=== PATIENT | female | born 1955 | race Caucasian/White ===

== ENCOUNTER → 2017-11-30 08:10 | Outpatient (CLI) | payer OTHER, SELFPAY ==
[2017-11-30 10:27] LABS: Cholesterol 241 mg/dL (200); Glucose 97 mg/dL (74-106); High Density Lipoprotein 57 mg/dL; T4 Free Direct 1.06 ng/dL (0.76-1.46); Thyroid Stim Hormone (TSH) 2.08 uIU/mL (0.358-3.74); Triglycerides 96 mg/dL; Very Low Density Lipoprotein 19 mg/dL (5-40)
== END ==
PROVIDERS: Family Provider Family Medicine; PCP Family Medicine; Referring Provider Family Medicine; Visit Provider Family Medicine
DX: Z13.220 Encounter for screening for lipoid disorders (principal); Z13.1 Encounter for screening for diabetes mellitus; F32.9 Major depressive disorder, single episode, unspecified; R63.5 Abnormal weight gain
CPT/HCPCS: 36415; 80061; 82947; 84439; 84443

== ENCOUNTER → 2018-01-30 08:28 | Outpatient (CLI) | payer OTHER, SELFPAY ==
--- NOTE | 2018-01-30 08:33 | BI_ITS ---
MAMMOGRAPHY - BILATERAL SCREENING REASON FOR EXAM: Female, 62 years old. Routine annual screening examination. PERTINENT HISTORY: Non-contributory. TECHNIQUE: Digital bilateral breast dequan (3D mammographic acquisition) in the CC and MLO projections. 2-D mediolateral oblique (MLO) and craniocaudad (CC) views of both breasts were obtained. CAD: Full Field Digital Mammography with Computer Added Detection was performed. COMPARISON: Comparison is made with prior outside examination dated September 30, 2007. FINDINGS: Breast Composition: There are scattered areas of fibroglandular density. There are no dominant masses or suspicious calcifications. There is a 5.8 mm slightly irregular nodular density seen in the central portion of the right breast on the craniocaudad view. This is not well visualized on the MLO view. The patient will be recalled for additional views of the right breast including compression spot views and 90 degree lateral view. Stable 3.7 mm well-defined nodular density in the axillary region of the right breast. This most likely represents a small lymph node. Stable benign-appearing bilateral axillary lymph nodes. No other significant abnormalities are identified. There has been no significant change since the prior study. BI/SCREENING MAMM (CAD), BILAT IMPRESSION: 5.8 mm slightly irregular nodular density seen in the central portion of the right breast on the craniocaudad view. The patient will be recalled for additional views. Recall Side: Right Breast ASSESSMENT CATEGORY: BIRADS Category 0: Incomplete. Need additional imaging evaluation. A letter regarding these results will be sent to the patient by the facility within 30 days. Approximately 10% of breast cancers are not detected by mammography. A normal mammogram should not delay biopsy of a clinically suspicious abnormality. [id number] Electronically Signed: Elmer Fox MD at 8:34 EST Tel [phone], Service support ,
--- OUTSIDE RECORDS SUMMARY | 2018-03-18 03:39 | XMS RPT_ITS ---
:1955 Author Organization [facility] Care Team Providers Name Role Phone Bowen Barnes Attending Unavailable Bowen Barnes Primary Care Unavailable Bowen Barnes Attending Unavailable Bowen Barnes Primary Care Unavailable Fabian Noguera Attending Unavailable Bowen Barnes Referring Unavailable Bowen Barnes Primary Care Unavailable Bowen Barnes Attending Unavailable Bowen Barnes Referring Unavailable Bowen Barnes Primary Care Unavailable PROBLEMS PROBLEMS DATE TYPE CONDITION / CODE ATTENDING STATUS SOURCE 11/30/2017 Unknown Z13.220 - Bowen Barnes Active [facility] Encounter for [facility] screening for Hospital lipoid disorders Repository / Z13.220(ICD-10) 11/30/2017 Unknown Z13.1 - Encounter Bowen Barnes for screening for Community diabetes mellitus Hospital / Z13.1(ICD-10) Repository 11/30/2017 Unknown F32.9 - Major Bowen Barnes Active [place] depressive Community disorder, single Hospital episode, Repository unspecified / F32.9(ICD-10) 11/30/2017 Unknown R63.5 - Abnormal Bowen Barnes Active [place] weight gain / Community R63.5(ICD-10) Hospital Repository PROCEDURES PROCEDURES No Procedure Records FoundRESULTS RESULTS DIAG MAMM W/CAD, Observed: 02/06/2018 Status: F Source: [place] UNILAT 1:52 PM [facility] Imaging Services [address] [place] [address] DIAG MAMM W/CAD, UNILAT MR#: [id number] Acct: [id number] Name: BRENDA BENITEZ Rep #: [id number] : 1955 F 62 From: Elmer Fox MD PCP: Bowen Barnes MD Status: REG CLI Study: DIAG MAMM W/CAD, UNILAT Date of Exam: 02/06/18 Exam# [id number] Ordering Dr: Bowen Barnes MD MAMMOGRAPHY - UNILATERAL DIAGNOSTIC: RIGHT BREAST REASON FOR EXAM: Female, 62 years old. Abnormal screening mammogram. PERTINENT HISTORY: Non-contributory. TECHNIQUE: Compression spot views of the right breast were obtained in the craniocaudad and MLO views. CAD: Full Field Digital Mammography with Computer Added Detection was performed. COMPARISON: Comparison is made with prior mammogram dated January 30, 2018. FINDINGS: Breast Composition: There are scattered areas of fibroglandular density. Stable 6 mm nodular density seen in the central most likely upper aspect of the right breast. Ultrasound is recommended. No other significant abnormalities are identified. BI/DIAG MAMM W/CAD, UNILAT IMPRESSION: Persistent 6 mm nodule in the right breast as described. Correlation with ultrasound is recommended. ASSESSMENT CATEGORY: BIRADS Category 0: Incomplete. Need additional imaging evaluation. A letter regarding these results will be sent to the patient by the facility within 30 days. Approximately 10% of breast cancers are not detected by mammography. A normal mammogram should not delay biopsy of a clinically suspicious abnormality. Electronically Signed: Elmer Fox MD at 15:02 EST Tel [phone], Service support , CC: Bowen Barnes MD Communications Project Manager: Signed BREAST LIMITED Observed: 02/06/2018 Status: F Source: [place] UNILATERAL 1:52 PM [facility] Imaging Services [address] [place] [address] Breast Limited Unilateral MR#: [id number] Acct: [id number] Name: BRENDA BENITEZ Rep #: [id number] : 1955 F 62 From: Elmer Fox MD PCP: Bowen Barnes MD Status: REG CLI Study: Breast Limited Unilateral Date of Exam: 02/06/18 Exam# [id number] Ordering Dr: Bowen Barnes MD STUDY: ULTRASOUND BREAST - RIGHT REASON FOR EXAM: Female, 62 years old. Abnormal screening mammogram. TECHNIQUE: Axial and longitudinal images of the RIGHT breast were performed with a high resolution ultrasound transducer. COMPARISON: Comparison is made with prior mammogram done earlier today as well as January 30, 2018. FINDINGS: RIGHT Breast: There is a 3 mm x 3 mm x 2 mm cyst at the 9:00 position breast 1 cm from nipple. US/Breast Limited Unilateral IMPRESSION: The mammographic abnormality corresponds to a 3 mm x 3 mm x 2 mm cyst. Routine mammographic follow-up is recommended. ASSESSMENT CATEGORY: BIRADS Category 2: Benign. A letter regarding these results will be sent to the patient by the facility within 30 days. Electronically Signed: Elmer Fox MD at 15:32 EST Tel [phone], Service support , CC: Bowen Barnes MD Communications Project Manager: Signed SCREENING MAMM (CAD), Observed: 01/30/2018 Status: F Source: [facility] BILAT 8:33 AM [facility] Imaging Services [address] [place] [address] SCREENING MAMM (CAD), BILAT MR#: [id number] Acct: [id number] Name: BRENDA BENITEZ Rep #: [id number] : 1955 F 62 From: Elmer Fox MD PCP: Bowen Barnes MD Status: REG CLI Study: SCREENING MAMM (CAD), BILAT Date of Exam: 01/30/18 Exam# [id number] Ordering Dr: Bowen Barnes MD MAMMOGRAPHY - BILATERAL SCREENING REASON FOR EXAM: Female, 62 years old. Routine annual screening examination. PERTINENT HISTORY: Non-contributory. TECHNIQUE: Digital bilateral breast dequan (3D mammographic acquisition) in the CC and MLO projections. 2-D mediolateral oblique (MLO) and craniocaudad (CC) views of both breasts were obtained. CAD: Full Field Digital Mammography with Computer Added Detection was performed. COMPARISON: Comparison is made with prior outside examination dated September 30, 2007. FINDINGS: Breast Composition: There are scattered areas of fibroglandular density. There are no dominant masses or suspicious calcifications. There is a 5.8 mm slightly irregular nodular density seen in the central portion of the right breast on the craniocaudad view. This is not well visualized on the MLO view. The patient will be recalled for additional views of the right breast including compression spot views and 90 degree lateral view. Stable 3.7 mm well-defined nodular density in the axillary region of the right breast. This most likely represents a small lymph node. Stable benign-appearing bilateral axillary lymph nodes. No other significant abnormalities are identified. There has been no significant change since the prior study. BI/SCREENING MAMM (CAD), BILAT IMPRESSION: 5.8 mm slightly irregular nodular density seen in the central portion of the right breast on the craniocaudad view. The patient will be recalled for additional views. Recall Side: Right Breast ASSESSMENT CATEGORY: BIRADS Category 0: Incomplete. Need additional imaging evaluation. A letter regarding these results will be sent to the patient by the facility within 30 days. Approximately 10% of breast cancers are not detected by mammography. A normal mammogram should not delay biopsy of a clinically suspicious abnormality. [id number] Electronically Signed: Elmer Fox MD at 8:34 EST Tel [phone], Service support , CC: Bowen Barnes MD Communications Project Manager: Signed LIPID PROFILE Collected: 11/30/2017 Status: F Source: [place] 8:20 AM [facility] TYPE CODE TESTS RESULT OUT OF RANGE REFERENCE UNITS LAB L501.4900 200 mg/dL High CHOL 241 Result Comment: <200 mg/dL Desirable 200-240 mg/dL Borderline >240 mg/dL High Risk LAB L501.5000 mg/dL Normal TRIG 96 Result Comment: The drugs N-Acetylcysteine and Metamizole may falsely depress this assay. Serum Triglycerides Reference Interval Normal <150 mg/dL Borderline high 150 - 199 mg/dL High 200 - 499 mg/dL Very High > or = 500 mg/dL LAB L501.6400 mg/dL Normal HDL 57 Result Comment: The drugs N-Acetylcysteine and Metamizole may falsely depress this assay. Reference Range HDL <40 mg/dL Low HDL Cholesterol HDL >or= 60 mg/dL High HDL Cholesterol LAB L501.6500 0-130 mg/dL High LDL 165 LAB L501.6600 5-40 mg/dL Normal VLDL 19 Performed By: #### L500.4100, L501.0100, L501.9520, L506.0400 #### [facility] [address] [place], [address] GLUCOSE Collected: 11/30/2017 Status: F Source: [place] 8:20 AM [facility] TYPE CODE TESTS RESULT OUT OF RANGE REFERENCE UNITS LAB L501.0100 74-106 mg/dL Normal GLU 97 Result Comment: Please note revised GLUCOSE reference range effective 2017. Performed By: #### L500.4100, L501.0100, L501.9520, L506.0400 #### [facility] [address] [place], [place], [address] THYROID STIM HORMONE Collected: 11/30/2017 Status: F Source: [place] (TSH) 8:20 AM [facility] TYPE CODE TESTS RESULT OUT OF RANGE REFERENCE UNITS LAB L501.9520 0.358-3.74 uIU/mL Normal TSH 2.08 Performed By: #### L500.4100, L501.0100, L501.9520, L506.0400 #### [facility] [address] [facility] [address] [place], [place], [address] T4 FREE DIRECT Collected: 11/30/2017 Status: F Source: [place] 8:20 AM [facility] TYPE CODE TESTS RESULT OUT OF RANGE REFERENCE UNITS LAB L506.0400 0.76-1.46 ng/dL Normal T4 FREE 1.06 DIRECT Performed By: #### L500.4100, L501.0100, L501.9520, L506.0400 #### [facility] [address] [facility] [place], [place], [address] URGENT CARE VISIT Observed: 04/01/2017 Status: F Source: [place] REPORT 9:46 AM [facility] [address] [place] [address] [address] [place] [address] OFFICE VISIT Date of Service: 04/01/17 MR#: [id number] Acct: [id number] Name: BRENDA BENITEZ Rep #: [id number] : 1955 Provider: Fabian GAMBOA Age/Sex: 61/F Location: [facility] Status: Signed Intake Vital Signs04/01/17 Height 5 ft 4 in 04/01/17 Weight: 206 lb 04/01/17 Body Mass Index (BMI) 35.3 Intake Visit Reasons: CHEST CONGESTION, SORE THROAT Security Dispatcher Required: No Is patient in pain?: No Allergies Sulfa (Sulfonamide Antibiotics) Allergy (Verified 04/01/17 09:36) Itching Medications amoxicillin 875 mg-potassium clavulanate 125 mg tablet 1 tab PO Q12H 10 Days #20 tab 04/01/17 [Rx Confirmed 04/01/17] PFSH Surgical History History of hysterectomy (Acute) Social History Smoking Status: Former smoker alcohol intake: never HPI HPI Details: BRENDA BENITEZ, is a 61 F who presents to the office today for sinus pain and pressure as well as a cough for approximately last 7 days. Patient states that she has had a cough and chest congestion for the 7 days however over the past 3-4 days her nasal pain and pressure has increased causing headaches. She states that her cough has been dry and nonproductive and denies hemoptysis, shortness of breath or difficulty breathing. She does report that the headaches are made better with ibuprofen or Tylenol. No fever, chills, sweats. No other associated symptoms or alleviating/aggravating factors. ROS Const Constitutional: Positive for headache(s); no fever(s), chills, night sweats or abnormal sleep pattern ENT ENT: Positive for headache(s), nasal congestion, sinus pressure, sinus pain and nasal discharge; no ear pain Resp Respiratory: Positive for cough Cough: Yes non-productive; no shortness of breath, hemoptysis, wheezing or pain on inspiration Cardio Cardiology: No shortness of breath, irregular heart rhythm or fast heart rate Neuro Neurology: Positive for headache(s); no confusion Psych Psychiatric: No abnormal sleep pattern, No confusion Aller/Imm Allergy/Immunologic: No wheezing Exam Const General: cooperative HENMT Head: normal to inspection Ears: hearing grossly normal bilaterally, TM's normal bilaterally, EAC's normal Nose: nasal discharge purulent Face and sinus: sinus tenderness frontal and maxillary Mouth: oral mucosae normal Throat: abnormal tonsil bilaterally, postnasal drainage Resp Effort AND Inspection: normal respiratory effort Auscultation: Bilateral: Clear to Auscultation Cardio Rate: regular rate Rhythm: regular rhythm Neuro General: alert, CN's II-XI intact bilaterally Psych Appearance: grossly normal Mental Status: mental status grossly normal Assessment AND Plan Problems 1. Acute non-recurrent frontal sinusitis J01.10 Status Acute Plan Encouraged to get plenty of rest, drink lots of clear liquids, and use Tylenol or Ibuprofen (unless contraindicated) for fever and comfort. Patient also educated on other symptomatic management techniques. To be seen in 7-10 days if no improvement; sooner if worsening of symptoms. Patient advised of potential red flags and when appropriate report to the ED. Patient verbalized understanding of all the above. This note was generated with bettermarks dictation software. It may contain incorrect words, spelling, and punctuation that were not noted in checking the note before signing. Medications New: Coding Level of Care Code Off vis,est,level 3 Diagnoses Acute non-recurrent frontal sinusitis J01.10 Sinusitis location: frontal Recurrence: non-recurrent 04/01/17 0946 <Electronically signed by Fabian GAMBOA> Date Fabian GAMBOA Cosigner Signature: Date (if applicable) CC: ALLERGIES ALLERGIES DATE TYPE / CODE NAME / CODE REACTION SEVERITY SOURCE 04/01/2017 Drug Sulfa Itching Unknown [facility] Allergy/4160 (Sulfonamide Hospital 84448(SNOMED Antibiotics)/ Repository CT) [id number](RX NORM) ENCOUNTERS ENCOUNTERS ADMIT/DISCHARGE ACCOUNT ADMITTING ENCOUNTER LOCATION SOURCE NUMBER CLASS 02/06/2018 [id number] Ambulatory [place] [facility] 1 [facility] ing:OPUS Repository 01/30/2018 [id number] Ambulatory [place] [facility] 8 [facility] ing:OPBI Repository 11/30/2017 [id number] Ambulatory [facility] 8 [facility] ing:MTLAB Repository 04/01/2017/ [id number] Ambulatory BMSBuilding:B [facility] 8 9 [facility] Repository PAYERS PAYERS ENCOUNTER GUARANTOR PAYER SUBSCRIBER SOURCE 02/06/2018 BRENDA S Primary BRENDA S [facility] [id number] Insurance:Kenia OLIVASB: [facility] margo BROWNE [facility]: [id number] [address]Tey: [id number] Repository e Date:4861-03-75VZ () [address] [place] [phone]: 02/06/2018 Secondary NOT GIVENUNK [facility] Insurance:SELF PAY [facility] Number: Effective Repository Date:2018-02-05 01/30/2018 BRENDA S Primary BRENDA S Roman [id number] Insurance:AULTCAREPol JOHNSONDOB: Community CHIQUI MALIK, icy Number: [id number] [address]Ndq: [id number] Repository e Date:7052-51-26YL () [address] [place] [id number]: 01/30/2018 Secondary NOT GIVENUNK [place] Insurance:SELF PAY [facility] Number: Effective Repository Date:2017-12-14 11/30/2017 BRENDA S Primary BRENDA S [facility] [id number] Insurance:AULTCAREPol JOHNSONDOB: [facility] CHIQUI MALIK, icy Number: [id number] [address]Ket: [id number] Repository e Date:7515-74-78AL () [address] [place] [id number]: 11/30/2017 Secondary NOT GIVENUNK [place] Insurance:SELF PAY [facility] Number: Effective Repository Date:2017-11-30 04/01/2017 BRENDA S Primary BRENDA S [facility] [id number] Insurance:AULTCAREPol JOHNSONDOB: Community CHIQUI MALIK, icy Number: [id number] [address]Tjt: [id number] Repository e Date:9105-42-87RB () [address] [place] [id number]: 04/01/2017 Secondary NOT GIVENUNK [facility] Insurance:SELF PAY [facility] Number: Effective Repository Date:2017-04-01
== END ==
PROVIDERS: Family Provider Family Medicine; PCP Family Medicine; Visit Provider Family Medicine
DX: Z12.31 Encounter for screening mammogram for malignant neoplasm of breast (principal); N63.10 Unspecified lump in the right breast, unspecified quadrant
CPT/HCPCS: 77063; 77067

== ENCOUNTER → 2018-02-06 13:48 | Outpatient (CLI) | payer OTHER, SELFPAY ==
--- NOTE | 2018-02-06 13:51 | US_ITS ---
STUDY: ULTRASOUND BREAST - RIGHT REASON FOR EXAM: Female, 62 years old. Abnormal screening mammogram. TECHNIQUE: Axial and longitudinal images of the RIGHT breast were performed with a high resolution ultrasound transducer. COMPARISON: Comparison is made with prior mammogram done earlier today as well as January 30, 2018. FINDINGS: RIGHT Breast: There is a 3 mm x 3 mm x 2 mm cyst at the 9:00 position breast 1 cm from nipple. US/Breast Limited Unilateral IMPRESSION: The mammographic abnormality corresponds to a 3 mm x 3 mm x 2 mm cyst. Routine mammographic follow-up is recommended. ASSESSMENT CATEGORY: BIRADS Category 2: Benign. A letter regarding these results will be sent to the patient by the facility within 30 days. Electronically Signed: Elmer Fox MD at 15:32 EST Tel [phone], Service support ,
--- NOTE | 2018-02-06 13:51 | BI_ITS ---
MAMMOGRAPHY - UNILATERAL DIAGNOSTIC: RIGHT BREAST REASON FOR EXAM: Female, 62 years old. Abnormal screening mammogram. PERTINENT HISTORY: Non-contributory. TECHNIQUE: Compression spot views of the right breast were obtained in the craniocaudad and MLO views. CAD: Full Field Digital Mammography with Computer Added Detection was performed. COMPARISON: Comparison is made with prior mammogram dated January 30, 2018. FINDINGS: Breast Composition: There are scattered areas of fibroglandular density. Stable 6 mm nodular density seen in the central most likely upper aspect of the right breast. Ultrasound is recommended. No other significant abnormalities are identified. BI/DIAG MAMM W/CAD, UNILAT IMPRESSION: Persistent 6 mm nodule in the right breast as described. Correlation with ultrasound is recommended. ASSESSMENT CATEGORY: BIRADS Category 0: Incomplete. Need additional imaging evaluation. A letter regarding these results will be sent to the patient by the facility within 30 days. Approximately 10% of breast cancers are not detected by mammography. A normal mammogram should not delay biopsy of a clinically suspicious abnormality. Electronically Signed: Elmer Fox MD at 15:02 EST Tel [phone], Service support ,
== END ==
PROVIDERS: Family Provider Family Medicine; PCP Family Medicine; Visit Provider Family Medicine
DX: N60.01 Solitary cyst of right breast (principal)
CPT/HCPCS: 76642; 77065

== ENCOUNTER 2019-01-11 10:43 | Emergency (ER) | payer MEDICARE, SELFPAY ==
[2019-01-11 10:44] VITALS: BP 200/98; PULSE 93; RESP 19; TEMP 36.5; O2SAT 99; BMI 39.0
--- NOTE | 2019-01-11 10:55 | EKG12_ITS ---
Test Reason : CP Blood Pressure : / mmHG Vent. Rate : 081 BPM Atrial Rate : 081 BPM P-R Int : 136 ms QRS Dur : 074 ms QT Int : 374 ms P-R-T Axes : 029 -06 -17 degrees QTc Int : 434 ms Sinus rhythm with Premature atrial complexes Nonspecific ST and T wave abnormality Abnormal ECG Confirmed by TIMOTHY BLAS, TANGELA ([id number]), editorial clerk NATASHA YEH ([id number]) on 01/14/2019 9:56:28 AM Referred By: NADYA Confirmed By:TANGELA AGUIRRE MD
[2019-01-11] MEDS: Mag Hydrox/Al Hydrox/Simeth 30 ML UDC PO (11:03)
[2019-01-11 11:06] LABS: Absolute Lymphocyte Count 1.67 X10^3/uL (0.83-4.51); Absolute Neutrophil Count 7.5 X10^3/uL (2.0-7.7); Basophil# 0.07 X10^3/uL; Basophil% 0.7 % (0-1); Eosinophil# 0.25 X10^3/uL; Eosinophils% 2.5 % (0-5); Hematocrit 42.9 % (37-47); Hemoglobin 13.7 g/dL (12.0-15.0); Lymphocyte # 1.67 X10^3/ul (4.0); Lymphocyte % 16.5 % (19-41); Mean Corp Hgb Conc 31.9 g/dL (32-36); Mean Corpuscular Hgb 26.8 pg (27.0-32.0); Mean Platelet Vol. 9.7 fl (6.2-12.0); Monocyte# 0.64 X10^3/uL; Monocyte% 6.3 % (0-10); NRBC Flagged by Analyzer 0 % (0-5); Neutrophil # 7.47 X10^3/uL (2.7-7.7); Neutrophil % 73.6 % (47-70); Platelet Count 396 K/mm3 (150-450); RBC Distribution Width CV 14.2 % (11.6-14.6); RBC Distribution Width SD 43.3 fl (35.1-43.9); Red Blood Count 5.11 M/mm3 (4.2-5.4); White Blood Count 10.1 K/mm3 (4.4-11.0)
[2019-01-11 11:27] LABS: ALB/GLOB Ratio 0.9 RATIO (0.9-2.4); AST(SGOT) 37 U/L (15-37); Alanine Aminotransfer ALT/SGPT 53 U/L (13-56); Albumin, Serum 3.7 g/dL (3.2-5.0); Alkaline Phosphatase 100 U/L (45-117); Anion Gap 7 (5-15); BUN 14 mg/dL (7-18); Calcium,Total 9.5 mg/dL (8.5-10.1); Chloride 107 mmol/L (98-107); EST Glomerular Filtration Rate 89 mL/min (>60); Est Glom Filt Rate - Afr Amer 108 mL/min (>60); Estimated Creatinine Clearance 66.28 ml/min; Globulin 4.1 g/dL (2.2-4.2); Glucose 106 mg/dL (74-106); Potassium 4.2 mmol/L (3.5-5.1); Protein, Total 7.8 g/dL (6.4-8.2); Sodium Level 141 mmol/L (136-145)
--- NOTE | 2019-01-11 11:38 | ED.VIS.GEN ---
History of Present Illness Chief Complaint: Chest Pain Detail of Chief Complaint: In in the epigastric area that started this morning Informant: Patient Onset: Today Context: Sudden Onset Timing: Continuous Quality: Dull aching epic gastric Location: Epigastric region Current Severity: Mild Maximum Severity: Severe Worsened by: Nothing Relieved by: Nothing Associated Symptoms: No associated symptoms with no radiation Narrative: Patient is 63-year-old woman with no sniffing past medical history presents with epigastric discomfort that she noted upon awakening. The pain does not radiate. Describes a dull ache. Is also burning quality. There is no radiation. There is no associated symptoms. It is not related to exertion. She has not noted any dyspnea or chest discomfort with exertion past week. She denies history of PE or DVT. She denies leg pain, swelling discoloration. She denies black or maroon stool. She denies vomiting. She denies shortness of breath, cough or URI symptoms. Prior similar symptoms: Yes - Not as severe in the past, due to GERD Recent Illness/Hospitalization: No - Past Medical History (1) History of gastroesophageal reflux (GERD) Status: Acute Past Medical History - Allergies and Home Meds Allergies/Adverse Reactions: Allergies Sulfa (Sulfonamide Antibiotics) Allergy (Verified 04/01/17 09:36) Itching Primary Care Physician: Bowen Barnes MD [Primary Care Provider] - Prior records reviewed: Yes Surgical History: hysterectomy Lives: Spouse/ Significant Other Smoking Status: Former smoker Alcohol: Rare Drugs: None Review of Systems General: Denies: Chills, Fever Eyes: Denies: Visual changes - bilaterally, Blurred Vision - bilaterally ENT: Denies: Rhinorrhea, Sore throat Cardiovascular: Reports: Chest pain. Denies: Palpitations, Heart racing, -, - Respiratory: Denies: Dyspnea, Cough, Dyspnea on exertion, Orthopnea, Paroxysmal nocturnal dyspnea Gastrointestinal: Reports: Abdominal pain. Denies: Nausea, Vomiting, Diarrhea, Constipation, Melena, Hematochezia, -, - Musculoskeletal: Denies: Myalgias, Arthralgias, Neck pain, Back pain, Swelling, Extremity Pain, -, - Skin: Denies: Rash, Wounds Endocrine: Denies: Polyuria, Polydipsia Hematologic: Denies: Easy bruising, Easy bleeding Physical Exam Vital Signs/Narrative: Vital Signs Temp Pulse Resp BP Pulse Ox 01/11/19 10:44 97.7 F L 93 19 H 200/98 H 99 Inital Vital Signs reviewed: Yes General: Well nourished, Well developed, - - Does appear uncomfortable. Head: Normocephalic, Atraumatic Eyes: Perrl, EOMI. Negative for: Pale conjunctiva, Scleral icterus ENT: Moist mucous membranes, No rhinorrhea Neck: Supple, Nontender, No lymphadenopathy, No JVD Cardiovascular: Regular rate, Regular rhythm, No murmurs, Normal S1, Normal S2 Respiratory: No distress, CTA bilaterally, Chest nontender Abdomen: Soft, Nondistended, Normal bowel sounds, No masses, Tender. Negative for: Nontender, Hepatomegaly, Splenomegaly, Mass, Pulsatile mass Rectal: Deferred Extremities: Nontender, No edema, - - There is no asymmetry, swelling, discoloration, leg vein distention, palpable cords or tenderness along the distribution of the deep venous system. Skin: Normal color, No rash Neurological: Alert, Oriented x3, Cranial nerves II-XII grossly intact, Normal Strength, Normal Sensation Psychological: Normal affect, Normal Mood Diagnostic/Tx/Re-eval Laboratory Results 01/11/19 01/11/19 10:45 10:45 WBC 10.1 RBC 5.11 Hgb 13.7 Hct 42.9 MCV 84.0 MCH 26.8 L MCHC 31.9 L RDW Std Deviation 43.3 RDW Coeff of Zahra 14.2 Plt Count 396 MPV 9.7 Immature Gran % (Auto) 0.400 Neut % (Auto) 73.6 H Lymph % (Auto) 16.5 L [place] % (Auto) 6.3 Eos % (Auto) 2.5 Baso % (Auto) 0.7 Absolute Neuts (auto) 7.5 Absolute Lymphs (auto) 1.67 Nucleated RBC % 0 Sodium 141 Potassium 4.2 Chloride 107 Carbon Dioxide 27.0 Anion Gap 7 BUN 14 Creatinine 0.70 Estim Creat Clear Calc 66.28 Est GFR (MDRD) Af Amer 108 Est GFR (MDRD) Non-Af 89 BUN/Creatinine Ratio 20.0 Glucose 106 Calcium 9.5 Total Bilirubin 0.50 AST 37 ALT 53 Alkaline Phosphatase 100 Troponin I < 0.015 Total Protein 7.8 Albumin 3.7 Globulin 4.1 Albumin/Globulin Ratio 0.9 - EKG Initial EKG Interpretation: Sinus Rhythm - Sinus rhythm with a ventricular rate of 81. There are premature atrial beats noted. IN interval 136 ms. QS duration 74 ms. QT duration 3 and 74 ms. [place]ona is normal. There is some motion artifact which computer is reading is no ossific ST-T wave changes. - Medical Decision Making Diagnoses include esophagitis, reflux, gastritis, esophageal spasm, cardiac ischemia, since patient had no relief with Tums and omeprazole need to evaluate for cardiac etiology. EKG was obtained as well as troponin and appropriate blood work. Her work-up was negative. She did receive a GI cocktail. When she was reassessed at 1145 she states pain is 90% resolved. With normal troponin IV hours of pain and a heart score of 2 because of age she is a candidate for outpatient follow-up and work-up if needed. ED Disposition - Plan for ED Patient: Disposition: Home or Assisted Living Diagnosis: Chest pain due to gastrointestinal reflux disease Instructions: GERD (Adult) Referrals: Bowen Barnes MD [Primary Care Provider] - 3-5 Days if not improving
[2019-01-11 12:02] VITALS: BP 181/91; PULSE 78; RESP 21; O2SAT 95
--- NOTE | 2019-01-11 12:03 | ED.RN ---
IV DC'ED, CATHETER INTACT, SMALL GAUZE DRESSING PLACED. DISCHARGE INSTRUCTIONS GIVEN TO AND REVIEWED WITH PATIENT, PATIENT DENIES QUESTIONS OR CONCERNS AND VOICES UNDERSTANDING OF DISCHARGE INSTRUCTIONS. PT AMBULATES OUT OF ROOM WITHOUT DIFFICULTY.
== END 2019-01-11 12:04 | disposition home or self-care (01) ==
PROVIDERS: Emergency Provider Emergency Medicine; Family Provider Family Medicine; PCP Family Medicine
DX: K21.9 Gastro-esophageal reflux disease without esophagitis (principal); Z87.891 Personal history of nicotine dependence
CPT/HCPCS: 80053; 84484; 85025; 93005; 99285; A4216

== ENCOUNTER → 2019-02-13 15:34 | Outpatient (CLI) | payer MEDICARE, SELFPAY ==
--- NOTE | 2019-02-13 15:38 | BI_ITS ---
MAMMOGRAPHY - BILATERAL SCREENING 3-D TOMOSYNTHESIS REASON FOR EXAM: Female, 63 years old. Routine annual screening mammogram PERTINENT HISTORY: No significant family history. TECHNIQUE: 2-D mammograms and 3-D Tomosynthesis of the breast (s) were performed. CAD was performed. COMPARISON: Unilateral right mammogram dated February 06, 2018. FINDINGS: The breast composition is almost entirely fat. Scattered benign calcifications are seen. No dense spiculated masses or suspicious microcalcifications are identified. No architectural distortion is identified. There is no skin thickening or retraction. Stable lymph nodes. There has been no significant change since the prior study. BI/SCREEN MAMM (CAD) W/JELENA BILAT IMPRESSION: No mammographic signs of malignancy. Routine yearly mammograms recommended. ASSESSMENT CATEGORY: BIRADS Category 2: Benign. A letter regarding these results will be sent to the patient by the facility within 30 days. FOLLOW UP RECOMMENDATION: Yearly follow up mammogram recommended. (A) Approximately 10% of breast cancers are not detected by mammography. A normal mammogram should not delay biopsy of a clinically suspicious abnormality. Electronically Signed: Roel Montemayor MD at 17:48 EST , Service support ,
== END ==
PROVIDERS: Family Provider Family Medicine; PCP Family Medicine; Referring Provider Family Medicine; Visit Provider Family Medicine
DX: Z12.31 Encounter for screening mammogram for malignant neoplasm of breast (principal)
CPT/HCPCS: 77063; 77067

== ENCOUNTER 2019-02-18 12:58 | Inpatient (IN) | payer MEDICARE, SELFPAY ==
[2019-02-18 12:59] VITALS: BP 166/96; PULSE 92; RESP 15; TEMP 36.8; O2SAT 96; BMI 38.2
--- NOTE | 2019-02-18 13:31 | CT_ITS ---
STUDY: CT ABDOMEN AND PELVIS WITHOUT CONTRAST REASON FOR EXAM: Female, 63 years old. Left flank pain, HX KS AND LITHOTRIPSY RADIATION DOSAGE (If Supplied By Facility): CTDIvol = ( 20.99 ) mGy, DLP = ( 1111.78 ) mGycm TECHNIQUE: Transaxial images were obtained from the dome of the diaphragm to the symphysis pubis without oral contrast, and without intravenous contrast. Sagittal and coronal images were reconstructed. Individualized dose optimization techniques were used for this CT. COMPARISON: 2013 FINDINGS: The visualized lung bases are unremarkable. The visualized portions of the heart are within normal limits. There is decreased attenuation of the liver consistent with steatosis. Normal gallbladder and extrahepatic biliary system. Normal spleen. Normal pancreas. Normal bilateral adrenal glands. Normal appearing right kidney. The left kidney shows hydronephrosis and hydroureter with perinephric and periureteral inflammatory stranding. There are multiple nonobstructing cortical medullary junction stones in the left kidney and a 9 mm stone in the proximal left ureter and coronal region image 71 likely responsible for the obstruction. Normal left kidney. Normal visualized stomach. Normal small intestine. There are multiple colonic diverticula consistent with diverticulosis. The appendix is visualized and appears normal. Findings best seen on coronal recon images 69 through 74 There is diffuse atherosclerotic calcification of the abdominal aorta, without a demonstrated aneurysm. Normal inferior vena cava. Normal retroperitoneum. Normal urinary bladder. Normal abdominal wall. There are diffuse degenerative changes of the visualized lumbar spine. CT/Abdomen/Pelvis without Cont IMPRESSION: 9 mm stone in the proximal left ureter causing hydronephrosis, hydroureter, perinephric and periureteral inflammatory stranding Nonobstructing left nephrolithiasis Fatty liver Colonic diverticulosis Degenerative bony changes Electronically Signed: Donald Gan MD at 15:41 EST , Service support ,
[2019-02-18] MEDS: 0.9% Normal Saline 1,000 ML 250 ML IV (13:53)
[2019-02-18] MEDS: Ketorolac 30 MG/ML Syringe IV ×2 (13:55→21:12)
[2019-02-18] MEDS: Ondansetron 4 MG/2 ML Vial IV ×2 (13:55→19:36)
[2019-02-18] MEDS: Morphine 4 MG/ML Syringe IV (13:56)
[2019-02-18 14:33] LABS: Absolute Lymphocyte Count 1.08 X10^3/uL (0.83-4.51); Absolute Neutrophil Count 11.7 X10^3/uL (2.0-7.7); Basophil# 0.06 X10^3/uL; Basophil% 0.4 % (0-1); Eosinophil# 0.11 X10^3/uL; Eosinophils% 0.8 % (0-5); Hematocrit 41.1 % (37-47); Hemoglobin 13.1 g/dL (12.0-15.0); Lymphocyte # 1.08 X10^3/ul (4.0); Lymphocyte % 7.7 % (19-41); Mean Corp Hgb Conc 31.9 g/dL (32-36); Mean Corpuscular Hgb 26.7 pg (27.0-32.0); Mean Corpuscular Volume 83.9 fL (81-99); Mean Platelet Vol. 9.9 fl (6.2-12.0); Monocyte# 1.01 X10^3/uL; Monocyte% 7.2 % (0-10); NRBC Flagged by Analyzer 0 % (0-5); Neutrophil # 11.69 X10^3/uL (2.7-7.7); Neutrophil % 83.5 % (47-70); Platelet Count 345 K/mm3 (150-450); RBC Distribution Width SD 42.6 fl (35.1-43.9)
[2019-02-18 14:43] LABS: Anion Gap 5 (5-15); BUN 14 mg/dL (7-18); BUN/Creat Ratio 13.1 RATIO (10-20); Calcium,Total 9.1 mg/dL (8.5-10.1); Chloride 107 mmol/L (98-107); Creatinine, Serum 1.07 mg/dL (0.55-1.02); EST Glomerular Filtration Rate 55 mL/min (>60); Est Glom Filt Rate - Afr Amer 66 mL/min (>60); Estimated Creatinine Clearance 43.36 ml/min; Glucose 102 mg/dL (74-106); Potassium 4.1 mmol/L (3.5-5.1); Sodium Level 140 mmol/L (136-145)
[2019-02-18 14:54] LABS: Bacteria 0 SEEN /hpf (None Seen); Mucous, Urine 0 SEEN /hpf (<or=2+)
[2019-02-18 15:06] LABS: Color, Urine Yellow (Yellow); Glucose, Dipstick Normal (Normal); Ketone-Dipstick 5 mg/dl (Negative); Leukocyte Esterase-Dipstick 25 /ul (Negative); Nitrite-Dipstick Negative (Negative); Occult Blood-Urine 150 /ul (Negative); Protein-Dipstick 30 mg/dl (Negative); Urine Bilirubin Dipstick Negative (Negative); Urine Clarity Sl. Cloudy (Clear); Urine Urobilinogen Normal (Normal)
[2019-02-18 15:13] LABS: Red Blood Cells-Urine 10-25 SEEN /hpf (0-5); Squamous Epithelial Cells - UA 5-10 SEEN /hpf (5-10); White Blood Cells 0-5 SEEN /hpf (0-5)
[2019-02-18 16:11] VITALS: PULSE 77; RESP 16; O2SAT 97
--- NOTE | 2019-02-18 16:25 | ED.DCSUM_ITS ---
History of Present Illness Chief Complaint: Flank Pain Detail of Chief Complaint: Left flank pain Informant: Patient Onset: Yesterday Timing: Waxes and wanes Current Severity: Moderate Maximum Severity: Moderate Narrative: Patient presents with left flank pain that started rather mildly last night. Pain worsened today. She has had vomiting secondary to pain. She has history of kidney stones and this feels similar. She has required surgery in the past for her kidney stones. She follows with Dr. Mora. - Past Medical History (1) Kidney stones Status: Chronic (2) History of gastroesophageal reflux (GERD) Status: Chronic Past Medical History - Allergies and Home Meds Allergies/Adverse Reactions: Allergies Sulfa (Sulfonamide Antibiotics) Allergy (Verified 02/18/19 13:01) Itching Primary Care Physician: Bowen Barnes MD [Primary Care Provider] - Doctors: Dr. Mora Prior records reviewed: Yes Surgical History: hysterectomy Smoking Status: Former smoker Review of Systems General: Denies: Chills, Fever Eyes: Denies: Visual changes - bilaterally ENT: Denies: Bilateral ear pain Cardiovascular: Denies: Chest pain Respiratory: Denies: Dyspnea, Cough Gastrointestinal: Reports: Abdominal pain - Left flank, Nausea, Vomiting Genitourinary: Denies: Dysuria Musculoskeletal: Reports: Back pain - Left flank pain Skin: Denies: Rash Neurological: Denies: Headache Hematologic: Denies: Easy bruising Allergy: Denies: Uticaria Physical Exam Vital Signs/Narrative: Vital Signs Temp Pulse Resp BP Pulse Ox 02/18/19 16:11 77 16 97 02/18/19 12:59 98.3 F 92 15 166/96 H 96 Inital Vital Signs reviewed: Yes General: Well nourished, Well developed Head: Normocephalic ENT: Moist mucous membranes Neck: Supple Cardiovascular: Regular rate, Regular rhythm Respiratory: No distress, CTA bilaterally Abdomen: Soft, Nontender Back: CVA tenderness Extremities: Nontender Skin: Normal color, No rash Neurological: Alert, Oriented x3 Psychological: Normal affect Diagnostic/Tx/Re-eval Impressions Abdomen/Pelvis CT 02/18/19 13:31 IMPRESSION: 9 mm stone in the proximal left ureter causing hydronephrosis, hydroureter, perinephric and periureteral inflammatory stranding Nonobstructing left nephrolithiasis Fatty liver Colonic diverticulosis Degenerative bony changes Electronically Signed: Donald Gan MD at 15:41 EST , Service support , 02/18/19 13:31 Abdomen/Pelvis without Cont [CT] Stat Laboratory Results 02/18/19 02/18/19 02/18/19 14:05 14:05 14:50 WBC 14.0 H RBC 4.90 Hgb 13.1 Hct 41.1 MCV 83.9 MCH 26.7 L MCHC 31.9 L RDW Std Deviation 42.6 RDW Coeff of Zahra 14.0 Plt Count 345 MPV 9.9 Immature Gran % (Auto) 0.400 Neut % (Auto) 83.5 H Lymph % (Auto) 7.7 L [place] % (Auto) 7.2 Eos % (Auto) 0.8 Baso % (Auto) 0.4 Absolute Neuts (auto) 11.7 H Absolute Lymphs (auto) 1.08 Nucleated RBC % 0 Sodium 140 Potassium 4.1 Chloride 107 Carbon Dioxide 28.0 Anion Gap 5 BUN 14 Creatinine 1.07 H Estim Creat Clear Calc 43.36 Est GFR (MDRD) Af Amer 66 Est GFR (MDRD) Non-Af 55 L BUN/Creatinine Ratio 13.1 Glucose 102 Calcium 9.1 Urine Color Yellow Urine Clarity Sl. Cloudy Urine pH 5.0 Ur Specific [place] 1.020 Urine Protein 30 H Urine Glucose (UA) Normal Urine Ketones 5 H Urine Occult Blood 150 H Urine Nitrite Negative Urine Bilirubin Negative Urine Urobilinogen Normal Ur Leukocyte Esterase 25 H Urine RBC 10-25 SEEN Urine WBC 0-5 SEEN Ur Squamous Epith Cells 5-10 SEEN Urine Bacteria 0 SEEN Urine Mucus 0 SEEN - Medical Decision Making Patient is given morphine, Toradol, Zofran, and IV fluids. On repeat evaluation she is resting comfortably. She does have elevated blood pressure but denies having significant pain, rating it only at a 2. She states her PCP has been monitoring her blood pressure. Test results were discussed with patient and daughter at bedside. Patient is known to Dr. Mora. I was able to contact him. He is currently traveling back to the area and will be back in [facility]. He is willing to see the patient first thing tomorrow morning. I will speak with hospitalist. ED Disposition - Plan for ED Patient: Disposition: Acute Care Hospital [facility] Diagnosis: Kidney stone Referrals: Bowen Barnes MD [Primary Care Provider] -
--- NOTE | 2019-02-18 16:53 | PCM.HP.STD ---
Problem List (1) Hydronephrosis with renal calculous obstruction Status: Acute (2) Elevated BP without diagnosis of hypertension Status: Acute (3) GERD (gastroesophageal reflux disease) Status: Chronic Qualifiers: Esophagitis presence: esophagitis presence not specified Qualified Code(s): K21.9 - Gastro-esophageal reflux disease without esophagitis (4) Obesity (BMI 30-39.9) Status: Chronic History of Present Illness Date of Admission: 02/18/19 Chief Complaint: Dysuria, Flank pain The patient is a 63 y/o F w/ PMHx: GERD, Obesity, Hx Nephrolithiasis (L sided w/ prior intervention needs), Hx Elevated BP without HTN Dx being monitored by her PCP who presents to the [facility] ED on 02/18/19 with onset L flank pain worsening since evening prior, described as throbbing and dull aching, ongoing, at its worse 6 out of 10 upon presentation, currently now rated 2-3 out of 10 following ED pain regimen with concurrent nausea with emesis with no fevers or chills, following with Dr. Mora. Dr. Mora was contacted per ED and currently out of state but returning 02/19/18 and available to see patient at that time with planned OR given severity and size. Work-up in the ED included T 90.3, heart rate 92, BP 166/96, respiratory rate 15, 96% on room air, CBC with WBC 14, hemoglobin 13.1, platelet 345 with left shift, BMP with BUN/creatinine 14/1.05, urinalysis with elevated specific gravity 1.020, protein 30, ketones 5, occult blood 150, negative nitrite, leukocyte esterase 25, RBC 10-25, WBC only 0-5 but poor sample with squamous epithelial cells 5-10 and no market urine bacteria noted, CT abdomen and pelvis with a 9 mm stone in the proximal left ureter causing hydronephrosis, hydroureter, perinephric and periureteral inflammatory stranding, nonobstructing left nephrolithiasis, fatty liver, colonic diverticulosis with degenerative bony changes evident. In the ED patient ministered normal saline, Toradol, morphine and Zofran therapy. Past Medical History Past Medical History (Chronic Problems): Chronic Problems (Last Reviewed 04/01/17 @ 09:36 by Tere Lynch) History of gastroesophageal reflux (GERD) (Chronic) Kidney stones (Chronic) GERD (gastroesophageal reflux disease) (Chronic) Obesity (BMI 30-39.9) (Chronic) Medical History: Medical History (Last Reviewed 04/01/17 @ 09:36 by Tere Lynch) History of hysterectomy Z98.890, Z90.710 Allergies Sulfa (Sulfonamide Antibiotics) Allergy (Verified 02/18/19 13:01) Itching Home Medications: Ambulatory Orders Medication Instructions Recorded NK 01/11/19 Surgical History: - - Bilateral tubal ligation, hysterectomy, prior nephrolithiasis left-sided intervention. 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 Tobacco Use: Non-smoker Alcohol: None Drugs: None - *Family History Maternal History Items: Hypertension Paternal History Items: Diabetes, Hypertension Review of Systems Constitutional: Reports: Anorexia, Malaise, Weakness, Fatigue. Denies: Chills, Fever, Weight Change HEENT: Denies: Head Aches, Sinus Congestion, Sinus Drainage Cardiovascular: Denies: Chest Pain, Palpitations Respiratory: Denies: Cough, Shortness of breath at rest, Sputum production Gastrointestinal: Reports: Abdominal Pain, Nausea. Denies: Vomiting Genitourinary: Reports: Dysuria, - - L flank pain Musculoskeletal: Reports: Back Pain. Denies: Joint Pain, Joint Tenderness Skin: Denies: Rash, Wounds Neurological: Denies: Numbness, Tingling, Focal weakness Psychiatric: Denies: Anxiety, Depression, Homicidal Ideations, Suicidal Ideations Hematologic/ Lymphatic: Denies: Easy Bruising, Easy Bleeding VTE Information - Inpt Only VTE Present on Admission: No VTE Mechan Device Prophylaxis: SCD's VTE Pharm Prophylaxis ordered?: No Reason prophylaxis not ordered:: Medical Contraindication Patient Problems: Active and Suspected Problems (Last Reviewed 04/01/17 @ 09:36 by Tere Lynch) Hydronephrosis with renal calculous obstruction (Acute) Elevated BP without diagnosis of hypertension (Acute) Subjective: Seated upright in ED bed, notes improved since initial presentation, rating currently left flank pain to 2-3 out of 10. Objective: Physical Examination: General: awake, alert, oriented x 3 and cooperative, seated upright in the ED bed, notes pain improved, currently no acute distress. Skin: normal color, turgor, no icterus, cyanosis. HEENT: AT/NC, EOMI, PERRLA, dry MM, no carotid bruits or JVD noted. Lungs: CTA bilaterally, moderate effort, moderate decrease BL bases, no rales, ronchi or wheezing. Heart: Regular rate and rhythm; no gallop, rub audible. Abdomen: soft, obese, primarily left-sided flank discomfort with palpation, some discomfort to left lower quadrant, no rebound or guarding, nondistended, distant normal bowel sounds, no HSM; of her habitus makes examination difficult. Extremities: no cyanosis, clubbing, or edema. Neurological: patient awake, alert, oriented x 3; cognitive function intact; pupils equally reactive to light and accomodation; cranial nerves II-XII grossly normal, moving all 4 extremities, no focal deficits, strength moderately to severely globally decreased secondary to acute presentation and complaints. Psychiatric: affect appears fatigued, moderately flat, no acute evidence of depressive or anxiety feelings. - Physical Exam Vitals/I&O's: Vital Signs Temp Pulse Resp BP Pulse Ox 98.3 F 77 16 166/96 H 97 02/18/19 12:59 02/18/19 16:11 02/18/19 16:11 02/18/19 12:59 02/18/19 16:11 Oxygen Delivery Method Room Air Weight: 216 lb 4.375 oz Body Mass Index (BMI) 38.2 Intake and Output for Last 24 Hours 02/16/19 02/17/19 02/18/19 23:59 23:59 23:59 Intake Total 591.67 / 591.67 Balance 591.67 / 591.67 Laboratory Results 02/18/19 14:05: WBC 14.0 H, RBC 4.90, Hgb 13.1, Hct 41.1, MCV 83.9, MCH 26.7 L, MCHC 31.9 L, RDW Std Deviation 42.6, RDW Coeff of Zahra 14.0, Plt Count 345, MPV 9.9, Immature Gran % (Auto) 0.400, Neut % (Auto) 83.5 H, Lymph % (Auto) 7.7 L, [place] % (Auto) 7.2, Eos % (Auto) 0.8, Baso % (Auto) 0.4, Absolute Neuts (auto) 11.7 H, Absolute Lymphs (auto) 1.08, Nucleated RBC % 0 02/18/19 14:05: Sodium 140, Potassium 4.1, Chloride 107, Carbon Dioxide 28.0, Anion Gap 5, BUN 14, Creatinine 1.07 H, Estim Creat Clear Calc 43.36, Est GFR (MDRD) Af Amer 66, Est GFR (MDRD) Non-Af 55 L, BUN/Creatinine Ratio 13.1, Glucose 102, Calcium 9.1 02/18/19 14:50: Urine Color Yellow, Urine Clarity Sl. Cloudy, Urine pH 5.0, Ur Specific [place] 1.020, Urine Protein 30 H, Urine Glucose (UA) Normal, Urine Ketones 5 H, Urine Occult Blood 150 H, Urine Nitrite Negative, Urine Bilirubin Negative, Urine Urobilinogen Normal, Ur Leukocyte Esterase 25 H, Urine RBC 10-25 SEEN, Urine WBC 0-5 SEEN, Ur Squamous Epith Cells 5-10 SEEN, Urine Bacteria 0 SEEN, Urine Mucus 0 SEEN Current Medications Sodium Chloride () 1,000 mls @ 250 mls/hr IV .Q4H AMANDA Last Infusion: 02/18/19 16:15 Dose: 999 mls/hr Documented by: Assessment/Plan All Active Problems (Last Reviewed 04/01/17 @ 09:36 by Tere Lynch) Hydronephrosis with renal calculous obstruction (Acute) Elevated BP without diagnosis of hypertension (Acute) Sinusitis, acute (Acute) The patient is a 63 y/o F w/ PMHx: GERD, Obesity, Hx Nephrolithiasis, Hx Elevated BP without HTN Dx being monitored by her PCP who presents to the [facility] ED on 02/18/19 with onset L flank pain worsening since evening prior, described as throbbing and dull aching, ongoing. 1. Acute Flank Pain, secondary to Acute L Ureteral Obstructive Nephrolithiasis w/ L sided hydronephrosis, hydroureter, perinephric and periureteral inflammatory stranding: Will admit to [facility], maintain on aggressive hydration, defer antibiotic therapy initially given unremarkable UA although notable inflammation on CT abdomen pelvis felt likely secondary to severity of structure and, if onset fever quick plan to initiate antibiotic therapy, maintain NPO for intervention in a.m., place on Famotidine, PRN IV and oral antibiotic therapy, continue scheduled Toradol x5 doses, PRN anti-emetics, monitor I&Os. Urology consulted and aware with planned evaluation once returns to [place], 02/19/18 with planned OR. 2. Elevated BP without hypertensive diagnosis: Per discussions has been having outpatient monitoring of her blood pressure per primary care physician, given acute presentation expected elevation, will continue to closely monitor and once pain control improved if remains elevated would initiate oral antihypertensive therapy, in interim IV PRN hydralazine. 3. Obesity: Weight loss and lifestyle changes encouraged. 4. GERD: Maintained on famotidine. 5. Former tobacco use: Encouraged continued tobacco cessation. 6. DVT prophylaxis: SCDs, defer chemoprophylaxis given planned operative intervention. Code Visit Inpatient E&M: 59993 Init Hosp L3
[2019-02-18 17:05] VITALS: BP 180/52; PULSE 71; RESP 14; O2SAT 98
[2019-02-18 17:19] VITALS: BMI 38.3
[2019-02-18 18:59] VITALS: BMI 38.5
[2019-02-18] MEDS: 0.9% Normal Saline 1,000 ML 150 ML IV (19:34)
[2019-02-18 21:06] VITALS: BP 145/90; PULSE 80; RESP 18; TEMP 36.8; O2SAT 97
[2019-02-18 23:42] VITALS: O2SAT 96
[2019-02-19] VITALS (9 sets, daily range): BP systolic 145–166; BP diastolic 75–99; PULSE 72–90; RESP 12–16; TEMP 36.5–36.8; O2SAT 93–97; BMI 38.5; BMI 38.3
[2019-02-19] MEDS: 0.9% Normal Saline 1,000 ML 150 ML IV ×2 (02:03→08:45)
[2019-02-19] MEDS: Ketorolac 30 MG/ML Syringe IV ×2 (05:52→14:08)
[2019-02-19 06:00] LABS: Absolute Lymphocyte Count 1.94 X10^3/uL (0.83-4.51); Absolute Neutrophil Count 5.8 X10^3/uL (2.0-7.7); Basophil# 0.06 X10^3/uL; Basophil% 0.7 % (0-1); Eosinophil# 0.34 X10^3/uL; Eosinophils% 3.8 % (0-5); Hematocrit 37.2 % (37-47); Hemoglobin 11.6 g/dL (12.0-15.0); Lymphocyte # 1.94 X10^3/ul (4.0); Lymphocyte % 21.7 % (19-41); Mean Corp Hgb Conc 31.2 g/dL (32-36); Mean Corpuscular Hgb 26.1 pg (27.0-32.0); Mean Corpuscular Volume 83.8 fL (81-99); Mean Platelet Vol. 9.8 fl (6.2-12.0); Monocyte# 0.78 X10^3/uL; Monocyte% 8.7 % (0-10); NRBC Flagged by Analyzer 0 % (0-5); Neutrophil # 5.79 X10^3/uL (2.7-7.7); Neutrophil % 64.9 % (47-70); Platelet Count 250 K/mm3 (150-450); RBC Distribution Width CV 14.2 % (11.6-14.6); RBC Distribution Width SD 43.3 fl (35.1-43.9); Red Blood Count 4.44 M/mm3 (4.2-5.4); White Blood Count 8.9 K/mm3 (4.4-11.0)
[2019-02-19 06:31] LABS: Anion Gap 4 (5-15); BUN 14 mg/dL (7-18); BUN/Creat Ratio 12.3 RATIO (10-20); Calcium,Total 8.2 mg/dL (8.5-10.1); Chloride 113 mmol/L (98-107); Creatinine, Serum 1.14 mg/dL (0.55-1.02); EST Glomerular Filtration Rate 51 mL/min (>60); Est Glom Filt Rate - Afr Amer 61 mL/min (>60); Glucose 94 mg/dL (74-106); Potassium 4.1 mmol/L (3.5-5.1); Sodium Level 143 mmol/L (136-145)
--- NOTE | 2019-02-19 07:32 | EKG12_ITS ---
Test Reason : PRE OP Blood Pressure : / mmHG Vent. Rate : 070 BPM Atrial Rate : 070 BPM P-R Int : 144 ms QRS Dur : 074 ms QT Int : 398 ms P-R-T Axes : 063 006 -15 degrees QTc Int : 429 ms Normal sinus rhythm Nonspecific ST abnormality Abnormal ECG When compared with ECG of 11-JAN-2019 10:46, Premature atrial complexes are no longer Present Nonspecific T wave abnormality no longer evident in Lateral leads Confirmed by TIMOTHY BLAS, TANGELA ([id number]), manuscript editor CAROL OCONNOR ([id number]) on 02/25/2019 9:21:59 AM Referred By: Eula Rodriguez Confirmed By:TANGELA AGUIRRE MD
[2019-02-19 08:14] LABS: Prothrombin Time (Protime)PT. 12.8 SECONDS (11.7-14.9)
[2019-02-19 08:15] LABS: Partial Thromboplast Time 30.9 Seconds (24.1-36.2)
[2019-02-19] MEDS: HYDROcodone Bitartrate/Apap 5/325 Tablet PO (08:51)
--- NOTE | 2019-02-19 08:53 | CON.PCM_ITS ---
Problem List (1) Kidney stones Status: Chronic Reason for Consult Date of Consultation: 02/19/19 Reason for Consultation: Left kidney stone History of Present Illness: The patient is a 63 year old female with a history of recurrent kidney stones presents to the hospital with a 9 mm stone which measures 900 Hounsfield units impacted at the left mid ureter causing severe left hydronephrosis she was admitted for pain control plan today is taken to surgery and place a stent on the left side. Past Medical History Past Medical History (Chronic Problems): Chronic Problems (Last Reviewed 04/01/17 @ 09:36 by Tere Lynch) History of gastroesophageal reflux (GERD) (Chronic) Kidney stones (Chronic) GERD (gastroesophageal reflux disease) (Chronic) Obesity (BMI 30-39.9) (Chronic) Medical History: Medical History (Last Reviewed 04/01/17 @ 09:36 by Tere Lynch) History of hysterectomy Z98.890, Z90.710 Allergies Sulfa (Sulfonamide Antibiotics) Allergy (Verified 02/18/19 13:01) Itching Home Medications: Ambulatory Orders Medication Instructions Recorded NK 01/11/19 Surgical History: noncontributory, - - Bilateral tubal ligation, hysterectomy, prior nephrolithiasis left-sided intervention. 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 Denies: Nausea, Vomiting Genitourinary: Reports: - - Recurrent kidney stones. Denies: Dysuria Musculoskeletal: Denies: Joint Pain, Joint Tenderness Skin: Denies: Rash, Wounds Neurological: Denies: Numbness, Tingling, Focal weakness Psychiatric: Denies: Anxiety, Depression, Homicidal Ideations, Suicidal Ideations Hematologic/ Lymphatic: Denies: Easy Bruising, Easy Bleeding Physical Exam - Physical Exam Vital Signs Temp 98.2 F 02/19/19 08:49 Pulse 72 02/19/19 08:49 Resp 16 02/19/19 08:49 BP 161/89 H 02/19/19 08:49 Pulse Ox 94 02/19/19 08:49 Intake & Output 02/17/19 02/18/19 02/19/19 23:59 23:59 23:59 Intake Total 2150.00 / 2150.00 1954 Balance 2149.00 / 2150.00 1954 Weight: 98.6 kg 98.6 kg Intake: Oral 1150 / 1150 0 / 0 Intake, IV Amount 1000.00 / 1000.00 1954 0.9% Normal Saline 1,000 ML @ 1954 150 mls/hr IV .Q6H40M AMANDA Rx#: [id number] 0.9% Normal Saline 1,000 ML @ 1000.00 / 1000.00 250 mls/hr IV .Q4H AMANDA Rx#: [id number] Other: Number of Voids 2 2 General: Alert, Oriented x3 HEENT: Atraumatic Oral: Moist Mucosa Neck: Supple Lungs: Normal air movement Cardiovascular: Regular rate Abdomen: Soft, Obese Rectal: Exam deferred Musculoskeletal: No Tenderness to Palpation of Joints or Extremities Neurological: Cranial nerves II-XII grossly intact Psych/Mental Status: Normal Affect, Appropriate Laboratory Tests Past 24 Hrs 02/18/19 02/18/19 02/18/19 14:05 14:05 14:50 WBC 14.0 H RBC 4.90 Hgb 13.1 Hct 41.1 MCV 83.9 MCH 26.7 L MCHC 31.9 L RDW Std Deviation 42.6 RDW Coeff of Zahra 14.0 Plt Count 345 MPV 9.9 Immature Gran % (Auto) 0.400 Neut % (Auto) 83.5 H Lymph % (Auto) 7.7 L Leslie % (Auto) 7.2 Eos % (Auto) 0.8 Baso % (Auto) 0.4 Absolute Neuts (auto) 11.7 H Absolute Lymphs (auto) 1.08 Nucleated RBC % 0 PT INR APTT Sodium 140 Potassium 4.1 Chloride 107 Carbon Dioxide 28.0 Anion Gap 5 BUN 14 Creatinine 1.07 H Estim Creat Clear Calc 43.36 Est GFR (MDRD) Af Amer 66 Est GFR (MDRD) Non-Af 55 L BUN/Creatinine Ratio 13.1 Glucose 102 Calcium 9.1 Urine Color Yellow Urine Clarity Sl. Cloudy Urine pH 5.0 Ur Specific [place] 1.020 Urine Protein 30 H Urine Glucose (UA) Normal Urine Ketones 5 H Urine Occult Blood 150 H Urine Nitrite Negative Urine Bilirubin Negative Urine Urobilinogen Normal Ur Leukocyte Esterase 25 H Urine RBC 10-25 SEEN Urine WBC 0-5 SEEN Ur Squamous Epith Cells 5-10 SEEN Urine Bacteria 0 SEEN Urine Mucus 0 SEEN 02/19/19 02/19/19 02/19/19 05:45 05:45 07:50 WBC 8.9 RBC 4.44 Hgb 11.6 L Hct 37.2 MCV 83.8 MCH 26.1 L MCHC 31.2 L RDW Std Deviation 43.3 RDW Coeff of Zahra 14.2 Plt Count 250 MPV 9.8 Immature Gran % (Auto) 0.200 Neut % (Auto) 64.9 Lymph % (Auto) 21.7 Leslie % (Auto) 8.7 Eos % (Auto) 3.8 Baso % (Auto) 0.7 Absolute Neuts (auto) 5.8 Absolute Lymphs (auto) 1.94 Nucleated RBC % 0 PT 12.8 INR 1.0 APTT 30.9 Sodium 143 Potassium 4.1 Chloride 113 H Carbon Dioxide 26.0 Anion Gap 4 L BUN 14 Creatinine 1.14 H Estim Creat Clear Calc 40.70 Est GFR (MDRD) Af Amer 61 Est GFR (MDRD) Non-Af 51 L BUN/Creatinine Ratio 12.3 Glucose 94 Calcium 8.2 L Urine Color Urine Clarity Urine pH Ur Specific [place] Urine Protein Urine Glucose (UA) Urine Ketones Urine Occult Blood Urine Nitrite Urine Bilirubin Urine Urobilinogen Ur Leukocyte Esterase Urine RBC Urine WBC Ur Squamous Epith Cells Urine Bacteria Urine Mucus Assessment/Plan All Active Problems (Last Reviewed 04/01/17 @ 09:36 by Tere Lynch) Hydronephrosis with renal calculous obstruction (Acute) Elevated BP without diagnosis of hypertension (Acute) Sinusitis, acute (Acute) 63-year-old female with a 9 mm stone in the proximal mid ureter on the left side 900 Hounsfield units plan for cystoscopy left retrograde pyelogram and stent placement today should be n.p.o.
--- NOTE | 2019-02-19 12:05 | NURSING ---
Called report to Janis in PACU
[2019-02-19] MEDS: Lactated Ringers 1,000 ML 100 ML IV (12:22)
[2019-02-19] MEDS: Cefazolin 1 GM/50 ML BAG IV (12:40)
--- NOTE | 2019-02-19 12:46 | DCINST_ITS ---
Discharge Diet: Light diet - advance as tolerated Discharge Activity: Return to Normal Activity Call your doctor if you observe: Fever of 101 or Higher Instructions: Ureteral Stents Allergies/Adverse Reactions: Allergies Sulfa (Sulfonamide Antibiotics) Allergy (Verified 02/18/19 13:01) Itching Medications to take at Discharge NK 01/11/19 Primary Care Physician: Bowen Barnes MD [Primary Care Provider] - Test Results: Test results from this visit will be discussed in further detail at your follow- up appointment, if applicable. Please Follow Up With: Garfield Mora MD When: please call the office to get set up for lithotripsy
[2019-02-19] MEDS: Lidocaine Jelly 2% 20 ML Syringe (URO-JET) 20 APPLIC (12:57)
--- NOTE | 2019-02-19 13:10 | OP.PCM_ITS ---
Problem List (1) Kidney stones Status: Chronic Report of Operation Date of Procedure: 02/19/19 Pre-Operative Diagnosis: Left ureteral calculi with obstruction Post-Operative Diagnosis: Same Surgery/Procedure Performed:: Cystoscopy, left retrograde pyelogram, interpretation fluoroscopic images, left stent placement. Description of Surgical Findings:: 63-year-old female with a history of kidney stones presents to the hospital with obstructing stone in the proximal left ureter today were taken to surgery for cystoscopy left stent placement to relieve the obstruction and then will set her up for lithotripsy. 63-year-old female taken back to the operating room with us with induction of general anesthesia she was placed in dorsolithotomy position the urethra vaginal area prepped and draped in usual sterile fashion lidocaine jelly was instilled into the urethra. I then went into the bladder with a 21 Macedonian rigid cystourethroscope the entire length of the urethra was normal the bladder was normal, the left and right ureteral orifice was normal, the delgado of the bladder are nice and smooth normal bladder no tumors or stones seen within the bladder, I then cannulated the left ureteral orifice with a Glidewire and a Pollack catheter advanced the Pollack back catheter up to the stone injected contrast to the retrograde pyelogram and after the pyelogram was performed that I can see the location of the kidney that the hydronephrosis behind the stone plans a wire passed the stone and then over the wire place a stent it was a 6 Macedonian by 26 cm stent once a stent was in good position I pulled the wire stent coiled in the kidney and coiled in the bladder good position and I drained the bladder the patient's anesthetic was reversed taken back to PACU good condition she will be discharged in the hospital and then my office will set her up for outpatient lithotripsy next available date. Type of Anesthesia:: General Drains: stent left side 6fr x 26 cm - Admit VTE Documentation VTE Present on Admission: No VTE Mechan Device Prophylaxis: SCD's
--- NOTE | 2019-02-19 15:49 | DCINST_ITS ---
- Discharge Diagnoses Current Active Problems: Current Active and Chronic Problems (Last Reviewed 04/01/17 @ 09:36 by Tere Lynch) Kidney stones (Chronic) Hydronephrosis with renal calculous obstruction (Acute) Elevated BP without diagnosis of hypertension (Acute) GERD (gastroesophageal reflux disease) (Chronic) Obesity (BMI 30-39.9) (Chronic) You will use the following diet at home:: No restrictions Your food should be the consistency of: Regular Your liquids should be the consistency of: Regular/Thin Discharge Activity: Return to Normal Activity Weight Bearing Status: Full weight bearing Call your doctor if you observe: Fever of 101 or Higher Instructions: Ureteral Stents Allergies/Adverse Reactions: Allergies Sulfa (Sulfonamide Antibiotics) Allergy (Verified 02/18/19 13:01) Itching Medications to take at Discharge Cephalexin [Keflex] 500 mg PO TID #21 cap 02/19/19 Hydrocodone Bitart/Apap 5-325 [[place] 5/325] 1 - 2 tab PO Q6H PRN PRN 7 Days #15 tab 02/19/19 Ondansetron [Zofran] 8 mg PO Q6H PRN PRN #10 tab 02/19/19 The following prescriptions were given: Cephalexin [Keflex] 500 mg PO TID #21 cap Transmission Status: Sent to [facility] #30 Hydrocodone Bitart/Apap 5-325 [[place] 5/325] 1 - 2 tab PO Q6H PRN PRN 7 Days #15 tab PRN Reason: Pain Score 4-10/10 Prescription Printed Ondansetron [Zofran] 8 mg PO Q6H PRN PRN #10 tab PRN Reason: Nausea Transmission Status: Sent to [facility] #[facility] Primary Care Physician: Bowen Barnes MD [Primary Care Provider] - Test Results: Test results from this visit will be discussed in further detail at your follow- up appointment, if applicable. Please Follow Up With: Garfield Mora MD When: please call the office to get set up for lithotripsy
--- NOTE | 2019-02-21 07:59 | PCM.DC.SUM ---
Discharge Date and Diagnosis Date of Admission: 02/18/19 Date of Discharge: 02/19/19 - Primary Discharge Diagnosis #1 left ureteral calculus with obstruction of the ureter #2 left kidney stones - Secondary Discharge Diagnosis Chronic Problems (Last Reviewed 04/01/17 @ 09:36 by Tere Lynch) History of gastroesophageal reflux (GERD) (Chronic) Kidney stones (Chronic) GERD (gastroesophageal reflux disease) (Chronic) Obesity (BMI 30-39.9) (Chronic) Hospital Course and Treatment Operations: None Procedures: - - Cystoscopy with left retrograde pyelogram and left ureteral stent placement Summary of Care Provided: The patient is a 63 year old F who was seen in the emergency room at [facility] with a chief complaint of left flank pain. Patient had a history of kidney stones in the past. Work-up in the emergency room included a CT of the abdomen and pelvis which showed a 9 mm stone of the proximal left ureter causing hydronephrosis, hydroureter, perinephric, and periureteral inflammatory stranding. There was noted to be also nonobstructing left nephrolithiasis. Labs were remarkable for a white blood cell count of 14, creatinine was 1.07, and urinalysis showed 10-25 RBCs, 0-5 WBCs and 0 bacteria. Patient was admitted to PCU, given IV fluids and analgesics, she was seen in consultation by urology, on 02/19/2019, patient went to surgery and had a stent placed in the left ureter. Patient was seen and examined on 02/19/2019: On examination she appeared in good health and spirits. Vital signs as documented. Skin warm and dry and without overt rashes. Neck without JVD. Lungs clear. Heart exam notable for regular rhythm, normal sounds and absence of murmurs, rubs or gallops. Abdomen unremarkable and without evidence of organomegaly, masses, or abdominal aortic enlargement. Extremities nonedematous. Neuro: Cranial nerves II through XII are grossly intact, no focal motor deficits were noted, sensation to light touch and pinprick is intact. Psych: Patient is alert and oriented x3, she does not appear anxious or depressed On 02/19/2019, patient appeared medically stable and requested discharge to home. Patient was discharged with instructions to follow-up with urology. - Physical Exam Vitals/I&O's: Vital Signs Temp Pulse Resp BP Pulse Ox 97.7 F L 80 14 158/85 H 94 02/19/19 13:55 02/19/19 13:55 02/19/19 13:55 02/19/19 13:55 02/19/19 13:55 Oxygen Delivery Method Room Air Weight: 98.6 kg Body Mass Index (BMI) 38.5 Intake and Output for Last 24 Hours 02/19/19 02/20/19 02/21/19 23:59 23:59 23:59 Intake Total 3203.34 / 3203.34 Balance 3203.34 / 3203.34 Discharge Diet: Light diet - advance as tolerated Discharge Activity: Return to Normal Activity Weight Bearing Status: Full weight bearing Call your doctor if you observe: Fever of 101 or Higher Home Medications: Medications to take at Discharge Cephalexin [Keflex] 500 mg PO TID #21 cap 02/19/19 Hydrocodone Bitart/Apap 5-325 [[place] 5/325] 1 - 2 tab PO Q6H PRN PRN 7 Days #15 tab 02/19/19 Ondansetron [Zofran] 8 mg PO Q6H PRN PRN #10 tab 02/19/19 Following Prescrptions Were Given to Patient: Cephalexin [Keflex] 500 mg PO TID #21 cap Transmission Status: Received by [facility] #30 Hydrocodone Bitart/Apap 5-325 [[place] 5/325] 1 - 2 tab PO Q6H PRN PRN 7 Days #15 tab PRN Reason: Pain Score 4-10/10 Prescription Printed Ondansetron [Zofran] 8 mg PO Q6H PRN PRN #10 tab PRN Reason: Nausea Transmission Status: Received by [facility] #30 Primary Care Physician: Bowen Barnes MD [Primary Care Provider] - Please Follow Up With: Garfield Mora MD When: please call the office to get set up for lithotripsy Patient Instructions: Ureteral Stents Minutes spent on discharge:: 32 Patient Condition:: Stable Medical Necessity - Tobacco Use Smoking Status: Former smoker Tobacco Use: Non-smoker Meaningful Use Info Meaningful Use Diagnoses (Choose all that apply): None applicable Code Visit Inpatient E&M: 60130 Disch Hosp
== END 2019-02-19 16:14 | disposition home or self-care (01) | DRG 661 ==
LOC: ED 16:29 → PCU 17:19
PROVIDERS: Anesthesiology; Urology; Admitting Provider Family Medicine; Emergency Provider Emergency Medicine; Family Provider Family Medicine; PCP Family Medicine; Referring Provider Family Medicine; Visit Provider Internal Medicine
PROC: 0T778DZ Dilation of Left Ureter with Intraluminal Device, Via Natural or Artificial Opening Endoscopic (ICD-10-PCS; CPT 52332; principal; 2019-02-19 11:30)
DX: N13.2 Hydronephrosis with renal and ureteral calculous obstruction (principal); E66.9 Obesity, unspecified; Z87.891 Personal history of nicotine dependence; Z87.442 Personal history of urinary calculi; Z68.38 Body mass index [BMI] 38.0-38.9, adult; K21.9 Gastro-esophageal reflux disease without esophagitis
CPT/HCPCS: 36415; 74176; 76000; 80048; 81001; 85025; 85610; 85730; 93005; 99251; 99285; J7030; J7120; A4216; C1769; C2617; G0463; J2405

== ENCOUNTER 2019-02-28 11:10 | Day surgery (SDC) | payer MEDICARE, SELFPAY ==
[2019-02-19 07:34] VITALS: BMI 38.5
--- NOTE | 2019-02-28 11:15 | RAD_ITS ---
STUDY: X-RAY - ABDOMEN/PELVIS REASON FOR EXAM: Female, 63 years old. Left sided kidney stone TECHNIQUE: Single AP view of the abdomen / pelvis. COMPARISON: Comparison is made with prior study dated September 29, 2013. FINDINGS: Normal visualized lung bases. There is an unremarkable bowel gas pattern. A left-sided double-J stent catheter is seen. 2 calculi are seen in the proximal left ureter overlying the transverse processes of the L2 vertebrae on the left side. Normal soft tissue structures. Normal visualized osseous structures. RAD/Abdomen Single View IMPRESSION: Left-sided double-J stent catheter. 2. Calculi are seen in the proximal portion of left ureter. The larger measuring 7.5 mm. Electronically Signed: Elmer Fox, at 12:05 EST , Service support ,
[2019-02-28 12:10] VITALS: BP 177/105; PULSE 82; RESP 16; TEMP 36.5; O2SAT 96; BMI 37.8
[2019-02-28] MEDS: Lactated Ringers 1,000 ML 100 ML IV (12:15)
[2019-02-28] MEDS: Cefazolin 2 GM in 0.9% Normal Saline 100 ML IV (13:00)
--- NOTE | 2019-02-28 13:26 | PCM.DC.URO ---
Discharge Diet: Light diet - advance as tolerated Discharge Activity: Return to Normal Activity Instructions: Shock Wave Lithotripsy Allergies/Adverse Reactions: Allergies Sulfa (Sulfonamide Antibiotics) Allergy (Verified 02/28/19 12:07) Itching Medications to take at Discharge Cephalexin [Keflex] 500 mg PO TID #21 cap 02/19/19 Hydrocodone Bitart/Apap 5-325 [[place] 5MG-325MG] 1 tab PO Q6H PRN PRN 02/26/19 Ciprofloxacin [Cipro] 500 mg PO BID #6 tab 02/28/19 Hydrocodone/Acetaminophen [[place] 5-325 Tablet] 1 each PO Q4H PRN PRN 5 Days #14 tablet 02/28/19 The following prescriptions were given: Ciprofloxacin [Cipro] 500 mg PO BID #6 tab Transmission Status: Pending to [facility] Hydrocodone/Acetaminophen [[place] 5-325 Tablet] 1 each PO Q4H PRN PRN 5 Days #14 tablet PRN Reason: Pain Score 1-10/10 Transmission Status: Sent to [facility] Primary Care Physician: Bowen Barnes MD [Primary Care Provider] - Test Results: Test results from this visit will be discussed in further detail at your follow-up appointment, if applicable. Please Follow Up With: Garfield Mora MD When: please call to make an appointment.
--- NOTE | 2019-02-28 14:01 | PCM.OPRPT ---
Report of Operation Date of Procedure: 02/28/19 Pre-Operative Diagnosis: Left ureteral calculus in the left UPJ junction status post stent Post-Operative Diagnosis: Same Surgery/Procedure Performed:: Left extracorporeal shockwave lithotripsy Description of Surgical Findings:: 63-year-old female presented with obstructing stones in the proximal left ureter she underwent a cystoscopy and stent placement she now presents to the hospital for elective outpatient treatment of the stones with shockwave lithotripsy she has stones blocking her kidney in the left UPJ area she also some stones the lower pole the left kidney today we will treat the obstructing stones in the ureter. 63-year-old female taken back to the operating room after smooth induction of anesthesia she was placed supine on the table we localized the stones in the proximal ureter she had multiple fragments along the course of the ureter and we started with shockwave lithotripsy working her way up from a power of 5 kV to 9 kV and we worked at a rate of 90 shocks per minute. As we started treating the stones we worked our way along the ureter from the distal to the proximal ureter as stones broke they dissipated and broke up really nicely. We monitor the fraction of the stones during the treatment we did the full treatment of 4000 shockwaves which was her limit of treatment and the stones in the proximal ureter and broken up really nicely was not safe to continue to do the treatment in the lower pole the kidney because as we reached her maximum treatment recommended and therefore we stopped appeared to break up satisfactorily plan is to remove the stent in about 10 days. Patient's anesthetic was reversed taken back to PACU in addition plan to see her about 10 days with an x-ray and will remove the stent at that point. Type of Anesthesia:: General Drains: stent in place - Admit VTE Documentation VTE Present on Admission: No VTE Mechan Device Prophylaxis: SCD's
[2019-02-28 14:07] VITALS: BP 162/99; BP 177/99; PULSE 87; RESP 16; TEMP 36.1; O2SAT 100
[2019-02-28 14:15] VITALS: BP 153/80; BP 177/99; PULSE 77; RESP 18; O2SAT 95
[2019-02-28 14:30] VITALS: BP 165/96; BP 177/99; PULSE 82; RESP 16; O2SAT 100
[2019-02-28 14:48] VITALS: BP 169/92; BP 177/99; PULSE 78; RESP 16; TEMP 36.8; O2SAT 98
[2019-02-28 15:19] VITALS: BP 162/89; BP 177/99; PULSE 82; RESP 16; O2SAT 16
--- NOTE | 2019-03-07 08:03 | HP.PCM_ITS ---
History of Present Illness Date of Admission: 02/28/19 Chief Complaint: Left kidney stone The patient is a 63 year old female who presents for treatment of her left kidney stone Past Medical History Past Medical History (Chronic Problems): Chronic Problems (Last Reviewed 04/01/17 @ 09:36 by Tere Lynch) History of gastroesophageal reflux (GERD) (Chronic) Kidney stones (Chronic) GERD (gastroesophageal reflux disease) (Chronic) Obesity (BMI 30-39.9) (Chronic) Allergies Sulfa (Sulfonamide Antibiotics) Allergy (Verified 02/28/19 12:07) Itching Home Medications: Ambulatory Orders Medication Instructions Recorded Cephalexin [Keflex] 500 mg PO TID #21 cap 02/19/19 Hydrocodone Bitart/Apap 5-325 1 tab PO Q6H PRN PRN 02/26/19 [[place] 5MG-325MG] Ciprofloxacin [Cipro] 500 mg PO BID #6 tab 02/28/19 Surgical History: Surgical History (Last Updated 04/01/17 @ 09:37 by Tere Lynch) History of hysterectomy Z98.890, Z90.710 Surgical History: noncontributory, - - Bilateral tubal ligation, hysterectomy, prior nephrolithiasis left-sided intervention. 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 MARINA history Smoking Status: Former smoker Tobacco Use: Non-smoker - *Family History Maternal History Items: Hypertension Paternal History Items: Diabetes, Hypertension VTE Information - Inpt Only VTE Present on Admission: No - Physical Exam Vitals/I&O's: Vital Signs Temp Pulse Resp BP Pulse Ox 98.2 F 82 16 162/89 H 16 02/28/19 14:48 02/28/19 15:19 02/28/19 15:19 02/28/19 15:19 02/28/19 15:19 Oxygen Delivery Method Room Air Weight: 96.9 kg Body Mass Index (BMI) 37.8 General: Alert, Oriented x3, Cooperative HEENT: Atraumatic, PERRLA, EOMI, Normocephalic Neck: Supple, No JVD, Negative Carotid Bruits Lungs: Clear to auscultation, Normal air movement Cardiovascular: Regular rate, No murmurs Abdomen: Bowel Sounds Present, Soft, Non Tender Extremities: No edema, Capillary Refill Less than 3 Seconds Skin: No rashes, No breakdown Musculoskeletal: No Tenderness to Palpation of Joints or Extremities Neurological: Cranial nerves II-XII grossly intact Psych/Mental Status: Normal Affect, Appropriate Assessment/Plan All Active Problems (Last Reviewed 04/01/17 @ 09:36 by Tere Lynch) Hydronephrosis with renal calculous obstruction (Acute) Elevated BP without diagnosis of hypertension (Acute) Sinusitis, acute (Acute) Female presents to the hospital for treatment of kidney stone.
== END 2019-02-28 15:41 | disposition home or self-care (01) ==
LOC: SDC 11:10 → AC 11:30
PROVIDERS: Family Provider Family Medicine; PCP Family Medicine; Referring Provider Urology; Visit Provider Urology
PROC: (CPT 50590; principal; 2019-02-28 12:55)
DX: N13.2 Hydronephrosis with renal and ureteral calculous obstruction (principal); K21.9 Gastro-esophageal reflux disease without esophagitis; E66.9 Obesity, unspecified; J01.90 Acute sinusitis, unspecified; R03.0 Elevated blood-pressure reading, without diagnosis of hypertension; Z87.891 Personal history of nicotine dependence; Z68.37 Body mass index [BMI] 37.0-37.9, adult; Z79.899 Other long term (current) drug therapy
CPT/HCPCS: 00873; 50590; 74018; J7120; J2405

== ENCOUNTER → 2019-03-11 12:41 | Outpatient (CLI) | payer MEDICARE, SELFPAY ==
[2019-02-28 12:10] VITALS: BMI 37.8
--- NOTE | 2019-03-11 13:40 | RAD_ITS ---
HISTORY: KIDNEY STONE. BACK ACHE. STENT SUPPOSED TO BE TAKEN OUT TODAY PER PT. ADDITIONAL HISTORY: None. COMPARISON: 02/28/2019 Technique: Supine abdominal radiographs Number of images including paperwork: 2 FINDINGS: FREE AIR: None detected. BOWEL GAS PATTERN: Nonobstructive. CALCIFICATIONS: Calculi are seen in the left proximal ureter along the left ureteral stent. Left lower pole renal calculi are faintly visualized, evaluation of the kidneys somewhat limited due to overlying colonic gas and stool. ORGANS: No evidence of organomegaly. SOFT TISSUES: Unremarkable. BONES: No acute skeletal findings. RAD/Abdomen Single View IMPRESSION: Left proximal ureteral calculi and left renal calculi. Left ureteral stent in place. at 0411 Reported and signed by: Zina Lezama MD Electronically Signed: Zina eLzama MD at 4:11 EST Tel , Service support ,
== END ==
PROVIDERS: PCP Family Medicine; Referring Provider Urology; Visit Provider Urology
DX: N20.0 Calculus of kidney (principal)
CPT/HCPCS: 74018

== ENCOUNTER 2019-03-19 12:39 | Day surgery (SDC) | payer MEDICARE, SELFPAY ==
[2019-03-19 13:06] VITALS: BP 181/92; PULSE 82; RESP 16; TEMP 36.4; O2SAT 95; BMI 36.6
[2019-03-19] MEDS: Lactated Ringers 1,000 ML 100 ML IV (13:22)
[2019-03-19] MEDS: Cefazolin 2 GM in 0.9% Normal Saline 100 ML IV (14:39)
--- NOTE | 2019-03-19 15:29 | DCINST_ITS ---
Discharge Diet: Light diet - advance as tolerated Discharge Activity: Return to Normal Activity, May not drive while taking narcotic pain medications. Call your doctor if your incision/area has: Sudden Increased Bleeding, Increased Pain/ Swelling, Foul Smelling Discharge Call your doctor if you observe: Fever of 101 or Higher Suture Line Care: Avoid Pulling/Pushing, Avoid Pinching/Bending Allergies/Adverse Reactions: Allergies Sulfa (Sulfonamide Antibiotics) Allergy (Verified 03/19/19 13:05) Itching Medications to take at Discharge Hydrocodone Bitart/Apap 5-325 [[place] 5MG-325MG] 1 tab PO Q6H PRN PRN 02/26/19 Ciprofloxacin [Cipro] 500 mg PO BID #6 tab 03/19/19 Hydrocodone/Acetaminophen [[place] 5-325 Tablet] 1 each PO Q4H PRN PRN 7 Days #14 tablet 03/19/19 The following prescriptions were given: Ciprofloxacin [Cipro] 500 mg PO BID #6 tab Transmission Status: Pending to [facility] Hydrocodone/Acetaminophen [[place] 5-325 Tablet] 1 each PO Q4H PRN PRN 7 Days #14 tablet PRN Reason: Pain Score 1-10/10 Transmission Status: Sent to [facility] Primary Care Physician: Bowen Barnes MD [Primary Care Provider] - Test Results: Test results from this visit will be discussed in further detail at your follow- up appointment, if applicable. Please Follow Up With: Garfield Mora MD When: please call to make an appointment.
--- NOTE | 2019-03-19 15:31 | OP.PCM_ITS ---
Report of Operation Date of Procedure: 03/19/19 Pre-Operative Diagnosis: Left ureteral stone status post ESWL and stent second stage procedure Post-Operative Diagnosis: Same Surgery/Procedure Performed:: Cystoscopy, left ureteroscopy laser lithotripsy of stones and stent placement Description of Surgical Findings:: 63-year-old female who underwent a stent placement and shockwave lithotripsy for obstructing stone in the proximal left ureter the stone did break up fairly well however on x-ray she still has significant fragments in the proximal ureter she needed a second treatment to treat these fragments of low tiny stones to make sure they can pass at this point we just take out the stent she would have extreme pain from the fragments. Therefore I recommended we proceed with a second procedure working to go ahead with ureteroscopy and laser lithotripsy of the remaining fragments that did not break up all the way after shockwave lithotripsy. 63-year-old female taken back to the operating room at the smooth induction of general anesthesia she was placed in dorsolithotomy position. The urethra and vaginal area prepped and draped in usual sterile fashion. Went into the bladder with a through the urethra with a 21 Colombian rigid cystourethroscope. I grabbed the existing stent. Pulled out the meatus. Through the stent advance a Glidewire all the way up to the kidney. I try to advance the access sheath however I could feel some stone sitting the access sheath and therefore I backed out and decided not to use an access sheath. I used a dual-lumen catheter and place a safety wire and a working wire. I then went in over the working wire with the 8 Colombian flexible ureteroscope was able to get into the distal ureter quite easily. I then worked my way up the ureter and encountered the stones. I then used a 200 ?m laser fiber and perform laser lithotripsy of all the fragments are along the course of the ureter she had a ton of fragments along the course of the ureter these would have definitely caused a lot of problems. As a laser the stones one by one I worked my way up to the ureter and finally the entire ureter was clear of all the fragments I then trapped some more fragments of the upper pole of the kidney lasered these and little tiny pieces that should all pass on their own and then what worked my way down the ureter no other major fragments were seen no injury or trauma to the ureter itself some mi ld inflammation along the course of the ureter. Then I removed the ureteroscope over the safety wire and advanced a stent it was 6 Colombian by 26 cm stent but stent up into the kidney pulled the wire had to reposition the stent with a grasper and then the stent coiled in the kidney bladder good position drained the bladder and the plan is to see the patient next week to remove the stent in the office. All the stones in her left kidney were successfully lasered a little tiny pieces. Type of Anesthesia:: General Drains: stent left side. - Admit VTE Documentation VTE Present on Admission: No
[2019-03-19 15:38] VITALS: BP 139/71; BP 181/92; PULSE 94; RESP 16; TEMP 36.1; O2SAT 99
[2019-03-19 15:45] VITALS: BP 170/92; BP 181/92; PULSE 75; RESP 16; O2SAT 100
[2019-03-19] MEDS: Ketorolac 15 MG/ML Vial IM (15:58)
[2019-03-19 16:01] VITALS: BP 135/70; BP 181/92; PULSE 75; RESP 16; O2SAT 100
[2019-03-19 16:53] VITALS: BP 157/74; BP 181/92; PULSE 77; RESP 18; TEMP 36.4; O2SAT 95
== END 2019-03-19 16:57 | disposition home or self-care (01) ==
LOC: SDC 12:40 → AC 12:41
PROVIDERS: PCP Family Medicine; Referring Provider Urology; Visit Provider Urology
PROC: 0TJ98ZZ Inspection of Ureter, Via Natural or Artificial Opening Endoscopic (ICD-10-PCS; CPT 52352; principal; 2019-03-19 14:30)
DX: N13.2 Hydronephrosis with renal and ureteral calculous obstruction (principal); K21.9 Gastro-esophageal reflux disease without esophagitis; Z87.442 Personal history of urinary calculi; R03.0 Elevated blood-pressure reading, without diagnosis of hypertension; J01.90 Acute sinusitis, unspecified
CPT/HCPCS: 52356; 76000; J7120; C1758; C1769; C2617; J2405

== ENCOUNTER 2019-03-29 10:05 | Emergency (ER) | payer MEDICARE, SELFPAY ==
[2019-03-29 10:05] VITALS: BP 154/90; PULSE 98; RESP 16; TEMP 36.3; O2SAT 98; BMI 37.1
--- NOTE | 2019-03-29 10:19 | ED.VISSUMM ---
- ER Visit Summary Date of Service: 03/29/19 Chief Complaint: Left flank pain History of Present Illness: The patient is a 63 F presenting with left flank pain. This started yesterday. Patient has a history of kidney stones. She had a stent placed that was removed this past Sunday. She has had recent lithotripsy. She has been taking Toradol at home. She complains of severe pain to the left flank. She denies fever. Denies other complaints. Physical Examination: Vitals are stable. Patient is afebrile. Alert no acute distress. HEENT exam is unremarkable. Neck is supple. Lungs are clear and equal bilaterally. Heart is regular rate and rhythm. Abdomen is soft nontender nondistended. No rebound or guarding Back: Left CVA tenderness Extremities are unremarkable. Skin is warm and dry. No rash No focal neurologic deficit. Remainder of exam is unremarkable. Emergency Department Course and Treatment: Patient was given morphine, Zofran IV. CT flank shows left nephrolithiasis without hydronephrosis. Periureteral stranding may suggest recently passed calculus versus urinary tract infection. Hepatic steatosis. CBC, chemistries unremarkable. Urinalysis shows 0 white cells, 0-5 red blood cells. Patient continues to have pain and was given Dilaudid. On reevaluation she is feeling improved. Discussed with Dr. Mora. Patient will follow-up as an outpatient. She is given prescription for Percocet and Zofran. Advised return to ED for worsening complaints. Disposition: Discharge home Impression: Left flank pain, recently passed stone This note was generated with [employer] dictation software. It may contain incorrect words, spelling, and punctuation that were not noted in review of the chart prior to signing ED Disposition - Plan for ED Patient: Instructions: KIDNEY STONE, Passed Prescriptions: Oxycodone HCl/Acetaminophen [Percocet 5/325] 1 tab PO Q6H PRN PRN 3 Days #12 tab PRN Reason: Pain Prescription Printed Ondansetron [Zofran Odt] 4 mg PO Q8H PRN PRN #10 tab PRN Reason: Nausea Prescription Printed Referrals: Garfield Mora MD [STAFF PHYSICIAN] - Bowen Barnes MD [Primary Care Provider] -
--- NOTE | 2019-03-29 10:20 | CT_ITS ---
STUDY: CT ABDOMEN AND PELVIS WITHOUT CONTRAST REASON FOR EXAM: Female, 63 years old. RT FLANK PAIN RADIATION DOSAGE (If Supplied By Facility): CTDIvol = ( 18.64 ) mGy, DLP = ( 954.52 ) mGycm TECHNIQUE: Transaxial images were obtained from the dome of the diaphragm to the symphysis pubis without oral contrast, and without intravenous contrast. Sagittal and coronal images were reconstructed. Individualized dose optimization techniques were used for this CT. COMPARISON: 02/18/2019 FINDINGS: The visualized lung bases are unremarkable. The visualized portions of the heart are within normal limits. There is decreased attenuation of the liver consistent with steatosis. Normal gallbladder and extrahepatic biliary system. Normal spleen. Normal pancreas. Normal bilateral adrenal glands. Normal right kidney. There is small calculi in the left kidney measuring up to 4.4 mm. No hydronephrosis or ureteral calculi. There is mild induration adjacent to the left renal pelvis and ureter. Normal visualized stomach. Normal small intestine. There are multiple colonic diverticula consistent with diverticulosis. The appendix is visualized and appears normal. Mild atherosclerosis of the abdominal aorta and iliac arteries. Normal inferior vena cava. Normal retroperitoneum. Normal urinary bladder. Normal abdominal wall. Mild degenerative changes of the lumbar spine. CT/Abdomen/Pelvis without Cont IMPRESSION: 1. Left nephrolithiasis without hydronephrosis. Periureteral stranding may suggest recently passed calculus versus urinary tract infection. Recommend correlating with urinalysis. 2. Hepatic steatosis. Electronically Signed: Darci Kirby MD ([place]) at 11:06 EST , Service support ,
[2019-03-29] MEDS: Morphine 4 MG/ML Syringe IV ×2 (10:25→11:32)
[2019-03-29] MEDS: Ondansetron 4 MG/2 ML Vial IV (10:25)
[2019-03-29 10:28] LABS: Absolute Lymphocyte Count 2.17 X10^3/uL (0.83-4.51); Absolute Neutrophil Count 6.6 X10^3/uL (2.0-7.7); Basophil# 0.07 X10^3/uL; Basophil% 0.7 % (0-1); Eosinophil# 0.29 X10^3/uL; Eosinophils% 2.9 % (0-5); Hematocrit 43.6 % (37-47); Hemoglobin 13.7 g/dL (12.0-15.0); Lymphocyte # 2.17 X10^3/ul (4.0); Mean Corp Hgb Conc 31.4 g/dL (32-36); Mean Corpuscular Hgb 25.7 pg (27.0-32.0); Mean Corpuscular Volume 81.8 fL (81-99); Mean Platelet Vol. 9.8 fl (6.2-12.0); Monocyte# 0.65 X10^3/uL; Monocyte% 6.6 % (0-10); NRBC Flagged by Analyzer 0 % (0-5); Neutrophil # 6.64 X10^3/uL (2.7-7.7); Neutrophil % 67.4 % (47-70); Platelet Count 367 K/mm3 (150-450); RBC Distribution Width CV 14.7 % (11.6-14.6); RBC Distribution Width SD 43.8 fl (35.1-43.9); Red Blood Count 5.33 M/mm3 (4.2-5.4); White Blood Count 9.9 K/mm3 (4.4-11.0)
[2019-03-29 10:29] VITALS: BP 154/90; TEMP 36.3
[2019-03-29 10:51] LABS: Anion Gap 6 (5-15); BUN 12 mg/dL (7-18); BUN/Creat Ratio 12.4 RATIO (10-20); Calcium,Total 9.2 mg/dL (8.5-10.1); Chloride 104 mmol/L (98-107); Creatinine, Serum 0.96 mg/dL (0.55-1.02); EST Glomerular Filtration Rate 62 mL/min (>60); Est Glom Filt Rate - Afr Amer 74 mL/min (>60); Estimated Creatinine Clearance 48.33 ml/min; Glucose 109 mg/dL (74-106); Potassium 3.4 mmol/L (3.5-5.1); Sodium Level 138 mmol/L (136-145)
[2019-03-29 11:21] LABS: Mucous, Urine 0 SEEN /hpf (<or=2+); White Blood Cells 0 SEEN /hpf (0-5)
[2019-03-29 11:23] LABS: Color, Urine Yellow (Yellow); Glucose, Dipstick Normal (Normal); Ketone-Dipstick Negative (Negative); Leukocyte Esterase-Dipstick Negative /ul (Negative); Nitrite-Dipstick Negative (Negative); Occult Blood-Urine 50 /ul (Negative); Protein-Dipstick Negative (Negative); Urine Bilirubin Dipstick Negative (Negative); Urine Clarity Sl. Cloudy (Clear); Urine Urobilinogen Normal (Normal)
[2019-03-29 11:30] LABS: Bacteria RARE /hpf (None Seen); Red Blood Cells-Urine 0-5 SEEN /hpf (0-5); Squamous Epithelial Cells - UA 0-5 SEEN /hpf (5-10)
[2019-03-29] MEDS: HYDROmorphone 1 MG/ML Syringe IV (12:14)
[2019-03-29 12:15] VITALS: BP 160/74; PULSE 66; RESP 20; O2SAT 100
--- NOTE | 2019-03-29 13:08 | ED.DEP ---
ED Disposition - Plan for ED Patient: Instructions: KIDNEY STONE, Passed Prescriptions: Oxycodone HCl/Acetaminophen [Percocet 5/325] 1 tablet PO Q6H PRN PRN 3 Days #12 tablet PRN Reason: Pain Ondansetron [Zofran Odt] 4 mg PO Q8H PRN PRN #10 tablet PRN Reason: Nausea Referrals: Bowen Barnes MD [Primary Care Provider] - Garfield Mora MD [STAFF PHYSICIAN] -
[2019-03-29 13:50] VITALS: BP 160/74; PULSE 66; RESP 17
== END 2019-03-29 13:51 | disposition home or self-care (01) ==
PROVIDERS: Emergency Provider Emergency Medicine; PCP Family Medicine
DX: N20.0 Calculus of kidney (principal); Z87.442 Personal history of urinary calculi; Z87.891 Personal history of nicotine dependence
CPT/HCPCS: 74176; 80048; 81001; 85025; 96374; 96375; 96376; 99283; A4216; J2405

== ENCOUNTER → 2019-12-10 13:41 | Outpatient (CLI) | payer MEDICARE, SELFPAY ==
[2019-12-10 15:40] LABS: Absolute Neutrophil Count 8.4 X10^3/uL (2.0-7.7); Basophil% 0.8 % (0-1); Eosinophil# 0.16 X10^3/uL; Eosinophils% 1.3 % (0-5); Hematocrit 43.1 % (37-47); Hemoglobin 13.7 g/dL (12.0-15.0); Lymphocyte % 20.8 % (19-41); Mean Corp Hgb Conc 31.8 g/dL (32-36); Mean Corpuscular Hgb 26.3 pg (27.0-32.0); Mean Corpuscular Volume 82.9 fL (81-99); Mean Platelet Vol. 9.9 fl (6.2-12.0); Monocyte# 0.81 X10^3/uL; Monocyte% 6.7 % (0-10); NRBC Flagged by Analyzer 0 % (0-5); Platelet Count 460 K/mm3 (150-450); RBC Distribution Width SD 45.4 fl (35.1-43.9)
[2019-12-10 16:28] LABS: Anion Gap 7 (5-15); BUN 15 mg/dL (7-18); BUN/Creat Ratio 22.2 RATIO (10-20); Calcium,Total 9.9 mg/dL (8.5-10.1); Chloride 105 mmol/L (98-107); Cholesterol 265 mg/dL (200); Creatinine, Serum 0.68 mg/dL (0.55-1.02); EST Glomerular Filtration Rate 92 mL/min (>60); Est Glom Filt Rate - Afr Amer 112 mL/min (>60); Glucose 79 mg/dL (74-106); High Density Lipoprotein 68 mg/dL; Potassium 3.6 mmol/L (3.5-5.1); Sodium Level 138 mmol/L (136-145); T4 Free Direct 1.06 ng/dL (0.76-1.46); Thyroid Stim Hormone (TSH) 1.29 uIU/mL (0.358-3.74); Triglycerides 97 mg/dL; Very Low Density Lipoprotein 19 mg/dL (5-40)
== END ==
PROVIDERS: PCP Family Medicine; Visit Provider Family Medicine
DX: I10 Essential (primary) hypertension (principal); I49.1 Atrial premature depolarization
CPT/HCPCS: 36415; 80048; 80061; 84439; 84443; 85025

== ENCOUNTER 2020-02-01 10:35 | Emergency (ER) | payer MEDICARE, SELFPAY ==
[2020-02-01 10:37] VITALS: BP 129/81; PULSE 87; RESP 16; TEMP 36.9; O2SAT 98; BMI 33.3
--- NOTE | 2020-02-01 11:09 | CT_ITS ---
STUDY: CT BRAIN WITHOUT CONTRAST REASON FOR EXAM: Female, 64 years old. FALL RADIATION DOSAGE (If Supplied By Facility): CTDIvol = ( 44.99 ) mGy, DLP = ( 812.98 ) mGycm TECHNIQUE: Transaxial CT imaging of the brain was performed without administration of intravenous contrast material. Individualized dose optimization techniques were used for this CT. COMPARISON: 01/24/2016 FINDINGS: Normal soft tissue structures. Normal calvarium. Normal size ventricles and extra-axial spaces for the patient''s age. Normal white matter tracts of the cerebral hemispheres. Normal basal ganglia and thalami. Normal brainstem. Normal cerebellum. There is no intracranial hemorrhage. There are no findings of an acute ischemic infarction. Normal visualized paranasal sinuses. CT/Brain/Head without Contrast IMPRESSION: Normal unenhanced CT scan of the brain. Electronically Signed: Adriano Chapa MD at 11:48 EST Tel , Service support ,
--- NOTE | 2020-02-01 11:11 | ED.VIS.GEN ---
History of Present Illness Chief Complaint: Fall Informant: Patient Narrative: 64-year-old female presents via EMS following a fall. Patient was setting up with her neurologist and missed her step falling down 2 steps onto the garage floor. She states she did hit her head but did not have a loss of consciousness. She states she is not on any blood thinners. She states that she has pain from just above her right knee all the way down the rest of the leg. - Past Medical History (1) History of gastroesophageal reflux (GERD) Status: Chronic (2) Kidney stones Status: Chronic (3) Obesity (BMI 30-39.9) Status: Chronic Past Medical History - Allergies and Home Meds Allergies/Adverse Reactions: Allergies Sulfa (Sulfonamide Antibiotics) Allergy (Verified 02/01/20 10:36) Itching Primary Care Physician: Bowen Barnes MD [Primary Care Provider] - Prior records reviewed: Yes Surgical History: noncontributory, - - Bilateral tubal ligation, hysterectomy, prior nephrolithiasis left-sided intervention. Smoking Status: Never smoker Drugs: None - Family History Maternal Family History: Reports: Hypertension Paternal Family History: Reports: Diabetes, Hypertension Review of Systems General: Denies: Chills, Fever, Sweats Eyes: Denies: Visual changes - bilaterally, Diplopia ENT: Denies: Rhinorrhea, Sore throat Cardiovascular: Denies: Chest pain, Palpitations Respiratory: Denies: Dyspnea, Cough, Dyspnea on exertion Gastrointestinal: Denies: Abdominal pain, Nausea, Vomiting, Diarrhea, Melena, Hematochezia Genitourinary: Denies: Dysuria, Hematuria, Frequency Musculoskeletal: Reports: Extremity Pain. Denies: Back pain Skin: Denies: Rash, Wounds Neurological: Denies: Headache, Weakness, Numbness Physical Exam Vital Signs/Narrative: Vital Signs Temp Pulse Resp BP Pulse Ox 02/01/20 10:37 98.4 F 87 16 129/81 H 98 Inital Vital Signs reviewed: Yes General: Well nourished, Well developed, No Acute Distress Head: Normocephalic, Atraumatic Eyes: Perrl, EOMI ENT: Moist mucous membranes, No rhinorrhea Neck: Supple, Nontender Cardiovascular: Regular rate, Regular rhythm, No murmurs Respiratory: No distress, CTA bilaterally, Chest nontender Abdomen: Soft, Nontender, Nondistended, Normal bowel sounds Back: Nontender, Normal Inspection Extremities: Nontender, No edema, - - I can palpate starting at the toes proximally and do not discover any areas of pain deformity or significant swelling. She is able to lift her leg off the bed and full extension. No knee effusion. NVI Skin: Normal color, No rash Neurological: Alert, Oriented x3, Cranial nerves II-XII grossly intact, Normal Strength, Normal Sensation Psychological: Normal affect, Normal Mood Diagnostic/Tx/Re-eval Clinical Impression(s) from Imaging Studies Brain CT 02/01/20 11:09 IMPRESSION: Normal unenhanced CT scan of the brain. Electronically Signed: Adriano Chapa MD at 11:48 EST Tel , Service support , Femur X-Ray 02/01/20 11:40 IMPRESSION: Normal x-ray examination of the femur. Electronically Signed: Adriano Chapa MD at 12:26 EST Tel , Service support , Tibia/Fibula X-Ray 02/01/20 11:40 IMPRESSION: Normal x-ray examination of the tibia and fibula. Electronically Signed: Adriano Chapa MD at 12:25 EST Tel , Service support , - Medical Decision Making CT the brain was obtained as she is older than 63 with head injury. My interpretation of the plain films of the right femur and right tib-fib are negative for fracture. Radiology agrees. Patient received a dose of Motrin. She will be discharged home with supportive care. ED Disposition - Plan for ED Patient: Disposition: Home or Assisted Living Diagnosis: Fall down stairs, Head injury due to trauma, Contusion of right leg Instructions: ED Contusion, Lower Extremity, ED Head Injury (Adult) Referrals: Bowen Barnes MD [Primary Care Provider] - 1 Week if not improving
--- NOTE | 2020-02-01 11:40 | RAD_ITS ---
STUDY: X-RAY - RIGHT FEMUR REASON FOR STUDY: Female, 64 years old. FELL, PAIN TECHNIQUE: 2 view(s) of the femur. COMPARISON: None. FINDINGS: Normal visualized femur. Normal visualized soft tissue structure. RAD/Femur Min 2 Views IMPRESSION: Normal x-ray examination of the femur. Electronically Signed: Adriano Chapa MD at 12:26 EST Tel , Service support ,
--- NOTE | 2020-02-01 11:40 | RAD_ITS ---
STUDY: X-RAY - RIGHT TIBIA AND FIBULA REASON FOR EXAM: Female, 64 years old. FELL,PAIN TECHNIQUE: 2 view(s) of the tibia and fibula were obtained. COMPARISON: 01/24/2016 FINDINGS: Normal visualized tibia. Normal visualized fibula. The soft tissue structures are unremarkable. RAD/Tibia & Fibula 2 Views IMPRESSION: Normal x-ray examination of the tibia and fibula. Electronically Signed: Adriano Chapa MD at 12:25 EST Tel , Service support ,
[2020-02-01] MEDS: Ibuprofen 400 MG Tablet 800 MG PO (12:24)
[2020-02-01 12:50] VITALS: PULSE 76; RESP 17; O2SAT 98
== END 2020-02-01 12:52 | disposition home or self-care (01) ==
PROVIDERS: Emergency Provider Emergency Medicine; PCP Family Medicine
DX: S09.90XA Unspecified injury of head, initial encounter (principal); S80.11XA Contusion of right lower leg, initial encounter; E66.9 Obesity, unspecified; W10.9XXA Fall (on) (from) unspecified stairs and steps, initial encounter
CPT/HCPCS: 70450; 73552; 73590; 99285; A4216

== ENCOUNTER → 2020-03-01 17:08 | Outpatient (CLI) | payer MEDICARE, SELFPAY ==
[2020-02-01 10:37] VITALS: BMI 33.3
--- NOTE | 2020-03-01 17:22 | RAD_ITS ---
STUDY: X-RAY - RIGHT KNEE REASON FOR EXAM: Right knee pain, fall with twisting injury 1 month ago. TECHNIQUE: 4 view(s) of the knee. COMPARISON: Radiographs of the right tibia and fibula 02/01/2020. FINDINGS: Normal visualized distal femur. Normal visualized proximal tibia and fibula. Normal proximal tibiofibular articulation. Normal medial femorotibial compartment. There is mild joint space narrowing of the lateral femorotibial compartment. Normal patellofemoral articulation. There is a small joint effusion. There is an enthesophyte at the superior pole of the patella. RAD/Knee 4 or More Views IMPRESSION: Mild arthrosis of the lateral femorotibial compartment. Small joint effusion. Electronically Signed: Jordan Adams MD at 15:30 EST Tel , Service support ,
== END ==
PROVIDERS: PCP Family Medicine; Referring Provider Family Medicine; Visit Provider Family Medicine
DX: M23.91 Unspecified internal derangement of right knee (principal)
CPT/HCPCS: 73564

== ENCOUNTER → 2020-03-12 17:25 | Outpatient (CLI) | payer MEDICARE, SELFPAY ==
--- NOTE | 2020-03-12 18:15 | MRI_ITS ---
Right knee pain following fall in January MRI EXAMINATION OF [facility] KNEE COMPARISON: Radiographs of the right knee on March 01, 2020 TECHNIQUE: Coronal proton density, fat-suppressed T2 and thin section T2 to the cruciate ligaments, sagittal proton density, fat-suppressed T2 and axial fat-suppressed T2-weighted images # of images including paperwork:198 FINDINGS: Bones: No acute fracture. Subtle increased signal is seen within the proximal posterior lateral tibia that may represent residual marrow edema with focal linear area of decreased signal on T1-weighted images within this region that may represent residual of a trabecular fracture seen on axial image 19 series 5. Ligaments and tendons: There is a complete tear of the midportion anterior cruciate ligament. Seen on coronal image 14 and sagittal image 11. The inferior aspect of the ligament is seen overlying the tibial spines and deep to the posterior cruciate ligament on sagittal images. The posterior cruciate ligament, iliotibial band, popliteus tendon and lateral collateral ligament are intact There is thickening and irregularity of the medial collateral ligament near the femoral attachment with a partial tear there is thickening of the ligament in a focal area of disruption seen on coronal image 14 series 6 and axial image 14 series 2. Extensor mechanism: The quadriceps tendon is intact. Enthesophyte is seen at the insertion on the patella. Minimal increased signal seen within the distal patellar tendon suggesting tendinosis. Similar changes are seen at the proximal tendon. The lateral retinaculum is intact. The medial retinaculum is thickened posteriorly suggesting a partial heel tear. There is edema seen anterior to the patellar tendon. A small amount of fluid is seen within the deep infrapatellar bursa Knee joint: Small joint effusion. There is also a popliteal cyst. No loose bodies are noted. Medial compartment: No evidence of a meniscal tear. No full-thickness articular cartilage loss. Lateral compartment: No evidence of meniscal tear. The articular cartilage is intact Patellofemoral articulation: Articular cartilage of the patella and the trochlear intact. There is approximately 3 mm medial subluxation of the patella in relation to the trochlea MRI/Lower Ext Joint Only (Routine) IMPRESSION: Complete anterior cruciate ligament tear midportion as discussed There is also partial tear of the medial collateral ligament with thickening of the ligament involving the superficial as well as deep portion. There is a focal area of disruption seen within the ligament at the superior aspect seen anteriorly. Thickening of the medial retinaculum as discussed Joint effusion Popliteal cyst Tendinosis of the patellar tendon Subtle increased signal within the posterior lateral tibia most likely residual edema. at 2248 Reported and signed by: Jahaira Herbert DO Electronically Signed: Jahaira Herbert DO at 22:47 EST Tel , Service support ,
== END ==
PROVIDERS: PCP Family Medicine; Referring Provider Family Medicine; Visit Provider Family Medicine
DX: M23.91 Unspecified internal derangement of right knee (principal)
CPT/HCPCS: 73721

== ENCOUNTER → 2020-06-16 | Outpatient (CLI) | payer MEDICARE, SELFPAY ==
[2020-06-16 12:10] LABS: Absolute Lymphocyte Count 1.76 X10^3/uL (0.83-4.51); Basophil% 1.1 % (0-1); Eosinophils% 2.3 % (0-5); Hematocrit 42.2 % (37-47); Hemoglobin 12.8 g/dL (12.0-15.0); Lymphocyte # 1.76 X10^3/ul (0.83-4.51); Lymphocyte % 20.1 % (19-41); Mean Corp Hgb Conc 30.3 g/dL (32-36); Mean Corpuscular Hgb 25.4 pg (27.0-32.0); Mean Corpuscular Volume 83.9 fL (81-99); Mean Platelet Vol. 10.2 fl (6.2-12.0); Monocyte# 0.67 X10^3/uL; Monocyte% 7.7 % (0-10); NRBC Flagged by Analyzer 0 % (0-5); Neutrophil # 5.98 X10^3/uL (2.7-7.7); Neutrophil % 68.5 % (47-70); Platelet Count 437 K/mm3 (150-450); RBC Distribution Width CV 14.7 % (11.6-14.6); RBC Distribution Width SD 45.1 fl (35.1-43.9); Red Blood Count 5.03 M/mm3 (4.2-5.4); White Blood Count 8.7 K/mm3 (4.4-11.0)
[2020-06-16 12:14] LABS: International Normalized Ratio 0.9
[2020-06-16 12:15] LABS: Partial Thromboplast Time 27.7 Seconds (24.1-36.2)
[2020-06-16 12:17] LABS: Anion Gap 6 (5-15); BUN 18 mg/dL (7-18); Calcium,Total 9.2 mg/dL (8.5-10.1); Chloride 105 mmol/L (98-107); Creatinine, Serum 0.75 mg/dL (0.55-1.02); EST Glomerular Filtration Rate 82 mL/min (>60); Est Glom Filt Rate - Afr Amer 99 mL/min (>60); Glucose 102 mg/dL (74-106); Potassium 3.9 mmol/L (3.5-5.1); Sodium Level 141 mmol/L (136-145)
== END | disposition home or self-care (01) ==
LOC: MTLAB 09:50
PROVIDERS: PCP Family Medicine; Referring Provider Family Medicine; Visit Provider Family Medicine
DX: Z01.818 Encounter for other preprocedural examination (principal); S83.519A Sprain of anterior cruciate ligament of unspecified knee, initial encounter
CPT/HCPCS: 36415; 80048; 85025; 85610; 85730

== ENCOUNTER 2020-06-28 05:53 | Day surgery (SDC) | payer MEDICARE, SELFPAY ==
[2020-06-28] VITALS (8 sets, daily range): BP systolic 106–135; BP diastolic 45–81; PULSE 77–85; RESP 16; TEMP 36.2–36.6; O2SAT 96–100; BMI 34.9
[2020-06-28] MEDS: Lactated Ringers 1,000 ML 100 ML IV (06:51)
[2020-06-28] MEDS: Cefazolin 2 GM in 0.9% Normal Saline 100 ML IV (07:28)
[2020-06-28] MEDS: Bupiv/Epi 0.25% 30 ML Vial (07:45)
[2020-06-28] MEDS: Epinephrine (1 mg/ml) 1 MG/ML VIAL (07:50)
--- NOTE | 2020-06-28 09:00 | OP.PCM_ITS ---
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
== END 2020-06-28 11:42 ==
LOC: SDC 05:54 → AC 05:55
PROVIDERS: PCP Family Medicine; Referring Provider Orthopaedic Surgery; Visit Provider Orthopaedic Surgery
PROC: (CPT 29888; principal; 2020-06-28 07:10)
DX: S83.511A Sprain of anterior cruciate ligament of right knee, initial encounter (principal); W10.9XXA Fall (on) (from) unspecified stairs and steps, initial encounter; Y93.01 Activity, walking, marching and hiking; Y92.008 Other place in unspecified non-institutional (private) residence as the place of occurrence of the external cause; S83.281A Other tear of lateral meniscus, current injury, right knee, initial encounter; H91.92 Unspecified hearing loss, left ear; M17.11 Unilateral primary osteoarthritis, right knee; H91.91 Unspecified hearing loss, right ear; I10 Essential (primary) hypertension; Z79.899 Other long term (current) drug therapy; Z87.891 Personal history of nicotine dependence
CPT/HCPCS: 01400; 29881; 29888; J7120

== ENCOUNTER → 2020-10-18 11:41 | Outpatient (CLI) | payer MEDICARE, SELFPAY ==
--- NOTE | 2020-10-18 11:46 | RAD_ITS ---
INDICATION: HEMATURIA EXAMINATION/TECHNIQUE: X-RAY - XR Abdomen 1 View COMPARISON: 03/11/2019 and 02/28/2019. FINDINGS: BOWEL GAS PATTERN: Non-obstructive. No bowel or stomach distention. FREE AIR: Not assessed on a single supine view. ORGANOMEGALY: Not seen. CALCIFICATIONS: A 0.7 cm calcification is visualized superimposed over the midpole of the left kidney no other evident calcifications visualized superimposed over the renal beds. LOWER CHEST: No acute pathology. BONES AND SOFT TISSUES: No acute pathology. RAD/Abdomen Single View IMPRESSION: 0.7 cm calcification visualized superimposed over the midpole of the left kidney. Electronically Signed: Omkar Espinal MD at 13:23 EDT Tel , Service support ,
--- NOTE | 2020-10-18 11:46 | RAD_ITS ---
INDICATION: LBP EXAMINATION/TECHNIQUE: X-RAY - XR Spine Lumbar Min 4 Views COMPARISON: None. FINDINGS: Degenerative endplate changes visualized, no evidence of spondylolisthesis. No evidence of compression deformity of the lumbar vertebral bodies. Slight decreased intervertebral disc height visualized at L5-S1, otherwise the intervertebral disc spaces are unremarkable. Increased density in the posterior column most prominent at L5 and to lesser extent the L4 consistent with hypertrophic changes of the facet joints. Included bowel gas pattern is non-obstructive. 0.7 cm calcification visualized superimposed over the mid pole of the left kidney. RAD/L/S Spine Min 4 Views IMPRESSION: Degenerative changes. No evidence of lumbar spinal fracture or spondylolisthesis. 0.7 cm calcification over the left renal bed. Electronically Signed: Omkar Espinal MD at 13:26 EDT Tel , Service support ,
== END ==
PROVIDERS: PCP Family Medicine; Referring Provider Family Medicine; Visit Provider Family Medicine
DX: M54.5 Low back pain (principal); R31.29 Other microscopic hematuria
CPT/HCPCS: 72110; 74018

== ENCOUNTER → 2021-01-11 14:10 | Outpatient (CLI) | payer MEDICARE, SELFPAY ==
--- NOTE | 2021-01-11 14:12 | BI_ITS ---
MAMMOGRAPHY - BILATERAL SCREENING 3-D TOMOSYNTHESIS REASON FOR EXAM: Female, 65 years old. Routine screening PERTINENT HISTORY: No significant family history. TECHNIQUE: 2-D mammograms and 3-D Tomosynthesis of the breast (s) were performed. CAD was performed. COMPARISON: 02/13/2019 FINDINGS: The breast composition is composed of scattered fibroglandular density. Scattered benign calcifications are seen. No dense spiculated masses or suspicious microcalcifications are identified. No architectural distortion is identified. There is no skin thickening or retraction. There has been no significant change since the prior study. BI/SCRN MAMM (CAD)W/JELENA BILAT IMPRESSION: No mammographic signs of malignancy. Routine yearly mammograms recommended. ASSESSMENT CATEGORY: BIRADS Category 1: Negative. A letter regarding these results will be sent to the patient by the facility within 30 days. FOLLOW UP RECOMMENDATION: Yearly follow up mammogram recommended. (A) Approximately 10% of breast cancers are not detected by mammography. A normal mammogram should not delay biopsy of a clinically suspicious abnormality. Electronically Signed: Donald Gan MD at 16:17 EST , Service support ,
--- NOTE | 2021-01-11 14:24 | BD_ITS ---
STUDY: DUAL ENERGY X-RAY ABSORPTIOMETRY / DXA REASON FOR EXAM: Female, 65 years old. [id number]. The patient is postmenopausal. TECHNIQUE: Bone Mineral Density (BMD) measurements of lumbar spine and bilateral hips were obtained. COMPARISON: None. FINDINGS: Lumbar Spine (L1-L4): g/cm2 (0.790) / T-score (-2.0) / Z-score (-0.1) Findings are suggestive of osteopenia with a moderate fracture risk. Left Femur Total: g/cm2 (0.873) / T-score (-0.6) / Z-score (0.8) Left Femoral Neck: g/cm2 (0.677) / T-score (-1.5) / Z-score (0.1) Right Femur Total: g/cm2 (0.777) / T-score (-1.4) / Z-score (0.0) Right Femoral Neck: g/cm2 (0.678) / T-score (-1.5) / Z-score (0.1) BD/Dexa Bone Density Study IMPRESSION: The patient is considered osteopenic as outlined below according to World [place] Organization (WHO) criteria with a moderate fracture risk. Reference Information: The T-score is the number of standard deviations above or below the standard which is normal for young adults at their peak bone mineral density. The World Health Organization (WHO) interprets the T-scores as follows: Above -1 Normal bone density Between -1 and -2.5 Osteopenia Equal to / or below -2.5 Osteoporosis As a practical clinical guideline, osteopenia may be graded as follows: Mild -1 through -1.5 Moderate -1.6 through -2.0 Severe -2.1 through -2.4 The Z-score is the number of standard deviations above or below age-matched controls. A Z-score of less than -1.5 would be considered abnormal. References: 1. NIH Osteoporosis and Related Bone Diseases www osteo.org 2. International Society for Clinical Densitometry www iscd.org 3. National Osteoporosis Foundation www nof.org Electronically Signed: Elmer Fox MD at 10:47 EST , Service support ,
== END ==
PROVIDERS: PCP Family Medicine; Referring Provider Family Medicine; Visit Provider Family Medicine
DX: Z78.0 Asymptomatic menopausal state (principal); Z12.31 Encounter for screening mammogram for malignant neoplasm of breast
CPT/HCPCS: 77063; 77067; 77080

== ENCOUNTER → 2022-01-16 | Outpatient (CLI) | payer MEDICARE, SELFPAY ==
--- NOTE | 2022-01-16 13:06 | BI_ITS ---
MAMMOGRAPHY - BILATERAL SCREENING REASON FOR EXAM: Female, 66 years old. Routine annual screening examination. PERTINENT HISTORY: Non-contributory. TECHNIQUE: Digital bilateral breast jelena (3D mammographic acquisition) in the CC and MLO projections. 2-D mediolateral oblique (MLO) and craniocaudad (CC) views of both breasts were obtained. CAD: Full Field Digital Mammography with Computer Added Detection was performed. COMPARISON: Comparison is made with prior study 01/11/2021 and 02/13/2019. FINDINGS: Breast Composition: There are scattered areas of fibroglandular density. There are no dominant masses or suspicious calcifications. Stable small benign-appearing bilateral axillary lymph nodes. No other significant abnormalities are identified. There has been no significant change since the prior study. BI/SCRN MAMM (CAD)W/JELENA BILAT IMPRESSION: Stable bilateral screening mammogram. Yearly follow-up mammogram recommended. (A) ASSESSMENT CATEGORY: BIRADS Category 2: Benign. A letter regarding these results will be sent to the patient by the facility within 30 days. Approximately 10% of breast cancers are not detected by mammography. A normal mammogram should not delay biopsy of a clinically suspicious abnormality. [id number] Electronically Signed: Elmer Fox MD at 14:10 EST ,
== END | disposition home or self-care (01) ==
LOC: OPBI 13:03
PROVIDERS: PCP Family Medicine; Visit Provider Family Medicine
DX: Z12.31 Encounter for screening mammogram for malignant neoplasm of breast (principal)
CPT/HCPCS: 77063; 77067

== ENCOUNTER 2022-05-29 09:25 | Outpatient (CLI) | payer MEDICARE, SELFPAY ==
[2022-05-29 12:08] LABS: Absolute Neutrophil Count 5.9 X10^3/uL (2.0-7.7); Basophil# 0.07 X10^3/uL; Basophil% 0.8 % (0-1); Eosinophil# 0.25 X10^3/uL; Eosinophils% 2.8 % (0-5); Hematocrit 43.4 % (37-47); Hemoglobin 13.6 g/dL (12.0-15.0); Lymphocyte % 23.4 % (19-41); Mean Corp Hgb Conc 31.3 g/dL (32-36); Mean Platelet Vol. 10.1 fl (6.2-12.0); Monocyte# 0.64 X10^3/uL; Monocyte% 7.1 % (0-10); NRBC Flagged by Analyzer 0 % (0-5); Neutrophil # 5.89 X10^3/uL (2.7-7.7); Neutrophil % 65.7 % (47-70); Platelet Count 388 K/mm3 (150-450); RBC Distribution Width CV 14.9 % (11.6-14.6); RBC Distribution Width SD 45.1 fl (35.1-43.9); Red Blood Count 5.23 M/mm3 (4.2-5.4)
[2022-05-29 13:30] LABS: AST(SGOT) 20 U/L (15-37); Alanine Aminotransfer ALT/SGPT 26 U/L (13-56); Albumin, Serum 3.8 g/dL (3.2-5.0); Alkaline Phosphatase 86 U/L (45-117); Anion Gap 4 (5-15); BUN 13 mg/dL (7-18); BUN/Creat Ratio 19.1 RATIO (10-20); Calcium,Total 9.3 mg/dL (8.5-10.1); Chloride 106 mmol/L (98-107); Cholesterol 231 mg/dL (200); Creatinine, Serum 0.68 mg/dL (0.55-1.02); EST Glomerular Filtration Rate 91 mL/min (>60); Est Glom Filt Rate - Afr Amer 110 mL/min (>60); Globulin 3.8 g/dL (2.2-4.2); Glucose 91 mg/dL (74-106); High Density Lipoprotein 75 mg/dL; Potassium 4.2 mmol/L (3.5-5.1); Protein, Total 7.6 g/dL (6.4-8.2); Sodium Level 136 mmol/L (136-145); Thyroid Stim Hormone (TSH) 1.22 uIU/mL (0.358-3.74); Triglycerides 67 mg/dL; Very Low Density Lipoprotein 13 mg/dL (5-40)
== END 2022-05-29 23:59 | disposition home or self-care (01) ==
PROVIDERS: PCP Family Medicine
DX: Z00.01 Encounter for general adult medical examination with abnormal findings (principal)
CPT/HCPCS: 36415; 80053; 80061; 84443; 85025

== ENCOUNTER → 2023-01-17 | Outpatient (CLI) | payer MEDICARE, SELFPAY ==
--- NOTE | 2023-01-17 12:34 | BI_ITS ---
MAMMOGRAPHY - BILATERAL SCREENING REASON FOR EXAM: Female, 67 years old. Routine annual screening examination. PERTINENT HISTORY: Non-contributory. TECHNIQUE: Digital bilateral breast jelena (3D mammographic acquisition) in the CC and MLO projections. 2-D mediolateral oblique (MLO) and craniocaudad (CC) views of both breasts were obtained. CAD: Full Field Digital Mammography with Computer Added Detection was performed. COMPARISON: Comparison is made with prior study of January 16, 2022 and January 11, 2021. FINDINGS: Breast Composition: There are scattered areas of fibroglandular density. There are no dominant masses or suspicious calcifications. Stable benign-appearing bilateral axillary lymph nodes. No other significant abnormalities are identified. There has been no significant change since the prior study. BI/SCRN MAMM (CAD)W/JELENA BILAT IMPRESSION: Stable bilateral screening mammogram. Yearly follow-up mammogram recommended. (A) ASSESSMENT CATEGORY: BIRADS Category 2: Benign. A letter regarding these results will be sent to the patient by the facility within 30 days. Approximately 10% of breast cancers are not detected by mammography. A normal mammogram should not delay biopsy of a clinically suspicious abnormality. [id number] Electronically Signed: Elmer Fox MD at 10:30 EST ,
== END | disposition home or self-care (01) ==
LOC: OPBI 12:33
PROVIDERS: PCP Family Medicine; Referring Provider Nurse Practitioner Family; Visit Provider Nurse Practitioner Family
DX: Z12.31 Encounter for screening mammogram for malignant neoplasm of breast (principal)
CPT/HCPCS: 77063; 77067

== ENCOUNTER → 2023-03-26 | Outpatient (CLI) | payer MEDICARE, SELFPAY ==
--- NOTE | 2023-03-26 10:39 | RAD_ITS ---
INDICATION: CHEST WALL PAIN/POST FALL EXAMINATION/TECHNIQUE: X-RAY - XR Ribs Unilateral Min 2 Views COMPARISON: No relevant prior comparison study available FINDINGS: SOFT TISSUES: No soft tissue swelling or gas. BONES: No displaced fracture. No sclerotic or destructive changes observed. VISUALIZED LUNGS: Clear. No pneumothorax. RAD/Ribs Unil 2V No CXR IMPRESSION: No evidence of displaced rib fracture. Electronically Signed: Duke Gloria MD at 17:34 EST ,
--- OUTSIDE RECORDS SUMMARY | 2023-03-26 11:05 | XMS RPT_ITS | CCD ---
Author Name Unknown Address [address] [place] [address] Organization [facility] Care Team Providers Care Head Of Housekeeping Name Role Phone Tere Lynch LPN Unavailable Tere Lynch LPN Unavailable [phone] Tere Lynch LPN Unavailable Allergies Allergy Classification Reported Allergen(s) Allergy Type Date of Onset Reaction(s) Facility (2 sources) Sulfonamides (Antibiotic) drug allergy 09-29-2016 [facility] Work Phone: Medications Completed/Discontinued Medications Medication Drug Class(es) Dates Sig (Normalized) Sig (Original) melatonin (2 sources) Start: 09-29-2016 [facility] M[facility] as directed MELATONIN CAPS [phone] Tere Lynch LPN Drug Treatment Unknown - unknown (1 source) No information available. Problems Active Problems Problem Classification Problem Date Documented Da te Episodic/Chronic Other screening for suspected conditions (not mental disorders or infectious disease) (1 source) No current problems or disability 09-29-2016 Past or Other Problems Problem Classification Problem Date Documented Da te Episodic/Chronic Allergic reactions (2 sources) Contact dermatitis due to plants; Translations: [Unspecified contact dermatitis due to plants, except food] Onset: 09-29-2016 09-29-2016 Episodic Results Test Name Value Interpretation Reference Range Facil ity Vital Signs Date Time Vital Sign Value Performing Clinician Anamaria licea 09-29-2016 14:52-0400 BMI (Body Mass Index) 35.04 kg/m2 Tere Lynch LPN [facility] Work Phone: 09-29-2016 14:52-0400 Body Temperature 98.7 [degF] Tere Lynch LPN [facility] Work Phone: 09-29-2016 14:52-0400 BP Diastolic 84 mm[Hg] Tere Lynch LPN [facility] Work Phone: 09-29-2016 14:52-0400 BP Systolic 128 mm[Hg] Tere Lynch LPN [facility] Work Phone: 09-29-2016 14:52-0400 Height 161.29 cm Tere Lynch LPN [facility] Work Phone: 09-29-2016 14:52-0400 Pulse (Heart Rate) 91 /min Tere Lynch LPN [facility] Work Phone: 09-29-2016 14:52-0400 Respiratory Rate 14 /min Tere Lynch LPN [facility] Work Phone: 09-29-2016 14:52-0400 Weight 91.17 kg Tere Lynch LPN [facility] Work Phone: Plan of Treatment Date Care Activity Detail Author Start: 09-29-2016 End: 09-29-2016 Appointment Appointment [facility] Work Phone: Patient Education CONTACT%20DERMATITIS [facility] Work Phone: Additional Source Comments FOR RECORDS PERTAINING TO PATIENTS WHO ARE OR HAVE BEEN ENROLLED IN A CHEMICAL DEPENDENCY/SUBSTANCEABUSE PROGRAM, SOME INFORMATION MAY BE OMITTED. This clinical summary was aggregated from multiple sources. Caution should be exercised in using it in the provision of clinical care. This summary normalizes information from multiple sources, and as a consequence, information in this document may materially change the coding, format and clinical context of patient data. In addition, data may be omitted in some cases. CLINICAL DECISIONS SHOULD BE BASED ON THE PRIMARY CLINICAL RECORDS. [employer] provides no warranty or guarantee of the accuracy or completeness of information in this document.
== END | disposition home or self-care (01) ==
PROVIDERS: PCP Nurse Practitioner Family; Referring Provider Nurse Practitioner Family; Visit Provider Nurse Practitioner Family
DX: R07.89 Other chest pain (principal)
CPT/HCPCS: 71100

== ENCOUNTER → 2023-03-28 | Outpatient (CLI) | payer MEDICARE, SELFPAY ==
--- NOTE | 2023-03-28 12:43 | US_ITS ---
STUDY: RENAL ULTRASOUND - COMPLETE REASON FOR EXAM: Female, 67 years old. LEFT KIDNEY PAIN . History of renal calculi. TECHNIQUE: Ultrasound evaluation of the kidneys was performed with real-time and static alba-scale imaging. COMPARISON: None. FINDINGS: RIGHT KIDNEY: Normal location of the right kidney, which is normal in size. The right kidney measures 12.1 cm x 5.7 cm x 4.7 cm. There is a normal cortex of the right kidney. The renal cortex measures 1.5 cm. There is no right renal mass or cyst. There are no right renal calculi. There is no right hydronephrosis. DISTAL RIGHT URETER: There is non-visualization of the distal right ureter. There is no demonstrated right ureterovesical junction calculus. There is a visualized right ureteral jet. LEFT KIDNEY: Normal location of the left kidney, which is normal in size. The left kidney measures 12.2 cm x 4.2 cm x 5.0 cm. There is a normal cortex of the left kidney. The renal cortex measures 1.5 cm. There is a 3.2 cm x 2.9 cm x 2.5 cm cyst. There is also evidence of a 9 mm x 8 mm x 4 mm calculus in the proximal portion of the left ureter. There are no left renal calculi. There is no left hydronephrosis. DISTAL LEFT URETER: There is non-visualization of the distal left ureter. There is no demonstrated left ureterovesical junction calculus. There is a visualized left ureteral jet. BLADDER: The distended urinary bladder has a volume of 148 ml. There is a normal wall thickness of the distended urinary bladder. There is no demonstrated mass within the urinary bladder. There are no demonstrated bladder calculi. US/Kidney and Bladder IMPRESSION: 9 mm x 8 mm x 4 mm cavernous and the proximal portion of the left ureter. Left renal cyst. Electronically Signed: Elmer Fox MD at 15:28 EST ,
== END | disposition home or self-care (01) ==
LOC: US 12:43
PROVIDERS: PCP Nurse Practitioner Family; Referring Provider Nurse Practitioner Family; Visit Provider Nurse Practitioner Family
DX: N23 Unspecified renal colic (principal); Z87.442 Personal history of urinary calculi
CPT/HCPCS: 76770

== ENCOUNTER → 2023-04-24 | Outpatient (CLI) | payer MEDICARE, SELFPAY ==
--- NOTE | 2023-04-24 10:08 | EKG12_ITS ---
Test Reason : PRE OP Blood Pressure : / mmHG Vent. Rate : 090 BPM Atrial Rate : 090 BPM P-R Int : 146 ms QRS Dur : 070 ms QT Int : 358 ms P-R-T Axes : 036 -06 -08 degrees QTc Int : 437 ms Normal sinus rhythm Nonspecific ST abnormality Abnormal ECG Confirmed by Keven Lopez ([id number]), fan mail editor CAROL OCONNOR ([id number]) on 04/24/2023 2:19:48 PM Referred By: Garfield Mora Confirmed By:Keven Lopez
--- OUTSIDE RECORDS SUMMARY | 2023-04-24 10:45 | XMS RPT_ITS | CCD ---
Author Name Unknown Address [address] [place] [address] Organization [facility] Care Team Providers Care Pitting Machine Operator Name Role Phone Tere Lynch LPN Unavailable Tere Lynch LPN Unavailable Tere Lynch LPN Unavailable Allergies Allergy Classification Reported Allergen(s) Allergy Type Date of Onset Reaction(s) Facility (2 sources) Sulfonamides (Antibiotic) drug allergy 09-29-2016 [facility] Work Phone: Medications Completed/Discontinued Medications Medication Drug Class(es) Dates Sig (Normalized) Sig (Original) melatonin (2 sources) Start: 09-29-2016 [facility]EL[facility] as directed MELATONIN CAPS [phone] Tere Lynch LPN Drug Treatment Unknown - [...] Mass Index) 35.04 kg/m2 Tere Lynch LPN [facility] Work Phone: 09-29-2016 14:52-0400 Body Temperature 98.7 [degF] Tere Lynch LPN [facility] Work Phone: 09-29-2016 14:52-0400 BP Diastolic 84 mm[Hg] Tere Lynch LPN [facility] Work Phone: 09-29-2016 14:52-0400 BP Systolic 128 mm[Hg] Tere Lynch LPN [facility] Work Phone: 09-29-2016 14:52-0400 Height 161.29 cm Tere Lynch LPN [facility] Work Phone: 09-29-2016 14:52-0400 Pulse (Heart Rate) 91 /min Tere Lynch LPN [facility] Work Phone: 09-29-2016 14:52-0400 Respiratory Rate 14 /min Tere Lynch LPN [facility] Work Phone: 09-29-2016 14:52-0400 Weight 91.17 kg Tere Lynch LPN [facility] Work Phone: Plan of Treatment Date Care Activity Detail Author Start: 09-29-2016 End: 09-29-2016 Appointment Appointment [facility] Work Phone: Patient Education CONTACT%20DERMATITIS [facility] Work Phone: Additional Source Comments [...] BE BASED ON THE PRIMARY CLINICAL RECORDS. [employer] provides no warranty or guarantee of the accuracy or completeness of information in this document.
[2023-04-24 11:05] LABS: Hematocrit 41.7 % (37-47); Hemoglobin 13.4 g/dL (12.0-15.0); Mean Corp Hgb Conc 32.1 g/dL (32-36); Mean Corpuscular Hgb 26.1 pg (27.0-32.0); Mean Corpuscular Volume 81.1 fL (81-99); Mean Platelet Vol. 9.5 fl (6.2-12.0); Platelet Count 472 K/mm3 (150-450); RBC Distribution Width CV 15.5 % (11.6-14.6); RBC Distribution Width SD 46.2 fl (35.1-43.9); Red Blood Count 5.14 M/mm3 (4.2-5.4); White Blood Count 10.1 K/mm3 (4.4-11.0)
[2023-04-24 11:31] LABS: Anion Gap 3 (5-15); BUN 17 mg/dL (7-18); Calcium,Total 9.7 mg/dL (8.5-10.1); Chloride 107 mmol/L (98-107); Creatinine, Serum 0.77 mg/dL (0.55-1.02); EST Glomerular Filtration Rate 79 mL/min (>60); Est Glom Filt Rate - Afr Amer 95 mL/min (>60); Glucose 122 mg/dL (74-106); Potassium 3.7 mmol/L (3.5-5.1); Sodium Level 139 mmol/L (136-145)
== END | disposition home or self-care (01) ==
PROVIDERS: PCP Nurse Practitioner Family; Referring Provider Urology; Visit Provider Urology
DX: Z01.810 Encounter for preprocedural cardiovascular examination (principal)
CPT/HCPCS: 36415; 80048; 85027; 93005

== ENCOUNTER → 2023-05-17 | Outpatient (CLI) | payer MEDICARE, SELFPAY ==
[2023-05-17 10:45] LABS: ALB/GLOB Ratio 0.9 RATIO (0.9-2.4); AST(SGOT) 17 U/L (15-37); Alanine Aminotransfer ALT/SGPT 28 U/L (13-56); Albumin, Serum 3.3 g/dL (3.2-5.0); Alkaline Phosphatase 96 U/L (45-117); Anion Gap 4 (5-15); BUN 18 mg/dL (7-18); BUN/Creat Ratio 27.8 RATIO (10-20); Chloride 107 mmol/L (98-107); Cholesterol 237 mg/dL (200); Creatinine, Serum 0.65 mg/dL (0.55-1.02); EST Glomerular Filtration Rate 96 mL/min (>60); Est Glom Filt Rate - Afr Amer 116 mL/min (>60); Globulin 3.8 g/dL (2.2-4.2); Glucose 96 mg/dL (74-106); High Density Lipoprotein 70 mg/dL; Potassium 4.3 mmol/L (3.5-5.1); Protein, Total 7.1 g/dL (6.4-8.2); Sodium Level 138 mmol/L (136-145); Thyroid Stim Hormone (TSH) 1.55 uIU/mL (0.358-3.74); Triglycerides 78 mg/dL; Very Low Density Lipoprotein 16 mg/dL (5-40)
== END | disposition home or self-care (01) ==
LOC: MTLAB 09:07
PROVIDERS: PCP Nurse Practitioner Family; Referring Provider Nurse Practitioner Family; Visit Provider Nurse Practitioner Family
DX: Z00.00 Encounter for general adult medical examination without abnormal findings (principal); I10 Essential (primary) hypertension; E66.9 Obesity, unspecified; Z86.59 Personal history of other mental and behavioral disorders; E78.5 Hyperlipidemia, unspecified; M85.80 Other specified disorders of bone density and structure, unspecified site
CPT/HCPCS: 36415; 80053; 80061; 84443

== ENCOUNTER → 2023-07-04 | Outpatient (CLI) | payer MEDICARE, SELFPAY ==
[2023-07-04 18:19] LABS: Absolute Lymphocyte Count 2.19 X10^3/uL (0.83-4.51); Absolute Neutrophil Count 7.9 X10^3/uL (2.0-7.7); Basophil# 0.13 X10^3/uL; Basophil% 1.1 % (0-1); Eosinophil# 0.24 X10^3/uL; Eosinophils% 2.1 % (0-5); Hematocrit 41.5 % (37-47); Lymphocyte # 2.19 X10^3/ul (0.83-4.51); Lymphocyte % 19.2 % (19-41); Mean Corp Hgb Conc 31.3 g/dL (32-36); Mean Corpuscular Hgb 25.7 pg (27.0-32.0); Mean Corpuscular Volume 82.2 fL (81-99); Mean Platelet Vol. 9.7 fl (6.2-12.0); Monocyte# 0.91 X10^3/uL; NRBC Flagged by Analyzer 0 % (0-5); Neutrophil # 7.89 X10^3/uL (2.7-7.7); Neutrophil % 69.2 % (47-70); Platelet Count 455 K/mm3 (150-450); RBC Distribution Width CV 14.8 % (11.6-14.6); RBC Distribution Width SD 44.3 fl (35.1-43.9); Red Blood Count 5.05 M/mm3 (4.2-5.4); White Blood Count 11.4 K/mm3 (4.4-11.0)
[2023-07-04 18:43] LABS: Vitamin B12 340 pg/mL (211-911); Vitamin D,25 Hydroxy 30.4 ng/mL
[2023-07-04 18:50] LABS: ALB/GLOB Ratio 0.9 RATIO (0.9-2.4); AST(SGOT) 16 U/L (15-37); Alanine Aminotransfer ALT/SGPT 31 U/L (13-56); Albumin, Serum 3.6 g/dL (3.2-5.0); Alkaline Phosphatase 97 U/L (45-117); Anion Gap 6 (5-15); BUN 21 mg/dL (7-18); BUN/Creat Ratio 22.8 RATIO (10-20); Calcium,Total 9.7 mg/dL (8.5-10.1); Chloride 105 mmol/L (98-107); Creatinine, Serum 0.92 mg/dL (0.55-1.02); EST Glomerular Filtration Rate 64 mL/min (>60); Est Glom Filt Rate - Afr Amer 77 mL/min (>60); Ferritin 87 ng/mL (8-252); Globulin 3.8 g/dL (2.2-4.2); Glucose 106 mg/dL (74-106); Iron 50 ug/dL (50-170); Potassium 4.1 mmol/L (3.5-5.1); Protein, Total 7.4 g/dL (6.4-8.2); Sodium Level 137 mmol/L (136-145); Thyroid Stim Hormone (TSH) 1.87 uIU/mL (0.358-3.74)
== END | disposition home or self-care (01) ==
LOC: BFHLAB 14:07
PROVIDERS: PCP Nurse Practitioner Family; Referring Provider Nurse Practitioner Family; Visit Provider Nurse Practitioner Family
DX: Z13.29 Encounter for screening for other suspected endocrine disorder (principal); R42 Dizziness and giddiness; D64.9 Anemia, unspecified; E55.9 Vitamin D deficiency, unspecified; E53.8 Deficiency of other specified B group vitamins
CPT/HCPCS: 36415; 80053; 82306; 82607; 82728; 83540; 84443; 85025

== ENCOUNTER 2023-07-30 08:00 | Outpatient (RCR) | payer MEDICARE, SELFPAY ==
--- NOTE | 2023-07-27 13:39 | HP.PTEVAL ---
Patient's Visit Information Visit Information Visit Information: BRENDA BENITEZ is a 68 year old F referred to Physical Therapy by VEE Gray with a diagnosis of Dizziness and Giddiness. Date of Evaluation: 07/27/23 Physical Therapist: STEPHANIE Velarde Visit Plan Frequency: 1-2x /Week Duration: 4 Weeks Plan: 1-2X/ week for 4 weeks for L Eply and testing of FGA and VOR if needed Subjective Subjective: She has been to PCP and ENT is a month out. She gets spinning when she sits up in the middle of the night. She was out trying to do some weeding the other day and she was dizzy. The dizzy last 60 seconds or less. It is worst when she rolls to her L side. She is trying to avoid rolling to the L side. She gets ear pressure like feeling in the L ear. Sometimes when she first lays back she will feel dizzy. Objective Objective: + dizziness L Hallpike but no nystagmus that lasted less than 60 seconds. No dizziness or nystagmus with R Hallpike. Treated L Eply. Re tested L Hallpike and was negative for dizziness or nystagmus. When pt sat up and stood up and walked she felt a little off but was fine by the time she left. Balance/Special Test Scores Dizziness Score: 22 Goals Goal 1:: I HEP Goal Time Frame: 2-4 Weeks Goal 2:: Abolish dizziness desiree rolling in bed and supine to sit Goal Time Frame: 2-4 Weeks Goal 3:: Test FGA and VOR if needed Rehabilitation Potential Rehabilitation Potential: Good Anticipated Interventions Patient/Client Instruction: Educate patient on: Condition and Plan of Care For the Purpose of:: To improve gait and locomotor functions, To improve health of tissue, To improve balance, To improve safety with gait and To assume or resume ADL's Therapeutic Exercise to Include: Strength training, Endurance training, Balance training, Coordination, Postural training, Gait and locomotor training, Neuromotor development and Active ROM For the Purpose of:: To improve muscle performance and motor function, To improve ability to perform ADL's, To increase tolerance to activity/condition/position, To improve ability of physical actions for home/community/work/leisure, To improve gait and locomotor functions, To improve balance and To improve safety with gait Functional Training to Include: Gait training For the Purpose of:: To improve gait and locomotor functions and To improve safety with gait Text: Thank you for the opportunity to evaluate your patient. For Medicare and Medicare HMO plans, please review the plan of care and approve it. It will need to be FAXED BACK to us at [phone] for Medicare purposes. For Medicare only, by signing this I certify the plan of care. Please let me know if there are questions or concerns regarding this plan of care. Physician Signature: Date:
== END 2023-07-30 19:00 | disposition home or self-care (01) ==
LOC: PT 08:00
PROVIDERS: PCP Nurse Practitioner Family; Referring Provider Nurse Practitioner Family; Visit Provider Nurse Practitioner Family
DX: R42 Dizziness and giddiness (principal)
CPT/HCPCS: 97161; 97530

== ENCOUNTER → 2024-01-22 | Outpatient (CLI) | payer MEDICARE, SELFPAY ==
--- NOTE | 2024-01-22 13:10 | BI_ITS ---
MAMMOGRAPHY - BILATERAL SCREENING REASON FOR EXAM: Female, 68 years old. Routine annual screening examination. PERTINENT HISTORY: Non-contributory. TECHNIQUE: Digital bilateral breast jelena (3D mammographic acquisition) in the CC and MLO projections. 2-D mediolateral oblique (MLO) and craniocaudad (CC) views of both breasts were obtained. CAD: Full Field Digital Mammography with Computer Added Detection was performed. COMPARISON: Comparison is made with prior study January 17, 2023 and January 16, 2022. FINDINGS: Breast Composition: There are scattered areas of fibroglandular density. There are no dominant masses or suspicious calcifications. Stable bilateral axillary lymph nodes. No other significant abnormalities are identified. There has been no significant change since the prior study. BI/SCRN MAMM (CAD)W/JELENA BILAT IMPRESSION: Stable bilateral screening mammogram. Yearly follow-up mammogram recommended. (A) ASSESSMENT CATEGORY: BIRADS Category 2: Benign. A letter regarding these results will be sent to the patient by the facility within 30 days. Approximately 10% of breast cancers are not detected by mammography. A normal mammogram should not delay biopsy of a clinically suspicious abnormality. [id number] Electronically Signed: Elmer Fox MD at 14:26 EST ,
--- NOTE | 2024-01-22 13:17 | BD_ITS ---
STUDY: DUAL ENERGY X-RAY ABSORPTIOMETRY / DXA REASON FOR EXAM: Female, 68 years old. M85.89 TECHNIQUE: Bone Mineral Density (BMD) measurements of lumbar spine and bilateral hips were obtained. COMPARISON: Comparison is made with prior study dated January 11, 2021. FINDINGS: Lumbar Spine (L1-L4): g/cm2 (0.865) / T-score (-1.3) / Z-score (0.7) Findings are suggestive of osteopenia with a low fracture risk. Left Femur Total: g/cm2 (0.894) / T-score (-0.4) / Z-score (1.1) Left Femoral Neck: g/cm2 (0.716) / T-score (-1.2) / Z-score (0.6) Right Femur Total: g/cm2 (0.804) / T-score (-1.1) / Z-score (0.4) Right Femoral Neck: g/cm2 (0.734) / T-score (-1.0) / Z-score (0.8) The T-Scores on the most recent prior examination were: Lumbar Spine (L1-L4): There has been improvement of bone density since the previous examination. Left Femur Total: which represents an improvement of 2.5%. Right Femur Total: which represents an improvement of 3.4%. BD/Dexa Bone Density Study IMPRESSION: The patient is considered osteopenic as outlined below according to World Benito Organization (WHO) criteria with a low fracture risk. There has been improvement of bone density since the previous examination. Reference Information: The T-score is the number of standard deviations above or below the standard which is normal for young adults at their peak bone mineral density. The World Health Organization (WHO) interprets the T-scores as follows: Above -1 Normal bone density Between -1 and -2.5 Osteopenia Equal to / or below -2.5 Osteoporosis As a practical clinical guideline, osteopenia may be graded as follows: Mild -1 through -1.5 Moderate -1.6 through -2.0 Severe -2.1 through -2.4 The Z-score is the number of standard deviations above or below age-matched controls. A Z-score of less than -1.5 would be considered abnormal. References: 1. NIH Osteoporosis and Related Bone Diseases www osteo.org 2. International Society for Clinical Densitometry www iscd.org 3. National Osteoporosis Foundation www nof.org Electronically Signed: Elmer Fox MD at 14:21 EST ,
== END | disposition home or self-care (01) ==
LOC: OPBD 13:09
PROVIDERS: PCP Nurse Practitioner Family; Referring Provider Nurse Practitioner Family; Visit Provider Nurse Practitioner Family
DX: Z12.31 Encounter for screening mammogram for malignant neoplasm of breast (principal); M85.89 Other specified disorders of bone density and structure, multiple sites
CPT/HCPCS: 77063; 77067; 77080

== ENCOUNTER → 2024-02-18 | Outpatient (CLI) | payer MEDICARE, SELFPAY ==
--- NOTE | 2024-02-18 09:40 | RAD_ITS ---
STUDY: X-RAY CHEST REASON FOR EXAM: Female, 68 years old. COUGH/RULE OUT PNEUMONIA TECHNIQUE: PA and lateral views of the chest. COMPARISON: None. FINDINGS: The lungs are clear and expanded. There is no demonstrated pleural abnormality. Normal size heart. Normal mediastinum and rufino. Normal visualized pulmonary arteries. Normal visualized aortic arch and descending thoracic aorta. Normal visualized thoracic spine. Normal visualized ribs, clavicles, and shoulders. There is no demonstrated abnormality of the visualized soft tissue structures of the upper abdomen. RAD/Chest PA and Lateral IMPRESSION: Normal x-ray examination of the chest. Electronically Signed: Adriano Chapa MD at 18:21 EST ,
== END | disposition home or self-care (01) ==
PROVIDERS: PCP Nurse Practitioner Family; Referring Provider Nurse Practitioner Family; Visit Provider Nurse Practitioner Family
DX: R05.9 Cough, unspecified (principal)
CPT/HCPCS: 71046

== ENCOUNTER → 2024-06-03 | Outpatient (CLI) | payer MEDICARE, SELFPAY ==
[2024-06-03 12:42] LABS: Absolute Lymphocyte Count 1.83 X10^3/uL (0.83-4.51); Absolute Neutrophil Count 6.2 X10^3/uL (2.0-7.7); Basophil% 1.1 % (0-1); Eosinophil# 0.22 X10^3/uL; Eosinophils% 2.5 % (0-5); Hematocrit 43.7 % (37-47); Hemoglobin 14.2 g/dL (12.0-15.0); Lymphocyte # 1.83 X10^3/ul (0.83-4.51); Lymphocyte % 20.4 % (19-41); Mean Corp Hgb Conc 32.5 g/dL (32-36); Mean Corpuscular Hgb 26.1 pg (27.0-32.0); Mean Corpuscular Volume 80.2 fL (81-99); Mean Platelet Vol. 9.9 fl (6.2-12.0); Monocyte% 6.7 % (0-10); NRBC Flagged by Analyzer 0 % (0-5); Neutrophil # 6.18 X10^3/uL (2.7-7.7); Platelet Count 401 K/mm3 (150-450); RBC Distribution Width CV 15.6 % (11.6-14.6); RBC Distribution Width SD 44.9 fl (35.1-43.9); Red Blood Count 5.45 M/mm3 (4.2-5.4)
[2024-06-03 13:24] LABS: ALB/GLOB Ratio 1.2 RATIO (0.9-2.4); AST(SGOT) 43 U/L (<=31); Alanine Aminotransfer ALT/SGPT 58 U/L (<=34); Albumin, Serum 4.2 g/dL (3.4-4.8); Alkaline Phosphatase 105 U/L (35-104); Anion Gap 12 (5-15); BUN 15 mg/dL (4-19); BUN/Creat Ratio 21.1 RATIO (10-20); Calcium,Total 9.7 mg/dL (7.6-11.0); Carbon Dioxide 22.6 mmol/L (21.0-32.0); Chloride 104 mmol/L (98-108); Cholesterol 259 mg/dL (<=200); EST Glomerular Filtration Rate 92 (>60); Ferritin 257 ng/mL (22-378); Globulin 3.4 g/dL (2.2-4.2); Glucose 104 mg/dL (70-99); High Density Lipoprotein 69 mg/dL; Low Density Lipoprotein Calc. 174 mg/dL; Potassium 4.1 mmol/L (3.3-5.1); Protein, Total 7.5 g/dL (5.9-8.4); Sodium Level 139 mmol/L (133-145); Total Bilirubin 0.54 mg/dL (0.00-1.30); Triglycerides 83 mg/dL; Very Low Density Lipoprotein 17 mg/dL (5-40); Vitamin D,25 Hydroxy 41.6 ng/mL (30-100); cholesterol:hdl ratio screen 3.75
[2024-06-03 14:02] LABS: Iron 92 ug/dL (50-170)
== END | disposition home or self-care (01) ==
LOC: BFHLAB 10:01
PROVIDERS: PCP Nurse Practitioner Family; Visit Provider Nurse Practitioner Family
DX: I10 Essential (primary) hypertension (principal); E78.5 Hyperlipidemia, unspecified; E55.9 Vitamin D deficiency, unspecified; E61.1 Iron deficiency
CPT/HCPCS: 36415; 80053; 80061; 82306; 82728; 83540; 85025

== ENCOUNTER → 2024-06-30 | Outpatient (CLI) | payer MEDICARE, SELFPAY ==
--- NOTE | 2024-06-30 09:56 | RAD_ITS ---
PROCEDURE: ABDOMEN SINGLE VIEW 06/30/2024 REASON FOR EXAM: CALCULUS OF KIDNEY TECHNIQUE: Single view abdomen. 2 images to include the entire abdomen and pelvis COMPARISON: 10/18/2020 FINDINGS: A couple of small faint density suggested at the central aspect of the left renal shadow may represent stones or possible bowel material. Pelvic calcifications are not significantly changed since the prior. No gaseous distention of bowel. Lower lumbar facet degenerative changes. RAD/Abdomen Single View IMPRESSION: A couple of small faint density suggested at the central aspect of the left luis fernando al shadow may represent stones or possible bowel material. Reading Location: [id number]
== END | disposition home or self-care (01) ==
LOC: RAD 09:53
PROVIDERS: PCP Nurse Practitioner Family; Referring Provider Urology; Visit Provider Urology
DX: N20.0 Calculus of kidney (principal)
CPT/HCPCS: 74018

== ENCOUNTER → 2025-01-23 | Outpatient (CLI) | payer MEDICARE, SELFPAY ==
--- NOTE | 2025-01-23 12:00 | BI_ITS ---
EXAM: SCRN MAMM (CAD)W/JELENA BILAT DATE: 01/23/2025 CLINICAL HISTORY: F, Age 69 y/o , SCREENING TECHNIQUE: Procedure Code: [id number] Modality: MG Procedure: SCRN MAMM (CAD)W/JELENA BILAT COMPARISON: Prior exam(s) dated 01/22/2024, 01/17/2023, 01/16/2022. FINDINGS: TISSUE DENSITY: The breasts are almost entirely fatty. Bilateral Breast Mammographic Findings: No significant masses, calcifications or other abnormalities are identified. BI/SCRN MAMM (CAD)W/JELENA BILAT IMPRESSION: There is no mammographic evidence of malignancy. OVERALL FINAL ASSESSMENT BI-RADS 1: NEGATIVE. RECOMMENDATION: Routine annual follow-up in 1 Year Additional Recommendation none A letter with findings and recommendations will be mailed to the patient. Reading Location: [id number]
--- OUTSIDE RECORDS SUMMARY | 2025-01-23 12:18 | XMS RPT_ITS | CCD ---
Author Organization [facility] CliniSywa Care Team Providers Care Civil Engineering Teacher Name Role Phone Cogar RAILROAD SUPERVISOR OF ENGINES, Tere N Unavailable Cogar RAILROAD SUPERVISOR OF ENGINES, Tere N Unavailable Cogar RAILROAD SUPERVISOR OF ENGINES, Tere N Unavailable Dr. Bowen Barnes Primary Care Provider Unavaila ble Dr. Bowen Barnes Referring Provider Unavailable Chuckie GAMBOA, COOPER Peralta Attending Provider Wili, MEDICAL MANAGEMENT SPECIALIST-C Chayo Primary Care Provider Dr. Keven Lopez Attending Provider [phone] Dr. Garfield Mora Referring Provider Wili MEDICAL MANAGEMENT SPECIALIST-C, Chayo Primary Care Provider Wili MEDICAL MANAGEMENT SPECIALIST-C, Chayo Attending Provider Wili MEDICAL MANAGEMENT SPECIALIST-C, Chayo Referring Provider Wili MEDICAL MANAGEMENT SPECIALIST-C, Chayo Primary Care Provider Wili MEDICAL MANAGEMENT SPECIALIST-C, Chayo Attending Provider Dr. Garfield Mora MD Attending Provider [phone] Dr. Garfield Mora MD Referring Provider Wili, Chayo Primary Care Unavailable Garfield Mora Attending Unavailable Garfield Mora Referring Unavailable Wili, Chayo Primary Care Unavailable Iwli, Chayo Attending Unavailable Wili, Chayo Primary Care Unavailable Wili, Chayo Attending Unavailable Wili, Chayo Referring Unavailable Wili, Chayo Primary Care Unavailable Wili, Chayo Attending Unavailable Wili, Chayo Referring Unavailable Wili, Chayo Referring Unavailable Wili, Chayo Primary Care Unavailable Wili, Chayo Attending Unavailable Allergies Allergy Classification Reported Allergen(s) Allergy Type Date of Onset Reaction(s) Facility (2 sources) Sulfonamides (Antibiotic) drug allergy 7 [facility] Work Phone: (9 sources) Sulfonamides (Antibiotic) Allergy to substance 1 Itching [facility] (1 source) Sulfonamides (Antibiotic) Drug allergy (disorder) 3 [facility] Repository Medications Current Medications Medication Drug Class(es) Dates Sig (Normalized) Sig (Original) amLODIPine 10 mg oral tablet (9 sources) Dihydropyridine Calcium Channel Solange Start: 02-01-2020 take 1 tablet by mouth once daily Amlodipine 10 MG tablet Active 10 mg PO DAILY February 01, 2020 1:00am valACYclovir 1000 mg oral tablet (7 sources) Herpesvirus Nucleoside Analog DNA Polymerase Inhibitor, Herpes Simplex Virus Nucleoside Analog DNA Polymerase Inhibitor, Herpes Zoster Virus Nucleoside Analog DNA Polymerase Inhibitor Start: 09-08-2022 Valacyclovir 1 gram tablet Active 2000 mg PO TWICE A DAY September 08, 2022 12:00am Start: 09-08-2022 take 2000 mg by mout h twice daily Valacyclovir Active 2000 MG PO TWICE A DAY September 08, 2022 12:00am Completed/Discontinued Medications Medication Drug Class(es) Dates Sig (Normalized) Sig (Original) acetaminophen 325 mg / HYDROcodone bitartrate 5 mg oral tablet (20 sources) Opioid Agonist Start: 03-19-2019 End: 03-26-2019 Hydrocodone-Acetami nophen 1 EACH tablet Discontinued 1 NMA PO EVERY 4 HOURS NEEDED as needed for Pain Score 1-10/10 14 7 March 19, 2019 March 25, 2019 1:00am March 26, 2019 1:08am Start: 03-19-2019 End: 03-26-2019 Hydrocodone-Acetaminophen Di scontinued 1 EACH PO EVERY 4 HOURS NEEDED 14 7 March 19, 2019 March 26, 2019 1:08am Start: 02-28-2019 End: 03-05-2019 Hydrocodone-Acetaminophen 1 EACH tablet Discontinued 1 NMA PO EVERY 4 HOURS NEEDED as needed for Pain Score 1-10/10 14 5 February 28, 2019 March 04, 2019 1:00am March 05, 2019 1:08am Start: 02-28-2019 End: 03-05-2019 Hydrocodone-Acetaminophen Di scontinued 1 EACH PO EVERY 4 HOURS NEEDED 14 5 February 28, 2019 March 05, 2019 1:08am Start: 02-19-2019 End: 02-26-2019 Hydrocodone-Acetaminophen 1 TABLET tablet Discontinued 1 - 2 {tbl} PO EVERY 6 HOURS NEEDED as needed for Pain Score 4-10/10 15 7 February 19, 2019 February 25, 2019 1:00am February 26, 2019 1:08am Start: 02-19-2019 End: 02-26-2019 take 1 tablet by mouth every six hours as needed Hydrocodone-Acetaminophen Discontinued 1 - 2 TABLET PO EVERY 6 HOURS NEEDED 15 7 February 19, 2019 February 26, 2019 1:08am Start: 01-24-2016 End: 04-01-2017 Hydrocodone-Acetaminophen 1 TABLET tablet Discontinued 1 - 2 {tbl} PO EVERY 4 HOURS NEEDED as needed for Pain January 24, 2016 1:00am April 01, 2017 10:36am Start: 01-24-2016 End: 04-01-2017 take 1 tablet by mouth every four hours as needed Hydrocodone-Acetaminophen Discontinued 1 - 2 TABLET PO EVERY 4 HOURS NEEDED January 24, 2016 1:00am April 01, 2017 10:36am acetaminophen 325 mg / oxyCODONE hydrochloride 5 mg oral tablet (9 sources) Opioid Agonist Start: 03-29-2019 End: 04-01-2019 Oxycodone-Acetaminophen 1 TABLET tablet Discontinued 1 {tbl} PO EVERY 6 HOURS NEEDED as needed for Pain 12 March 29, 2019 March 31, 2019 1:00am April 01, 2019 1:08am Start: 03-29-2019 End: 04-01-2019 take 1 tablet by mouth every six hours as needed Oxycodone-Acetaminophen Discontinued 1 TABLET PO EVERY 6 HOURS NEEDED 12 March 29, 2019 April 01, 2019 1:08am amoxicillin 875 mg / clavulanate 125 mg oral tablet (16 sources) Penicillin-class Antibacterial Start: 10-25-2022 End: 11-04-2022 Amoxicillin-Pot Clavulanate 875-125 mg tablet Discontinued 1 {tbl} PO Q12H 08 12October 25, 2022 12:00am November 03, 2022 12:00am November 04, 2022 12:15am Start: 10-25-2022 End: 11-04-2022 take 1 tablet by mouth every twelve hours Amoxicillin-Pot Clavulanate Discontinued 1 TABLET PO Q12H 08 12October 25, 2022 12:00am November 04, 2022 12:15am Start: 04-01-2017 End: 04-11-2017 Amoxicillin-Pot Clavulanate (Augmentin) 875-125 mg tablet Discontinued 1 {tbl} PO Q12H 08 12April 01, 2017 1:00am April 10, 2017 1:00am April 11, 2017 1:05am melatonin (2 sources) Start: 09-29-2016 [facility] MELATONIN CAP[facility] as directed MELATONIN CAPS [id number] Tere Lucas Abimaelflorecita RAILROAD SUPERVISOR OF ENGINES melatonin 1 mg / pyridoxine 10 mg oral tablet (9 sources) Start: 09-09-2013 End: 04-01-2017 take 1 tablet by mouth at bedtime Melatonin-Pyridoxine Hcl (B6) 1 EACH tablet Discontinued 1 NMA PO AT BEDTIME September 09, 2013 12:00am April 01, 2017 10:36am Start: 09-09-2013 End: 04-01-2017 Melatonin-Pyridoxine Hcl (B6 ) Discontinued 1 EACH PO AT BEDTIME September 09, 2013 12:00am April 01, 2017 10:36am Drug Treatment Unknown - unk xandern (1 source) No information a vailable. Problems Active Problems Problem Classification Problem Date Documented Da te Episodic/Chronic Calculus of urinary tract (10 sources) Kidney stone; Translations: [Calculus of kidney] Onset: 5 02-18-2019 Episodic E Codes: Fall (9 sources) Fall (on) (from) other stairs and steps, initial encounter; Translations: [Fall down stairs] 02-02-2020 Episodic Esophageal disorders (18 sources) Chest pain; Translations: [Gastro-esophageal reflux disease without esophagitis] 01-12-2019 Chronic Essential hypertension (1 source) Essential (primary) hypertension; Translations: [Essential (primary) hypertension] Onset: 5 Chronic Inflammation; infection of eye (except that caused by tuberculosis or sexually transmitteddisease) (7 sources) Hordeolum externum of lower eyelid of right eye; Translations: [Hordeolum externum right lower eyelid] 09-08-2022 Episodic Other circulatory disease (9 sources) Elevated blood-pressure reading without diagnosis of hypertension; Translations: [Elevated blood-pressure reading, without diagnosis of hypertension] 02-28-2019 Episodic Other diseases of kidney and ureters (2 sources) Hydronephrosis; Translations: [Hydronephrosis with renal and ureteral calculous obstruction] 02-28-2019 Episodic Other diseases of kidney and ureters (7 sources) Hydronephrosis with renal and ureteral calculous obstruction; Translations: [Hydronephrosis with urinary obstruction due to renal calculus] 02-28-2019 Episodic Other gastrointestinal disorders (9 sources) History of gastroesophageal reflux disease; Translations: [Personal history of other diseases of the digestive system] 02-18-2019 Episodic Other injuries and conditions due to external causes (9 sources) Injury of head; Translations: [Unspecified injury of head, initial encounter] 02-02-2020 Episodic Other nutritional; endocrine; and metabolic disorders (9 sources) Body mass index 30+ - obesity; Translations: [Obesity, unspecified] 02-28-2019 Chronic Other screening for suspected conditions (not mental disorders or infectious disease) (1 source) No current problems or disability 09-29-2016 Other upper respiratory infections (9 sources) Acute sinusitis; Translations: [Acute sinusitis, unspecified] 04-01-2017 Episodic Otitis media and related conditions (8 sources) Acute right otitis media; Translations: [Otitis media, unspecified, right ear] 10-25-2022 Episodic Superficial injury; contusion (9 sources) Contusion of lower limb; Translations: [Contusion of right lower leg, initial encounter] 02-02-2020 Episodic Unclassified (1 source) Cough, unspecified; Translations: [Cough, unspecified] Onset: Viral infection (7 sources) Herpes simplex type 1 infection; Translations: [Herpesviral infection, unspecified] 09-08-2022 Episodic Past or Other Problems Problem Classification Problem Date Documented Da te Episodic/Chronic Allergic reactions (2 sources) Contact dermatitis due to plants; Translations: [Unspecified contact dermatitis due to plants, except food] Onset: 09-29-2016 09-29-2016 Episodic Other screening for suspected conditions (not mental disorders or infectious disease) (1 source) Encounter for screening mammogram for malignant neoplasm of breast; Translations: [Encounter for screening mammogram for malignant neoplasm of breast] Onset: 02-25-2024 Episodic Results Test Name Value Interpretation Reference Range Facility Abdomen Single Viewon 2024 Abdomen Single View [facility] Imaging Services [address] [place] [address] Abdomen Single View MR#: [id number] Acct: [id number] Name: BRENDA BENITEZ Rep #: [id number] : 1955 F 69 From: Keshawn Rodriguez MD PCP: VEE Gray Status: REG CLI Study: Abdomen Single View Date of Exam: 06/30/24 Exam# [id number] Ordering Dr: Garfield Mora MD PROCEDURE: ABDOMEN SINGLE VIEW 06/30/2024 REASON FOR EXAM: CALCULUS OF KIDNEY TECHNIQUE: Single view abdomen. 2 images to include the entire abdomen and pelvis COMPARISON: 10/18/2020 FINDINGS: A couple of small faint density suggested at the central aspect of the left renal shadow may represent stones or possible bowel material. Pelvic calcifications are not significantly changed since the prior. No gaseous distention of bowel. Lower lumbar facet degenerative changes. RAD/Abdomen Single View IMPRESSION: A couple of small faint density suggested at the central aspect of the left renal shadow may represent stones or possible bowel material. Reading Location: [facility] CC: VEE Overton; Dr. Garfield Mora MD [employer] Office Instructor: Signed Normal [facility] Absolute lymphocyte countOrd ered By: Chayo Overton on 06-03-2024 Lymphocytes Auto (Unsp spec) [#/Vol] 1.83 10*3/uL 0.83-4.51 [facility] Absolute neutrophil countOrd ered By: Chayo Overton on 06-03-2024 Neutrophils (Bld) [#/Vol] 6.2 10*3/uL 2.0-7.7 [facility] Anion gap in Serum or Plasma Ordered By: Chayo Overton on 06-03-2024 Anion gap [Moles/Vol] 12 mmol/L 07-03 [facility] Automated lymphocyte count a s percentage of total leukocytesOrdered By: Chayo Overton on 06-03-2024 Lymphocytes/100 WBC Auto (Unsp spec) 20.4 % 19-41 [facility] BUN/creatinine ratioOrdered By: Chayo Overton on 06-03-2024 Urea nitrogen/Creatinine [Mass ratio] 21.1 mg/mg High 10-20 [facility] Basophil percentageOrdered B y: Chayo Overton on 06-03-2024 Basophils/100 WBC (Bld) 1.1 % High 0-1 [facility] Bilirubin, totalOrdered By: Chayo Overton on 06-03-2024 Bilirubin [Mass/Vol] 0.54 mg/dL 0.00-1.30 [facility] CBC W/Diff, Automatedon 05-20 Absolute Lymph 1.83 X10 3/uL Normal 0.83-4.51 [facility] Comment on above: Performed By: #### L 100.0100, L506.1001, L503.6550, L500.4100, L503.6150, L500.4050 #### [facility] [address] [place], [address] Absolute Neut 6.2 X10 3/uL Normal 2.0-7.7 [facility] Comment on above: Performed By: #### L 100.0100, L506.1001, L503.6550, L500.4100, L503.6150, L500.4050 #### [facility] [address] [place], [address] Basophils/100 WBC (Bld) 1.1 % High 0-1 [facility] Comment on above: Performed By: #### L 100.0100, L506.1001, L503.6550, L500.4100, L503.6150, L500.4050 #### [facility] [address] [place], [address] Eosinophils/100 WBC (Bld) 2.5 % Normal 0-5 [facility] Comment on above: Performed By: #### L 100.0100, L506.1001, L503.6550, L500.4100, L503.6150, L500.4050 #### [facility] [address] [place], [address] Erythrocyte distribution width (RBC) [Ratio] 15.6 % High 11.6-14.6 [facility] Comment on above: Performed By: #### L 100.0100, L506.1001, L503.6550, L500.4100, L503.6150, L500.4050 #### [facility] [address] [place], [address] Hematocrit (Bld) [Volume fraction] 43.7 % Normal 37-47 [facility] Comment on above: Performed By: #### L 100.0100, L506.1001, L503.6550, L500.4100, L503.6150, L500.4050 #### [facility] [address] [place], [address] Hemoglobin (Bld) [Mass/Vol] 14.2 g/dL Normal 12.0-15.0 [facility] Comment on above: Performed By: #### L 100.0100, L506.1001, L503.6550, L500.4100, L503.6150, L500.4050 #### [facility] [address] [place], [address] IG% 0.300 Normal 0.0-0.9 [facility] Comment on above: Result Comment: IG% - Immature Granulocytes (promyelocytes, myelocytes and metamyelocytes) > 1% indicates that a LEFT SHIFT is Present. Performed By: #### L 100.0100, L506.1001, L503.6550, L500.4100, L503.6150, L500.4050 #### [facility] [address] [place], [address] Lymphocytes/100 WBC (Bld) 20.4 % Normal 19-41 [facility] Comment on above: Performed By: #### L 100.0100, L506.1001, L503.6550, L500.4100, L503.6150, L500.4050 #### [facility] [address] [place], [address] MCH (RBC) [Entitic mass] 26.1 pg Low 27.0-32.0 [facility] Comment on above: Performed By: #### L 100.0100, L506.1001, L503.6550, L500.4100, L503.6150, L500.4050 #### [facility] [address] [place], [address] MCHC (RBC) [Mass/Vol] 32.5 g/dL Normal 32-36 [facility] Comment on above: Performed By: #### L 100.0100, L506.1001, L503.6550, L500.4100, L503.6150, L500.4050 #### [facility] [address] [place], [address] MCV (RBC) [Entitic vol] 80.2 fL Low 81-[address] [facility] Comment on above: Performed By: #### L 100.0100, L506.1001, L503.6550, L500.4100, L503.6150, L500.4050 #### [facility] [address] [place], [address] Monocytes/100 WBC (Bld) 6.7 % Normal 0-10 [facility] Comment on above: Performed By: #### L 100.0100, L506.1001, L503.6550, L500.4100, L503.6150, L500.4050 #### [facility] [address] [place], [address] Neutrophils/100 WBC (Bld) 69.0 % Normal 47-70 [facility] Comment on above: Performed By: #### L 100.0100, L506.1001, L503.6550, L500.4100, L503.6150, L500.4050 #### [facility] [address] [place], [address] Nucleated RBC (Bld) [#/Vol] 0 10*3/uL Normal 0-5 [facility] Comment on above: Performed By: #### L 100.0100, L506.1001, L503.6550, L500.4100, L503.6150, L500.4050 #### [facility] [address] [place], [address] Platelet mean volume (Bld) [Entitic vol] 9.9 fL Normal 6.2-12.0 [facility] Comment on above: Performed By: #### L 100.0100, L506.1001, L503.6550, L500.4100, L503.6150, L500.4050 #### [facility] [address] [place], [address] Platelets (Bld) [#/Vol] 401 10*3/uL Normal 150-450 [facility] Comment on above: Performed By: #### L 100.0100, L506.1001, L503.6550, L500.4100, L503.6150, L500.4050 #### [facility] [address] [place], [address] RBC (Bld) [#/Vol] 5.45 10*6/uL High 4.2-5.4 [facility] Comment on above: Performed By: #### L 100.0100, L506.1001, L503.6550, L500.4100, L503.6150, L500.4050 #### [facility] [address] [place], [address] RDW SD 44.9 fl High 35.1-43.9 [facility] Comment on above: Performed By: #### L 100.0100, L506.1001, L503.6550, L500.4100, L503.6150, L500.4050 #### [facility] [address] [place], [address] WBC (Bld) [#/Vol] 9.0 10*3/uL Normal 4.4-11.0 [facility] Comment on above: Performed By: #### L 100.0100, L506.1001, L503.6550, L500.4100, L503.6150, L500.4050 #### [facility] [address] [place], [address] Calculated very low density lipoprotein (VLDL) cholesterol measurementOrdered By: Chayo Overton on 06-03-2024 Calculated very low density lipoprotein (VLDL) cholesterol measurement 17 mg/dL -40 [facility] VLDL Cholesterol 17 mg/dL - [facility] Carbon dioxide, total [Moles /volume] in Central venous bloodOrdered By: Chayo Overton on 06-03-2024 CO2 [Moles/Vol] 22.6 mmol/L 21.0-32.0 [facility] Chloride assayOrdered By: Ra cooper Overton on 06-03-2024 Chloride [Moles/Vol] 104 mmol/L 98-108 [facility] Comprehensive Metabolic Prof ilon 06-03-2024 Albumin [Mass/Vol] 4.2 g/dL Normal 3.4-4.8 [facility] Comment on above: Performed By: #### L 100.0100, L506.1001, L503.6550, L500.4100, L503.6150, L500.4050 #### [facility] [address] [place], [address] Albumin/Globulin [Mass ratio] 1.2 {ratio} Normal 0.9-2.4 [facility] Comment on above: Performed By: #### L 100.0100, L506.1001, L503.6550, L500.4100, L503.6150, L500.4050 #### [facility] [address] [place], [address] ALK PHOS 105 U/L High 35-104 [facility] Comment on above: Performed By: #### L 100.0100, L506.1001, L503.6550, L500.4100, L503.6150, L500.4050 #### [facility] [address] [place], [address] ALT [Catalytic activity/Vol] 58 U/L High <=34 [facility] Comment on above: Performed By: #### L 100.0100, L506.1001, L503.6550, L500.4100, L503.6150, L500.4050 #### [facility] [address] [place], [address] AST [Catalytic activity/Vol] 43 U/L High <=31 [facility] Comment on above: Performed By: #### L 100.0100, L506.1001, L503.6550, L500.4100, L503.6150, L500.4050 #### [facility] [address] [place], [address] Bilirubin [Mass/Vol] 0.54 mg/dL Normal 0.00-1.30 [facility] Comment on above: Performed By: #### L 100.0100, L506.1001, L503.6550, L500.4100, L503.6150, L500.4050 #### [facility] [address] [place], [address] BUN/CRE 21.1 RATIO High 10-20 [facility] Comment on above: Performed By: #### L 100.0100, L506.1001, L503.6550, L500.4100, L503.6150, L500.4050 #### [facility] [address] [place], [address] Calcium [Mass/Vol] 9.7 mg/dL Normal 7.6-11.0 [facility] Comment on above: Performed By: #### L 100.0100, L506.1001, L503.6550, L500.4100, L503.6150, L500.4050 #### [facility] [address] [place], [address] Chloride [Moles/Vol] 104 mmol/L Normal 98-108 [facility] Comment on above: Performed By: #### L 100.0100, L506.1001, L503.6550, L500.4100, L503.6150, L500.4050 #### [facility] [address] [place], [address] CO2 [Moles/Vol] 22.6 mmol/L Normal 21.0-32.0 [facility] Comment on above: Performed By: #### L 100.0100, L506.1001, L503.6550, L500.4100, L503.6150, L500.4050 #### [facility] [address] [place], [address] Creatinine [Mass/Vol] 0.70 mg/dL Normal 0.70-1.20 [facility] Comment on above: Performed By: #### L 100.0100, L506.1001, L503.6550, L500.4100, L503.6150, L500.4050 #### [facility] [address] [place], [address] GAP 12 Normal 5-15 [facility] Comment on above: Performed By: #### L 100.0100, L506.1001, L503.6550, L500.4100, L503.6150, L500.4050 #### [facility] [address] [place], [address] GFR/1.73 sq M.predicted among non-blacks MDRD (S/P/Bld) [Vol rate/Area] 92 mL/min/{1.73_m2} Normal >60 [facility] Comment on above: Result Comment: mL/m in/1.73m2 CKD-EPI Creatinine Equation (2020) Performed By: #### L 100.0100, L506.1001, L503.6550, L500.4100, L503.6150, L500.4050 #### [facility] [address] [place], [address] Globulin (S) [Mass/Vol] 3.4 g/dL Normal 2.2-4.[address] [facility] Comment on above: Performed By: #### L 100.0100, L506.1001, L503.6550, L500.4100, L503.6150, L500.4050 #### [facility] [address] [place], [address] Glucose [Mass/Vol] 104 mg/dL High 70-99 [facility] Comment on above: Performed By: #### L 100.0100, L506.1001, L503.6550, L500.4100, L503.6150, L500.4050 #### [facility] [address] [place], [address] Potassium [Moles/Vol] 4.1 mmol/L Normal 3.3-5.1 [facility] Comment on above: Performed By: #### L 100.0100, L506.1001, L503.6550, L500.4100, L503.6150, L500.4050 #### [facility] [address] [place], [address] Sodium [Moles/Vol] 139 mmol/L Normal 133-145 [facility] Comment on above: Performed By: #### L 100.0100, L506.1001, L503.6550, L500.4100, L503.6150, L500.4050 #### [facility] [address] [place], [address] T PROT 7.5 g/dL Normal 5.9-8.4 [facility] Comment on above: Performed By: #### L 100.0100, L506.1001, L503.6550, L500.4100, L503.6150, L500.4050 #### [facility] [address] [place], [address] Urea nitrogen [Mass/Vol] 15 mg/dL Normal 4-19 [facility] Comment on above: Performed By: #### L 100.0100, L506.1001, L503.6550, L500.4100, L503.6150, L500.4050 #### [facility] [address] [place], [address] Eosinophil percentageOrdered By: Chayo Overton on 06-03-2024 Eosinophils/100 WBC (Bld) 2.5 % 0-5 [facility] Erythrocyte distribution wid th (RBC) [Ratio]Ordered By: Chayo Overton on 06-03-2024 Erythrocyte distribution width (RBC) [Entitic vol] 44.9 fL High 35.1-43.9 [facility] Erythrocyte distribution wid th ratioOrdered By: Chayo Overton on 06-03-2024 Erythrocyte distribution width (RBC) [Ratio] 15.6 % High 11.6-14.6 [facility] Erythrocyte distribution wid th standard deviationOrdered By: Chayo Wili on 06-03-2024 Erythrocyte distribution width (RBC) [Ratio] 44.9 fl High 35.1-43.9 [facility] Ferritinon 06-03-2024 Ferritin [Mass/Vol] 257 ng/mL Normal 22-378 [facility] Comment on above: Performed By: #### L 100.0100, L506.1001, L503.6550, L500.4100, L503.6150, L500.4050 #### [facility] [address] [place], [address] GFR/1.73 sq M.predicted marty g non-blacks MDRD (S/P/Bld) [Vol rate/Area]Ordered By: Chayo Overton on 06-03-2024 Estimated GFR (MDRD) Non-Af Amer 92 >60 [facility] Comment on above: mL/min/1.73m2 CKD-EP I Creatinine Equation (2020) Glomerular filtration rate ( GFR) estimation/1.73 sq m using serum, plasma, or whole bOrdered By: Chayo Overton on 06-03-2024 GFR/1.73 sq M.predicted among non-blacks MDRD (S/P/Bld) [Vol rate/Area] 92 mL/min/{1.73_m2} >60 [facility] Comment on above: mL/min/1.73m2 CKD-EP I Creatinine Equation (2020) Hematocrit Auto (Bld) [Volum e fraction]Ordered By: Chayo Overton on 06-03-2024 Hematocrit (Bld) [Volume fraction] 43.7 % 37-47 [facility] Hemoglobin measurementOrdere d By: Chayo Overton on 06-03-2024 Hemoglobin (Bld) [Mass/Vol] 14.2 g/dL 12.0-15.0 [facility] Immature granulocytes/100 WB C Auto (Bld)Ordered By: Chayo Overton on 06-03-2024 Immature granulocytes/100 WBC (Bld) 0.300 % 0.0-0.9 [facility] Comment on above: IG% - Immature Granu locytes (promyelocytes, myelocytes and metamyelocytes) > 1% indicates that a LEFT SHIFT is Present. Ironon 06-03-2024 Iron [Mass/Vol] 92 ug/dL Normal 50-170 [facility] Comment on above: Performed By: #### L 100.0100, L506.1001, L503.6550, L500.4100, L503.6150, L500.4050 #### [facility] [address] [place], [address] Iron (Unsp spec) [Mass/Mass] Ordered By: Chayo Overton on 06-03-2024 Iron [Mass/Vol] 92 ug/dL 50-170 [facility] Iron measurement (mass/mass) Ordered By: Chayo Overton on 06-03-2024 Iron (Unsp spec) [Mass/Mass] 92 ug/dL 50-170 [facility] LDL calc ser/plasOrdered By: Chayoyang Overton on 06-03-2024 Cholesterol in LDL [Mass/Vol] 174 mg/dL [facility] Comment on above: Kowihxdqda=711-345 m g/dL & Higher Qfxk=994 mg/dL or greater LDL Cholesterol, Calculated 174 mg/dL [facility] Comment on above: Wnrdehpmsx=084-463 m g/dL & Higher Tmlz=421 mg/dL or greater Laboratory - Chemistry and C hemistry - challengeOrdered By: Chayo Overton on 06-03-2024 AST [Catalytic activity/Vol] 43 U/L High <32 [facility] Lipid Profileon 06-03-2024 CHOL:HDL 3.75 Normal [facility] Comment on above: Performed By: #### L 100.0100, L506.1001, L503.6550, L500.4100, L503.6150, L500.4050 #### [facility] [address] [place], [address] Cholesterol [Mass/Vol] 259 mg/dL High <=200 [facility] Comment on above: Result Comment: Chol esterol level, Desirable <200 mg/dL Borderline high cholesterol 200-239 mg/dL High cholesterol >=240 mg/dL Recommendations of the NCEP Adult Treatment Panel for the following risk-cutoff thresholds for the [place] population. Performed By: #### L 100.0100, L506.1001, L503.6550, L500.4100, L503.6150, L500.4050 #### [facility] [address] [place], [address] Cholesterol in HDL [Mass/Vol] 69 mg/dL Normal [facility] Comment on above: Result Comment: [place] on[place] Cholesterol Education Program (NCEP) guidelines: <40 mg/dL: Low HDL-cholesterol (major risk factor for CHD) >= 60 mg/dL: High HDL-cholesterol (negative risk factor for CHD) HDL-cholesterol is affected by a number of factors, e.g. smoking, exercise, hormones, sex and age. Performed By: #### L 100.0100, L506.1001, L503.6550, L500.4100, L503.6150, L500.4050 #### [facility] [address] [place], [address] Cholesterol in LDL [Mass/Vol] 174 mg/dL Normal [facility] Comment on above: Result Comment: Bord glploo=932-942 mg/dL Higher Pbah=527 mg/dL or greater Performed By: #### L 100.0100, L506.1001, L503.6550, L500.4100, L503.6150, L500.4050 #### [facility] [address] [place], [address] Cholesterol in VLDL [Mass/Vol] 17 mg/dL Normal 5-40 [facility] Comment on above: Performed By: #### L 100.0100, L506.1001, L503.6550, L500.4100, L503.6150, L500.4050 #### [facility] [address] [place], [address] Triglyceride [Mass/Vol] 83 mg/dL Normal [facility] Comment on above: Result Comment: The drugs N-Acetylcysteine and Metamizole may falsely depress this assay. Normal range: <150 mg/dL Borderline High: 150-199 mg/dL High: 200-499 mg/dL Very High: >500 mg/dL Performed By: #### L 100.0100, L506.1001, L503.6550, L500.4100, L503.6150, L500.4050 #### [facility] [address] [place], [address] Lymphocytes Auto (Unsp spec) [#/Vol]Ordered By: Chayo Overton on 06-03-2024 Lymphocytes (Bld) [#/Vol] 1.83 10*3/uL 0.83-4.51 [facility] Lymphocytes/100 WBC Auto (Un sp spec)Ordered By: Chayo Overton on 06-03-2024 Lymphocytes/100 WBC (Bld) 20.4 % 19-41 [facility] MCV (mean corpuscular volume ) determinationOrdered By: Chayo Overton on 06-03-2024 MCV (RBC) [Entitic vol] 80.2 fL Low 81-99 [facility] Mean corpuscular hemoglobin (MCH) determinationOrdered By: Chayo Overton on 06-03-2024 MCH (RBC) [Entitic mass] 26.1 pg Low 27.0-32.0 [facility] Mean corpuscular hemoglobin concentration (MCHC) determinationOrdered By: Chayo Overton on 06-03-2024 MCHC (RBC) [Mass/Vol] 32.5 g/dL 32-36 [facility] Mean platelet volume determi nationOrdered By: Chayo Overton on 06-03-2024 Platelet mean volume (Bld) [Entitic vol] 9.9 fL 6.2-12.0 [facility] Monocyte percentageOrdered B y: Chayo Overton on 06-03-2024 Monocytes/100 WBC (Bld) 6.7 % 0-10 [facility] Neutrophil percentageOrdered By: Chayo Overton on 06-03-2024 Neutrophils/100 WBC (Bld) 69.0 % 47-70 [facility] Nucleated red blood cell per centageOrdered By: Chayo Overton on 06-03-2024 Nucleated RBC/100 WBC (Bld) [Ratio] 0 % 0-5 [facility] Platelet countOrdered By: Ra cooper Overton on 06-03-2024 Platelets (Bld) [#/Vol] 401 10*3/uL 150-450 [facility] Potassium (Unsp spec) [Mass/ Vol]Ordered By: Chayo Overton on 06-03-2024 Potassium [Moles/Vol] 4.1 mmol/L 3.3-5.1 [facility] Potassium measurement (mass/ volume)Ordered By: Chayo Overton on 06-03-2024 Potassium (Unsp spec) [Mass/Vol] 4.1 mmol/L 3.3-5.1 [facility] RBC Auto (Bld) [#/Vol]Ordere d By: Chayo Overton on 06-03-2024 RBC (Bld) [#/Vol] 5.45 10*6/uL High 4.2-5.4 [facility] Screening total cholesterol/ high density lipoprotein (HDL) cholesterol ratioOrdered By: Chayo Overton on 06-03-2024 Cholesterol.total/Choles terol in HDL [Mass ratio] 3.75 {ratio} [facility] Serum creatinine measurement (mass/volume)Ordered By: Chayo Overton on 06-03-2024 Creatinine [Mass/Vol] 0.70 mg/dL 0.70-1.20 [facility] Serum globulin measurementOr dered By: Chayo Overton 06-03-2024 Globulin (S) [Mass/Vol] 3.4 g/dL 2.2-4.2 [facility] Serum glucose measurement (m ass/volume)Ordered By: Chayo Overton 06-03-2024 Glucose [Mass/Vol] 104 mg/dL High 70-99 [facility] Serum or plasma alanine morillo otransferase (ALT) measurementOrdered By: Chayo Overton 06-03-2024 ALT [Catalytic activity/Vol] 58 U/L High <35 [facility] Serum or plasma albumin dipika urement (mass/volume)Ordered By: Chayo Overton on 06-03-2024 Albumin [Mass/Vol] 4.2 g/dL 3.4-4.8 [facility] Serum or plasma albumin/glob ulin mass ratioOrdered By: Chayo Overton 06-03-2024 Albumin/Globulin [Mass ratio] 1.2 {ratio} 0.9-2.4 [facility] Serum or plasma alkaline paula sphatase measurementOrdered By: Chayo Overton 06-03-2024 ALP [Catalytic activity/Vol] 105 U/L High 35-104 [facility] Serum or plasma calcium dipika urement (mass/volume)Ordered By: Chayo Overton on 06-03-2024 Calcium [Mass/Vol] 9.7 mg/dL 7.6-11.0 [facility] Serum or plasma cholesterol in HDL measurement (mass/volume)Ordered By: Chayo Overton on 06-03-2024 Cholesterol in HDL [Mass/Vol] 69 mg/dL >40 [facility] Comment on above: National Cholesterol Education Program (NCEP) guidelines:<40 mg/dL: Low HDL-cholesterol (major risk factor for CHD)>= 60 mg/dL: High HDL-cholesterol (negative risk factor for CHD)HDL-cholesterol is affected by a number of factors, e.g. smoking, exercise, hormones, sex and age. Serum or plasma cholesterol measurement (mass/volume)Ordered By: Chayo Overton on 06-03-2024 Cholesterol [Mass/Vol] 259 mg/dL High <201 [facility] Comment on above: Cholesterol level, D esirable <200 mg/dLBorderline high cholesterol 200-239 mg/dLHigh cholesterol >=240 mg/dLRecommendations of the NCEP Adult Treatment Panel for the following risk-cutoff thresholds for the [place] population. Serum or plasma ferritin eduin surement (mass/volume)Ordered By: Chayo Overton on 06-03-2024 Ferritin [Mass/Vol] 257 ng/mL 22-378 [facility] Serum or plasma urea nitroge n measurement (mass/volume)Ordered By: Chayo Overton on 06-03-2024 Urea nitrogen [Mass/Vol] 15 mg/dL 4-19 [facility] Sodium levelOrdered By: Arabella Overton on 06-03-2024 Sodium [Moles/Vol] 139 mmol/L 133-145 [facility] Total proteinOrdered By: Shelton Overton on 06-03-2024 Protein [Mass/Vol] 7.5 g/dL 5.9-8.4 [facility] Triglycerides measurementOrd ered By: Chayo Overton on 06-03-2024 Triglyceride [Mass/Vol] 83 mg/dL <199 [facility] Comment on above: The drugs N-Acetylcy steine and Metamizole may falsely depress this assay. Normal range: <150 mg/dLBorderline High: 150-199 mg/dLHigh: 200-499 mg/dLVery High: >500 mg/dL Vitamin D, 25-hydroxyOrdered By: Chayo Overton on 06-03-2024 Vitamin D 25-Hydroxy 41.6 ng/mL 30-100 [facility] Comment on above: Vitamin D StatusDefi ciency: <20 ng/mL (50nmol/L)Insufficiency: 20-30 ng/mL (50-75 nmol/L)Sufficiency: 30-100 ng/mL (75-250 nmol/L)Toxicity: >100 ng/mL (>250 nmol/L) Vitamin D,25 Hydroxyon 06-03 Vitamin D 25-OH 41.6 ng/mL Normal 30-100 [facility] Comment on above: Result Comment: Nidia min D Status Deficiency: <20 ng/mL (50nmol/L) Insufficiency: 20-30 ng/mL (50-75 nmol/L) Sufficiency: 30-100 ng/mL (75-250 nmol/L) Toxicity: >100 ng/mL (>250 nmol/L) Performed By: #### L 100.0100, L506.1001, L503.6550, L500.4100, L503.6150, L500.4050 #### [facility] [address] [facility] [place], [address] White blood cell (WBC) count Ordered By: Chayo Overton on 06-03-2024 WBC (Bld) [#/Vol] 9.0 10*3/uL 4.4-11.0 [facility] Chest PA and Lateralon 02-17 Chest PA and Lateral [facility] Imaging Services [address] [place] [address] Chest PA and Lateral MR#: [id number] Acct: [id number] Name: BRENDA BENITEZ Rep #: [id number] : 1955 F 68 From: Adriano Chapa MD PCP: VEE Gray Status: REG CLI Study: Chest PA and Lateral Date of Exam: 02/18/24 Exam# [id number] Ordering Dr: Chayo Overton [id number] STUDY: X-RAY CHEST REASON FOR EXAM: Female, 68 years old. COUGH/RULE OUT PNEUMONIA TECHNIQUE: PA and lateral views of the chest. COMPARISON: None. FINDINGS: The lungs are clear and expanded. There is no demonstrated pleural abnormality. Normal size heart. Normal mediastinum and rufino. Normal visualized pulmonary arteries. Normal visualized aortic arch and descending thoracic aorta. Normal visualized thoracic spine. Normal visualized ribs, clavicles, and shoulders. There is no demonstrated abnormality of the visualized soft tissue structures of the upper abdomen. RAD/Chest PA and Lateral IMPRESSION: Normal x-ray examination of the chest. Electronically Signed: Adriano Chapa MD at 18:21 [facility] , CC: VEE Overton [employer] Instructor: Signed Normal [facility] Dexa Bone Density Studyon Dexa Bone Density Study [facility] Imaging Services [address] [place] [address] [id number] Dexa Bone Density Study MR#: [id number] Acct: [id number] Name: BRENDA BENITEZ Rep #: [id number] : 1955 F 68 From: Elmer peterson MD PCP: VEE Gray Status: REG [facility] Study: Dexa Bone Density Study Date of Exam: 01/22/24 Exam# [id number] Ordering Dr: Chayo OvertonC [id number] STUDY: DUAL ENERGY X-RAY ABSORPTIOMETRY / DXA REASON FOR EXAM: Female, 68 years old. M85.89 TECHNIQUE: Bone Mineral Density (BMD) measurements of lumbar spine and bilateral hips were obtained. COMPARISON: Comparison is made with prior study dated January 11, 2021. FINDINGS: Lumbar Spine (L1-L4): g/cm2 (0.865) / T-score (-1.3) / Z-score (0.7) Findings are suggestive of osteopenia with a low fracture risk. Left Femur Total: g/cm2 (0.894) / T-score (-0.4) / Z-score (1.1) Left Femoral Neck: g/cm2 (0.716) / T-score (-1.2) / Z-score (0.6) Right Femur Total: g/cm2 (0.804) / T-score (-1.1) / Z-score (0.4) Right Femoral Neck: g/cm2 (0.734) / T-score (-1.0) / Z-score (0.8) The T-Scores on the most recent prior examination were: Lumbar Spine (L1-L4): There has been improvement of bone density since the previous examination. Left Femur Total: which represents an improvement of 2.5%. Right Femur Total: which represents an improvement of 3.4%. BD/Dexa Bone Density Study IMPRESSION: The patient is considered osteopenic as outlined below according to World [place] Organization (WHO) criteria with a low fracture risk. There has been improvement of bone density since the previous examination. Reference Information: The T-score is the number of standard deviations above or below the standard which is normal for young adults at their peak bone mineral density. The World Health Organization (WHO) interprets the T-scores as follows: Above -1 Normal bone density Between -1 and -2.5 Osteopenia Equal to / or below -2.5 Osteoporosis As a practical clinical guideline, osteopenia may be graded as follows: Mild -1 through -1.5 Moderate -1.6 through -2.0 Severe -2.1 through -2.4 The Z-score is the number of standard deviations above or below age-matched controls. A Z-score of less than -1.5 would be considered abnormal. References: 1. NIH Osteoporosis and Related Bone Diseases www osteo.org 2. International Society for Clinical Densitometry www iscd.org 3. National Osteoporosis Foundation www nof.org Electronically Signed: Elmer Fox MD at 14:21 EST , CC: VEE Overton [employer] Office Instructor: Signed Normal [facility] SCRN MAMM (CAD)W/JELENA BILATo n 01-22-2024 SCRN MAMM (CAD)W/JELENA BILAT [facility] Imaging Services [address] [place] [address] SCRN MAMM (CAD)W/JELENA BILAT MR#: [id number] Acct: [id number] Name: BRENDA BENITEZ Rep #: [id number] : 1955 F 68 From: Elmer peterson MD PCP: VEE Gray Status: REG [facility] Study: SCRN MAMM (CAD)W/JELENA BILAT Date of Exam: 05/12 Exam# [id number] Ordering Dr: Chayo Overton [id number] MAMMOGRAPHY - BILATERAL SCREENING REASON FOR EXAM: Female, 68 years old. Routine annual screening examination. PERTINENT HISTORY: Non-contributory. TECHNIQUE: Digital bilateral breast jelena (3D mammographic acquisition) in the CC and MLO projections. 2-D mediolateral oblique (MLO) and craniocaudad (CC) views of both breasts were obtained. CAD: Full Field Digital Mammography with Computer Added Detection was performed. COMPARISON: Comparison is made with prior study January 17, 2023 and January 16, 2022. FINDINGS: Breast Composition: There are scattered areas of fibroglandular density. There are no dominant masses or suspicious calcifications. Stable bilateral axillary lymph nodes. No other significant abnormalities are identified. There has been no significant change since the prior study. BI/SCRN MAMM (CAD)W/JELENA BILAT IMPRESSION: Stable bilateral screening mammogram. Yearly follow-up mammogram recommended. (A) ASSESSMENT CATEGORY: BIRADS Category 2: Benign. A letter regarding these results will be sent to the patient by the facility within 30 days. Approximately 10% of breast cancers are not detected by mammography. A normal mammogram should not delay biopsy of a clinically suspicious abnormality. [id number] Electronically Signed: Elmer Fox MD at 14:26 EST Reading Location ID and State: [facility] / [place] , Service support , CC: VEE Overton Microsoft Office Instructor: Signed Normal [facility] Inital Evaluation (1) - PTon 07-27-2023 Inital Evaluation (1) - PT [facility] Physical Therapy [facility] [address] [place] [address]. [address] [place] [address] / REHABILITATION SERVICES INITIAL EVALUATION MR#: [id number] Acct: [id number] Name: BRENDA BENITEZ Rep #: [id number] : 1955 68 From: Silvia Haas MPT Referring Dr.: VEE Gray Status: REG R CR Insurance: MMO MEDICARE SELF PAY INSURANCE Patient's Visit Information Visit Information Visit Information: BRENDA BENITEZ is a 68 year old F referred to Physical Therapy by VEE Gray with a diagnosis of Dizziness and Giddiness. Date of Evaluation: 07/27/23 Physical Therapist: STEPHANIE Velarde Visit Plan Frequency: 1-2x /Week Duration: 4 Weeks Plan: 1-2X/ week for 4 weeks for L Eply and testing of FGA and VOR if needed Subjective Subjective: She has been to PCP and ENT is a month out. She gets spinning when she sits up in the middle of the night. She was out trying to do some weeding the other day and she was dizzy. The dizzy last 60 seconds or less. It is worst when she rolls to her L side. She is trying to avoid rolling to the L side. She gets ear pressure like feeling in the L ear. Sometimes when she first lays back she will feel dizzy. Objective Objective: + dizziness L Hallpike but no nystagmus that lasted less than 60 seconds. No dizziness or nystagmus with R Hallpike. Treated L Eply. Re tested L Hallpike and was negative for dizziness or nystagmus. When pt sat up and stood up and walked she felt a little off but was fine by the time she left. Balance/Special Test Scores Dizziness Score: 22 Goals Goal 1:: I HEP Goal Time Frame: 2-4 Weeks Goal 2:: Abolish dizziness desiree rolling in bed and supine to sit Goal Time Frame: 2-4 Weeks Goal 3:: Test FGA and VOR if needed Rehabilitation Potential Rehabilitation Potential: Good Anticipated Interventions Patient/Client Instruction: Educate patient on: Condition and Plan of Care For the Purpose of:: To improve gait and locomotor functions, To improve health of tissue, To improve balance, To improve safety with gait and To assume or resume ADL's Therapeutic Exercise to Include: Strength training, Endurance training, Balance training, Coordination, Postural training, Gait and locomotor training, Neuromotor development and Active ROM For the Purpose of:: To improve muscle performance and motor function, To improve ability to perform ADL's, To increase tolerance to activity/condition /position, To improve ability of physical actions for home/community/wor k/leisure, To improve gait and locomotor functions, To improve balance and To improve safety with gait Functional Training to Include: Gait training For the Purpose of:: To improve gait and locomotor functions and To improve safety with gait Text: Thank you for the opportunity to evaluate your patient. For Medicare and Medicare HMO plans, please review the plan of care and approve it. It will need to be FAXED BACK to us at [phone] for Medicare purposes. For Medicare only, by signing this I certify the plan of care. Please let me know if there are questions or concerns regarding this plan of care. Physician Signature: Date: ____ 07/27/23 1339 CC: VEE Overton Signed Normal [facility] Inital Evaluation (1) - PT [facility] Physical Therapy [facility] [address] [place] [address] [address] [place] [address] / REHABILITATION SERVICES INITIAL EVALUATION MR#: [id number] Acct: [id number] Name: BRENDA BENITEZ Rep #: [id number] : 1955 68 From: Silvia BRWON Referring Dr.: VEE Gray Status: REG R CR Insurance: MMO MEDICARE SELF PAY INSURANCE Patient's Visit Information Visit Information Visit Information: BRENDA BENITEZ is a 68 year old F referred to Physical Therapy by VEE Gray with a diagnosis of Dizziness and Giddiness. Date of Evaluation: 07/27/23 Physical Therapist: STEPHANIE Velarde Visit Plan Frequency: 1-2x /Week Duration: 4 Weeks Plan: 1-2X/ week for 4 weeks for L Eply and testing of FGA and VOR if needed Subjective Subjective: She has been to PCP and ENT is a month out. She gets spinning when she sits up in the middle of the night. She was out trying to do some weeding the other day and she was dizzy. The dizzy last 60 seconds or less. It is worst when she rolls to her L side. She is trying to avoid rolling to the L side. She gets ear pressure like feeling in the L ear. Sometimes when she first lays back she will feel dizzy. Objective Objective: + dizziness L Hallpike but no nystagmus that lasted less than 60 seconds. No dizziness or nystagmus with R Hallpike. Treated L Eply. Re tested L Hallpike and was negative for dizziness or nystagmus. When pt sat up and stood up and walked she felt a little off but was fine by the time she left. Balance/Special Test Scores Dizziness Score: 22 Goals Goal 1:: I HEP Goal Time Frame: 2-4 Weeks Goal 2:: Abolish dizziness desiree rolling in bed and supine to sit Goal Time Frame: 2-4 Weeks Goal 3:: Test FGA and VOR if needed Rehabilitation Potential Rehabilitation Potential: Good Anticipated Interventions Patient/Client Instruction: Educate patient on: Condition and Plan of Care For the Purpose of:: To improve gait and locomotor functions, To improve health of tissue, To improve balance, To improve safety with gait and To assume or resume ADL's Therapeutic Exercise to Include: Strength training, Endurance training, Balance training, Coordination, Postural training, Gait and locomotor training, Neuromotor development and Active ROM For the Purpose of:: To improve muscle performance and motor function, To improve ability to perform ADL's, To increase tolerance to activity/condition /position, To improve ability of physical actions for home/community/wor k/leisure, To improve gait and locomotor functions, To improve balance and To improve safety with gait Functional Training to Include: Gait training For the Purpose of:: To improve gait and locomotor functions and To improve safety with gait Text: Thank you for the opportunity to evaluate your patient. For Medicare and Medicare HMO plans, please review the plan of care and approve it. It will need to be FAXED BACK to us at [phone] for Medicare purposes. For Medicare only, by signing this I certify the plan of care. Please let me know if there are questions or concerns regarding this plan of care. Physician Signature: Date: ____ 07/27/23 1339 CC: MEDICAL MANAGEMENT SPECIALIST-Luis PeoplesChayoyang Overton Signed Normal [facility] Basophil percentageOrdered B y: Chayo Overton on 05-17-2023 Bilirubin [Mass/Vol] 0.60 mg/dL 0.20-1.00 [facility] Comment on above: For patients on eltr ombopag therapy, use of Dimension [place] TBIL is not recommended. Chloride [Moles/Vol] 107 mmol/L 98-107 [facility] Cholesterol [Mass/Vol] 237 mg/dL <200 [facility] Comment on above: <200 mg/dL Desirable 200-240 mg/dL Borderline >240 mg/dL High Risk Glucose [Mass/Vol] 96 mg/dL 74-106 [facility] Potassium [Moles/Vol] 4.3 mmol/L 3.5-5.1 [facility] Protein [Mass/Vol] 7.1 g/dL 6.4-8.2 [facility] Sodium [Moles/Vol] 138 mmol/L 136-145 [facility] Triglyceride [Mass/Vol] 78 mg/dL <199 [facility] Comment on above: The drugs N-Acetylcy steine and Metamizole may falsely depress this assay.Serum Triglycerides Reference Interval Normal <150 mg/dL Borderline high 150 - 199 mg/dL High 200 - 499 mg/dL Very High > or = 500 mg/dL Laboratory - Chemistry and C hemistry - challengeOrdered By: Chayo Overton on 05-17-2023 Albumin/Globulin [Mass ratio] 0.9 {ratio} 0.9-2.4 [facility] ALP [Catalytic activity/Vol] 96 U/L 45-117 [facility] ALT [Catalytic activity/Vol] 28 U/L 13-56 [facility] Cholesterol in HDL [Mass/Vol] 70 mg/dL >40 [facility] Comment on above: The drugs N-Acetylcy steine and Metamizole may falsely depress this assay. Reference Range HDL <40 mg/dL Low HDL Cholesterol HDL >or= 60 mg/dL High HDL Cholesterol Cholesterol in LDL [Mass/Vol] 151 mg/dL 0-130 [facility] CO2 [Moles/Vol] 27.0 mmol/L 21.0-32.0 [facility] Globulin (S) [Mass/Vol] 3.8 g/dL 2.2-4.2 [facility] Urea nitrogen/Creatinine [Mass ratio] 27.8 mg/mg 10-20 [facility] No Panel InformationOrdered By: Chayo Overton on 05-17-2023 Estimated GFR (MDRD) Amer 116 mL/min >60 [facility] Comment on above: GFR Calc Estimated GFR (MDRD) Non-Af Amer 96 mL/min >60 [facility] Comment on above: Non- GFR Calc VLDL Cholesterol 16 mg/dL 5-40 [facility] Serum or plasma calcium dipika urement (mass/volume)Ordered By: Chayo Overton on 05-17-2023 Calcium [Mass/Vol] 9.0 mg/dL 8.5-10.1 [facility] Serum or plasma creatinine m easurement (mass/volume)Ordered By: Chayo Overton on 05-17-2023 Creatinine [Mass/Vol] 0.65 mg/dL 0.55-1.02 [facility] Comment on above: The validity of the calculated GFR & GFRAA in patients over 70 years has not been determined. Clinical correlation is essential. Serum or plasma thyroid stim ulating hormone (TSH) measurement (units/volume)Ordered By: Chayo Overton on 05-17-2023 TSH Qn 1.55 uIU/mL 0.358-3.74 [facility] Serum or plasma urea nitroge n measurement (mass/volume)Ordered By: Chayo Overton on 05-17-2023 Urea nitrogen [Mass/Vol] 18 mg/dL 7-18 [facility] Thin prep Papanicolaou smear with manual screeningOrdered By: [place] Wili on 05-17-2023 Thin prep Papanicolaou smear with manual screening 3.3 g/dL 3.2-5.0 [facility] Thin prep Papanicolaou smear with manual screening 17 U/L 15-37 [facility] Thin prep Papanicolaou smear with manual screening 4 5-15 [facility] Basophil percentageOrdered B y: Garfield Mora on 04-24-2023 Chloride [Moles/Vol] 107 mmol/L 98-107 [facility] Glucose [Mass/Vol] 122 mg/dL 74-106 [facility] Comment on above: Fasting Glucose resu lt from 100 to 125 mg/dL suggests IMPAIRED HOMEOSTASIS per A.D.A. criteria. Hemoglobin (Bld) [Mass/Vol] 13.4 g/dL 12.0-15.0 [facility] Potassium [Moles/Vol] 3.7 mmol/L 3.5-5.1 [facility] Comment on above: Slight Hemolysis, Re sult may be falsely increased. Sodium [Moles/Vol] 139 mmol/L 136-145 [facility] WBC (Bld) [#/Vol] 10.1 10*3/uL 4.4-11.0 [facility] Determination of erythrocyte mean corpuscular volume (MCV)Ordered By: Garfield Mora on 04-24-2023 MCV (RBC) [Entitic vol] 81.1 fL 81-[address] [facility] Erythrocyte distribution wid th ratioOrdered By: Garfield Mora on 04-24-2023 Erythrocyte distribution width (RBC) [Ratio] 15.5 % 11.6-14.6 [facility] Erythrocyte distribution wid th standard deviationOrdered By: Garfield Mora on 04-24-2023 Erythrocyte distribution width (RBC) [Entitic vol] 46.2 fL 35.1-43.9 [facility] Hematocrit Auto (Bld) [Volum e fraction]Ordered By: Garfield Mora on 04-24-2023 Hematocrit (Bld) [Volume fraction] 41.7 % 37-47 [facility] Laboratory - Chemistry and C hemistry - challengeOrdered By: Garfield Mora on 04-24-2023 CO2 [Moles/Vol] 29.0 mmol/L 21.0-32.0 [facility] Urea nitrogen/Creatinine [Mass ratio] 22.0 mg/mg 10-20 [facility] Laboratory - Hematology and Cell countsOrdered By: Garfield Mora on 04-24-2023 MCH (RBC) [Entitic mass] 26.1 pg 27.0-32.0 [facility] MCHC (RBC) [Mass/Vol] 32.1 g/dL 32-36 [facility] Platelet mean volume (Bld) [Entitic vol] 9.5 fL 6.2-12.0 [facility] Platelets (Bld) [#/Vol] 472 10*3/uL 150-450 [facility] No Panel InformationOrdered By: Garfield Mora on 04-24-2023 Estimated GFR (MDRD) Amer 95 mL/min >60 [facility] Comment on above: GFR Calc Estimated GFR (MDRD) Non-Af Amer 79 mL/min >60 [facility] Comment on above: Non- GFR Calc RBC Auto (Bld) [#/Vol]Ordere d By: Garfield Mora on 04-24-2023 RBC (Bld) [#/Vol] 5.14 10*6/uL 4.2-5.4 [facility] Serum or plasma calcium dipika urement (mass/volume)Ordered By: Garfield Mora on 04-24-2023 Calcium [Mass/Vol] 9.7 mg/dL 8.5-10.1 [facility] Serum or plasma creatinine m easurement (mass/volume)Ordered By: Garfield Mora on 04-24-2023 Creatinine [Mass/Vol] 0.77 mg/dL 0.55-1.02 [facility] Comment on above: The validity of the calculated GFR & GFRAA in patients over 70 years has not been determined. Clinical correlation is essential. Serum or plasma urea nitroge n measurement (mass/volume)Ordered By: Garfield Mroa on 04-24-2023 Urea nitrogen [Mass/Vol] 17 mg/dL 7-18 [facility] Thin prep Papanicolaou smear with manual screeningOrdered By: Garfield Mora on 04-24-2023 Thin prep Papanicolaou smear with manual screening 3 5-15 [facility] Absolute lymphocyte counton 05-29-2022 Lymphocytes Auto (Unsp spec) [#/Vol] 2.10 10*3/uL 0.83-4.51 [facility] Basophil percentageon 2022 Basophils/100 WBC (Bld) 0.8 % 0-[address] [facility] Bilirubin [Mass/Vol] 0.40 mg/dL 0.20-1.00 [facility] Comment on above: For patients on eltr ombopag therapy, use of Dimension [place] TBIL is not recommended. Chloride [Moles/Vol] 106 mmol/L 98-107 [facility] Cholesterol [Mass/Vol] 231 mg/dL <200 [facility] Comment on above: <200 mg/dL Desirable 200-240 mg/dL Borderline >240 mg/dL High Risk Eosinophils/100 WBC (Bld) 2.8 % 0-5 [facility] Glucose [Mass/Vol] 91 mg/dL 74-106 [facility] Neutrophils (Bld) [#/Vol] 5.9 10*3/uL 2.0-7.7 [facility] Neutrophils/100 WBC (Bld) 65.7 % 47-70 [facility] Potassium [Moles/Vol] 4.2 mmol/L 3.5-5.1 [facility] Protein [Mass/Vol] 7.6 g/dL 6.4-8.2 [facility] Sodium [Moles/Vol] 136 mmol/L 136-145 [facility] Triglyceride [Mass/Vol] 67 mg/dL <199 [facility] Comment on above: The drugs N-Acetylcy steine and Metamizole may falsely depress this assay.Serum Triglycerides Reference Interval Normal <150 mg/dL Borderline high 150 - 199 mg/dL High 200 - 499 mg/dL Very High > or = 500 mg/dL WBC (Bld) [#/Vol] 9.0 10*3/uL 4.4-11.0 [facility] Blood erythrocytes count (nu mber/volume)on 05-29-2022 RBC (Bld) [#/Vol] 5.23 10*6/uL 4.2-5.4 [facility] Blood hemoglobin measurement (mass/volume)on 05-29-2022 Hemoglobin (Bld) [Mass/Vol] 13.6 g/dL 12.0-15.0 [facility] Blood lymphocytes/100 leukoc yteson 05-29-2022 Lymphocytes/100 WBC (Bld) 23.4 % 19-41 [facility] Blood monocytes/100 leukocyt eson 05-29-2022 Monocytes/100 WBC (Bld) 7.1 % 0-[address] [facility] Blood platelet mean volumeon 05-29-2022 Platelet mean volume (Bld) [Entitic vol] 10.1 fL 6.2-12.0 [facility] Determination of erythrocyte mean corpuscular volume (MCV)on 05-29-2022 MCV (RBC) [Entitic vol] 83.0 fL 81-99 [facility] Hematocrit Auto (Bld) [Volum e fraction]on 05-29-2022 Hematocrit (Bld) [Volume fraction] 43.4 % 37-47 [facility] Laboratory - Chemistry and C hemistry - challengeon 05-29-2022 ALP [Catalytic activity/Vol] 86 U/L 45-117 [facility] ALT [Catalytic activity/Vol] 26 U/L 13-56 [facility] CO2 [Moles/Vol] 26.0 mmol/L 21.0-32.0 [facility] Globulin (S) [Mass/Vol] 3.8 g/dL 2.2-4.2 [facility] Urea nitrogen/Creatinine [Mass ratio] 19.1 mg/mg 10-20 [facility] Laboratory - Hematology and Cell countson 05-29-2022 Erythrocyte distribution width (RBC) [Entitic vol] 45.1 fL 35.1-43.9 [facility] Erythrocyte distribution width (RBC) [Ratio] 14.9 % 11.6-14.6 [facility] Immature granulocytes/100 WBC (Bld) 0.200 % 0.0-0.9 [facility] Comment on above: IG% - Immature Granu locytes (promyelocytes, myelocytes and metamyelocytes) > 1% indicates that a LEFT SHIFT is Present. MCH (RBC) [Entitic mass] 26.0 pg 27.0-32.0 [facility] Nucleated RBC/100 WBC (Bld) [Ratio] 0 % 0-5 [facility] MCHC Auto (RBC) [Mass/Vol]on 05-29-2022 MCHC (RBC) [Mass/Vol] 31.3 g/dL 32-36 [facility] No Panel Informationon 05-29 Estimated GFR (MDRD) Amer 110 mL/min >60 [facility] Comment on above: GFR Calc Estimated GFR (MDRD) Non-Af Amer 91 mL/min >60 [facility] Comment on above: Non- GFR Calc Thyroid Stimulating Hormone (TSH) 1.22 uIU/mL 0.358-3.74 [facility] Platelets bldon 05-29-2022 Platelets (Bld) [#/Vol] 388 10*3/uL 150-450 [facility] Serum or plasma albumin dipika urement (mass/volume)on 05-29-2022 Albumin [Mass/Vol] 3.8 g/dL 3.2-5.0 [facility] Serum or plasma albumin/glob ulin mass ratioon 05-29-2022 Albumin/Globulin [Mass ratio] 1.0 {ratio} 0.9-2.4 [facility] Serum or plasma calcium dipika urement (mass/volume)on 05-29-2022 Calcium [Mass/Vol] 9.3 mg/dL 8.5-10.1 [facility] Serum or plasma cholesterol in HDL measurement (mass/volume)on 05-29-2022 Cholesterol in HDL [Mass/Vol] 75 mg/dL >40 [facility] Comment on above: The drugs N-Acetylcy steine and Metamizole may falsely depress this assay. Reference Range HDL <40 mg/dL Low HDL Cholesterol HDL >or= 60 mg/dL High HDL Cholesterol Serum or plasma cholesterol in VLDL measurement (mass/volume)on 05-29-2022 Cholesterol in VLDL [Mass/Vol] 13 mg/dL 5-40 [facility] Serum or plasma creatinine m easurement (mass/volume)on 05-29-2022 Creatinine [Mass/Vol] 0.68 mg/dL 0.55-1.02 [facility] Comment on above: The validity of the calculated GFR & GFRAA in patients over 70 years has not been determined. Clinical correlation is essential. Serum or plasma low density lipoprotein (LDL) cholesterol measurement (mass/volume)on 05-29-2022 Cholesterol in LDL [Mass/Vol] 143 mg/dL 0-130 [facility] Serum or plasma urea nitroge n measurement (mass/volume)on 05-29-2022 Urea nitrogen [Mass/Vol] 13 mg/dL 7-18 [facility] Thin prep Papanicolaou smear with manual screeningon 05-29-2022 Thin prep Papanicolaou smear with manual screening 20 U/L 15-37 [facility] Thin prep Papanicolaou smear with manual screening 4 -15 [facility] Office Visit: [facility]: Contact saldana 09-29-2016 Documentation of current medications (procedure) Done Invalid Interpretation Code [facility] Work Phone: Tobacco smoking status NHIS Never Invalid Interpretation Code [facility] Work Phone: Tobacco use CPHS Never smoker Invalid Interpretation Code [facility] Work Phone: Vital Signs Date Time Vital Sign Value Performing Clinician Faci lity 10-25-2022 09:59-0400 Body height 160.[address] Wiseman [facility] 10-25-2022 09:59-0400 Body mass index (BMI) [Ratio] 34.5 kg/m2 Dr. Wiseman [facility] 10-25-2022 09:59-0400 Body temperature 98.2 [degF] Dr. Wiseman [facility] 10-25-2022 09:59-0400 Body weight 88.[address] Wiseman [facility] 10-25-2022 09:59-0400 Diastolic blood pressure 78 mm[Hg] Dr. Wiseman [facility] 10-25-2022 09:59-0400 Heart rate 92 /min Dr. Wiseman [facility] 10-25-2022 09:59-0400 Respiratory rate 16 /min Dr. Wiseman [facility] 10-25-2022 09:59-0400 SaO2% (BldA) [Mass fraction] 95 % Dr. Wiseman [facility] 10-25-2022 09:59-0400 Systolic blood pressure 131 mm[Hg] Dr. Wiseman [facility] 09-29-2016 14:52-0400 BMI (Body Mass Index) 35.04 kg/m2 Tere Lynch LPN [facility] Work Phone: 09-29-2016 14:52-0400 Body Temperature 98.7 [degF] Tere Lynch LPN [facility] Work Phone: 09-29-2016 14:52-0400 BP Diastolic 84 mm[Hg] Tere Lynch LPN [facility] Work Phone: 09-29-2016 14:52-0400 BP Systolic 128 mm[Hg] Tere Lynch LPN [facility] Work Phone: 09-29-2016 14:52-0400 Height 161.29 cm Tere Lynch LPN [facility] Work Phone: 09-29-2016 14:52-0400 Pulse (Heart Rate) 91 /min Tere Lynch LPN [facility] Work Phone: 09-29-2016 14:52-0400 Respiratory Rate 14 /min Tere Lynch LPN [facility] Work Phone: 09-29-2016 14:52-0400 Weight 91.17 kg Tere Lynch LPN [facility] Work Phone: Encounters Encounter Date Encounter Type Care Provider Facility Start: 06-30-2024 End: 06-30-2024 ambulatory Chayo Overton MEDICAL MANAGEMENT SPECIALIST-C Work Phone: [facility] Work Phone: Start: 06-30-2024 End: 06-30-[address] Garfield Mora MD -Radiology [facility] Work Phone: Start: 06-30-2024 End: 06-30-2024 ambulatory Chayo Overton Facility:[facility] Start: 06-03-2024 End: 06-03-2024 ambulatory Chaoy Overton MEDICAL MANAGEMENT SPECIALIST-C Work Phone: [facility] Work Phone: Start: 06-03-2024 End: 06-03-2024 Patient encounter procedure Chayo Overton MEDICAL MANAGEMENT SPECIALIST-C -Sunita Steinberg [facility] Start: 06-03-2024 End: 06-03-2024 ambulatory Chayo Overton Facility:[facility] Start: 02-18-2024 End: 02-18-2024 Patient encounter procedure Chayo Overton MEDICAL MANAGEMENT SPECIALIST-C -[facility] Work Phone: Start: 02-18-2024 End: 02-18-2024 ambulatory Chayo Overton Facility:[facility] Start: 01-22-2024 End: 01-22-2024 ambulatory Chayo Wili Facility:[facility] Start: 07-30-2023 End: 07-30-2023 ambulatory Chayo Wili Facility:[facility] Start: 05-17-2023 End: 05-17-2023 ambulatory MEDICAL MANAGEMENT SPECIALIST-C Chayo Overton Work Phone: [facility] Work Phone: Start: 05-17-2023 End: 05-17-2023 Patient encounter procedure MEDICAL MANAGEMENT SPECIALIST-C Chayo Overton Work Phone: [facility]-Laboratory, [place] Work Phone: Start: 04-24-2023 End: 04-24-2023 Non-patient / Non-visit MEDICAL MANAGEMENT SPECIALIST-C Chayo Overton Work Phone: [facility] Work Phone: Start: 04-24-2023 End: 04-24-2023 ambulatory MEDICAL MANAGEMENT SPECIALIST-C Chayo Overton Work Phone: [facility] Work Phone: Start: 04-24-2023 End: 04-24-2023 Patient encounter procedure MEDICAL MANAGEMENT SPECIALIST-C Chayo Overton Work Phone: [facility]-Pulmonary Services/Neurology Work Phone: Start: 03-28-2023 End: 03-28-2023 ambulatory [facility] Work Phone: Start: 03-28-2023 End: 03-28-2023 Patient encounter procedure [facility]-Ultrasound, [facility] Work Phone: Start: 03-26-2023 End: 03-26-2023 ambulatory [facility] Work Phone: Start: 03-26-2023 End: 03-26-2023 Patient encounter procedure [facility]-Radiology, [place] Work Phone: Start: 01-17-2023 End: 01-17-[address] Bowen Barnes [facility] Work Phone: Start: 01-17-2023 End: 01-17-[address] Bowen Barnes [facility]-Outpatient Breast Imaging Work Phone: Start: 10-25-2022 End: 10-25-[address] Bowen Barnes [facility] Work Phone: Start: 05-29-2022 End: 05-29-2022 ambulatory [facility] Work Phone: Start: 05-29-2022 End: 05-29-2022 Patient encounter procedure [facility] Start: 01-16-2022 End: 01-16-2022 ambulatory [facility] Work Phone: Start: 01-16-2022 End: 01-16-2022 Patient encounter procedure [facility]-Outpatient Breast Imaging Procedures Date Procedure Procedure Detail Performing Clinician Start: 06-30-2024 Plain X-ray abdomen Shelton Overton MEDICAL MANAGEMENT SPECIALIST-C Work Phone: Start: 06-03-2024 Vitamin D, 25-hydrox y measurement Chayo Overton MEDICAL MANAGEMENT SPECIALIST-C Work Phone: Comment on above: Vitamin D StatusDefi ciency: <20 ng/mL (50nmol/L)Insufficiency: 20-30 ng/mL (50-75 nmol/L)Sufficiency: 30-100 ng/mL (75-250 nmol/L)Toxicity: >100 ng/mL (>250 nmol/L) Start: 02-18-2024 X-ray of chest, PA a nd lateral views Chayo Overton MEDICAL MANAGEMENT SPECIALIST-C Work Phone: Start: 03-28-2023 US urinary tract Start: 03-26-2023 X-ray of unilateral ribs, two views without x-ray of chest Start: 01-17-2023 Screening mammography Britany Barnes Start: 01-16-2022 Screening mammography Plan of Treatment Date Care Activity Detail Author Start: 09-29-2016 End: 09-29-2016 Appointment Appointment [facility] Work Phone: Patient Education CONTACT%20[facility]IT[facility] Work Phone: Immunizations Immunization Date Immunization Notes Care Provider Jenna viveros 10-01-2014 tetanus toxoid, redu nazario diphtheria toxoid, and acellular pertussis vaccine, adsorbed [facility] Payers Date Payer Category Payer Self-pay [id number] 2023 Medicare [id number] 2013 Unknown [employer] [id number] Unknown [employer] [id number] Unknown [id number] [id number] [id number] Unknown [id number] [id number] [id number] Unknown [id number] [id number] [id number] Unknown [id number] [id number] Unknown [id number] [id number] Social History Date Type Detail Facility Start: 06-15-2020 End: 10-25-2022 Tobacco smoking status NHIS Unknown if ever smoked [facility] Start: 02-18-[address] [facility] Start: 02-18-2019 Spouse/ Signif icant Other [facility] Start: 06-15-2020 Non-smoker [facility] Start: 1955 Sex Assigned At Female [facility] Start: 10-25-2022 Tobacco smoking status NHIS Ex-smoker (finding) [facility] Start: 06-07-2024 Sex Female (finding) [facility] Medical Equipment Procedure Code Equipment Code Equipment Original Text Equipment Identifier Dates Arthroscopy, knee, with ACL reconstruction using allograft or autograft GRAFTBOLT,10MM FDA Start: 06-28-2020 Arthroscopy, knee, with ACL reconstruction using allograft or autograft TENDON, ANT TIB NON IRRADIATE FDA Start: 06-28-2020 Arthroscopy, knee, with ACL reconstruction using allograft or autograft TIGHTROPE,ACL FDA Start: 06-28-2020 Arthroscopy, knee, with ACL reconstruction using allograft or autograft GRAFTBOLT,10MM FDA Start: 06-28-2020 Arthroscopy, knee, with ACL reconstruction using allograft or autograft TENDON, ANT TIB NON IRRADIATE FDA Start: 06-28-2020 Arthroscopy, knee, with ACL reconstruction using allograft or autograft TIGHTROPE,ACL FDA Start: 06-28-2020 Arthroscopy, knee, with ACL reconstruction using allograft or autograft GRAFTBOLT,10MM FDA Start: 06-28-2020 Arthroscopy, knee, with ACL reconstruction using allograft or autograft TENDON, ANT TIB NON IRRADIATE FDA Start: 06-28-2020 Arthroscopy, knee, with ACL reconstruction using allograft or autograft TIGHTROPE,ACL FDA Start: 06-28-2020 Arthroscopy, knee, with ACL reconstruction using allograft or autograft GRAFTBOLT,10MM FDA Start: 06-28-2020 Arthroscopy, knee, with ACL reconstruction using allograft or autograft TENDON, ANT TIB NON IRRADIATE FDA Start: 06-28-2020 Arthroscopy, knee, with ACL reconstruction using allograft or autograft TIGHTROPE,ACL FDA Start: 06-28-2020 Arthroscopy, knee, with ACL reconstruction using allograft or autograft GRAFTBOLT,10MM FDA Start: 06-28-2020 Arthroscopy, knee, with ACL reconstruction using allograft or autograft TENDON, ANT TIB NON IRRADIATE FDA Start: 06-28-2020 Arthroscopy, knee, with ACL reconstruction using allograft or autograft TIGHTROPE,ACL FDA Start: 06-28-2020 Arthroscopy, knee, with ACL reconstruction using allograft or autograft GRAFTBOLT,10MM FDA Start: 06-28-2020 Arthroscopy, knee, with ACL reconstruction using allograft or autograft TENDON, ANT TIB NON IRRADIATE FDA Start: 06-28-2020 Arthroscopy, knee, with ACL reconstruction using allograft or autograft TIGHTROPE,ACL FDA Start: 06-28-2020 Arthroscopy, knee, with ACL reconstruction using allograft or autograft GRAFTBOLT,10MM FDA Start: 06-28-2020 Arthroscopy, knee, with ACL reconstruction using allograft or autograft TENDON, ANT TIB NON IRRADIATE FDA Start: 06-28-2020 Arthroscopy, knee, with ACL reconstruction using allograft or autograft TIGHTROPE,ACL FDA Start: 06-28-2020 Arthroscopy, knee, with ACL reconstruction using allograft or autograft GRAFTBOLT,10MM FDA Start: 06-28-2020 Arthroscopy, knee, with ACL reconstruction using allograft or autograft TENDON, ANT TIB NON IRRADIATE FDA Start: 06-28-2020 Arthroscopy, knee, with ACL reconstruction using allograft or autograft TIGHTROPE,ACL FDA Start: 06-28-2020 Arthroscopy, knee, with ACL reconstruction using allograft or autograft GRAFTBOLT,10MM FDA Start: 06-28-2020 Arthroscopy, knee, with ACL reconstruction using allograft or autograft TENDON, ANT TIB NON IRRADIATE FDA Start: 06-28-2020 Arthroscopy, knee, with ACL reconstruction using allograft or autograft TIGHTROPE,ACL FDA Start: 06-28-2020 STENT,URETERAL 6FR PIG 6X26 FDA Start: 02-19-2019 STENT,URETERAL 6FR PIG 6X26 FDA Start: 03-19-2019 STENT,URETERAL 6FR PIG 6X26 FDA Start: 02-19-2019 STENT,URETERAL 6FR PIG 6X26 FDA Start: 03-19-2019 STENT,URETERAL 6FR PIG 6X26 FDA Start: 02-19-2019 STENT,URETERAL 6FR PIG 6X26 FDA Start: 03-19-2019 STENT,URETERAL 6FR PIG 6X26 FDA Start: 02-19-2019 STENT,URETERAL 6FR PIG 6X26 FDA Start: 03-19-2019 STENT,URETERAL 6FR PIG 6X26 FDA Start: 02-19-2019 STENT,URETERAL 6FR PIG 6X26 FDA Start: 03-19-2019 STENT,URETERAL 6FR PIG 6X26 FDA Start: 02-19-2019 STENT,URETERAL 6FR PIG 6X26 FDA Start: 03-19-2019 STENT,URETERAL 6FR PIG 6X26 FDA Start: 02-19-2019 STENT,URETERAL 6FR PIG 6X26 FDA Start: 03-19-2019 STENT,URETERAL 6FR PIG 6X26 FDA Start: 02-19-2019 STENT,URETERAL 6FR PIG 6X26 FDA Start: 03-19-2019 STENT,URETERAL 6FR PIG 6X26 FDA Start: 02-19-2019 STENT,URETERAL 6FR PIG 6X26 FDA Start: 03-19-2019 Radiology Diagnostic study note 07-01-2024 Note Date & Type Note Facility 07-01-2024 Radiology Diagnostic study note [facility] Imaging Services [address], [place] [address] Abdomen Single View MR#: [id number] Acct: [id number] Name: BRENDA BENITEZ Rep #: [id number] : 1955 F 69 From: Raman Rodriguez MD PCP: BECCA GrayC Status: REG CLI Study:Abdomen Single View Date of Exam: 06/30/24 Exam# [id number] Ordering Dr: Nima Mora MD PROCEDURE: ABDOMEN SINGLE VIEW 06/30/2024 REASON FOR EXAM: CALCULUS OF KIDNEY TECHNIQUE: Single view abdomen. 2 images to include the entire abdomen and pelvis COMPARISON: 10/18/2020 FINDINGS: A couple of small faint density suggested at the central aspect of the left renal shadow may represent stones or possible bowel material. Pelvic calcifications are not significantly changed since the prior. No gaseous distention of bowel. Lower lumbar facet degenerative changes. RAD/Abdomen Single View IMPRESSION: A couple of small faint density suggested at the central aspect of the left renal shadow may represent stones or possible bowel material. Reading Location: [id number] CC: VEE Overton; Dr. Garfield Mora MD ~ [employer] Instructor: Signed [facility] Evaluation note Note Date & Type Note Facility Evaluation note No assessment information availa ble [facility] Work Phone: Evaluation note Note Date & Type Note Facility Evaluation note Diagnosis Onset Date Acute right otitis media acu te [facility] Work Phone: Reason for referral (narrative) Note Date & Type Note Facility Reason for referral (narrative) No reason for referral information available [facility] Work Phone: Chief Complaint and Reason for Visit Chief Complaint SCREENING Chief Complaint RIGHT EAR PAIN SCREENING Reason for Visit Acute right otitis m edia Chief Complaint SCREENING LEFT KIDNEY PAIN Chief Complaint SCREENING LEFT KIDNEY PAIN PRE OP PREOP Chief Complaint LEFT KIDNEY PAIN PRE OP PREOP Chief Complaint Admit Date CHEST XRAY February 18, 2024 9:37am Family History No Family History Records Found Relationship Condition Age at Onset Recorded Date/T sarah Unknown Family History?Diabe breann, Hypertension Unknown March 14, 2019 10:28am Family History?Hypertension Unknown March 14, 2019 10:28am Relationship Condition Age at Onset Recorded Date/T sarah Unknown Family History?Diabe breann, Hypertension Unknown March 14, 2019 11:28am Family History?Hypertension Unknown March 14, 2019 11:28am Relationship Condition Age at Onset Recorded Date/T sarah Unknown Family History?Diabe breann, Hypertension Unknown March 14, 2019 10:28am Family History?Hypertension Unknown March 14, 2019 10:28am Family History?Hypertension Unknown September 08, 2022 8:59am Relationship Condition Age at Onset Recorded Date/T sarah Unknown Family History?Diabe breann, Hypertension Unknown March 14, 2019 11:28am Family History?Hypertension Unknown March 14, 2019 11:28am Family History?Hypertension Unknown September 08, 2022 9:59am Advance Directives No Advanced Directives Records Found Advance Directive Response Recorded Date/ Time Advance Directives No September 09 2:15pm Living Will No June 15, 2020 9:47am Power of Pony Rougher No June 15 9:47am Advance Directive Response Recorded Date/ Time Advance Directives No September 09 3:15pm Living Will No June 15, 2020 10:47am Power of Pony Rougher No June 15 10:47am Advance Directive Response Recorded Date/ Time Advance Directives No September 08 8:59am Living Will No September 08, 2022 8:59am Power of Pony Rougher No September 08 8:59am Advance Directive Response Recorded Date/ Time Advance Directives No September 08 9:59am Living Will No September 08, 2022 9:59am Power of Pony Rougher No September 08 9:59am Advance Directive Response Recorded Date/ Time Advance Directives No September 08 9:59am Summary Purpose Additional Source Comments Goals (unrecognized section and content) Goals may be documented in a n alternate sectionGoals may be documented in an alternate sectionGoals may be documented in an alternate sectionGoals may be documented in an alternate sectionGoals may be documented in an alternate sectionGoals may be documented in an alternate sectionGoals may be documented in an alternate sectionGoals may be documented in an alternate sectionGoals may be documented in an alternate section Care Teams (unrecognized sec tion and content) Team Status: Active Member Role Status Dates Dr. Bowen Barnes MD Family Provider Active Dr. Bowen Barnes MD Primary Care Provider Active Team Status: Inactive Member Role Status Dates Dr. Bowen Barnes MD Primary Care Provider Active WILI ROSALES Attending Provider, Referring Provider A ctive Team Status: Inactive Member Role Status Dates Dr. Bowen Barnes MD Primary Care Provider, Referring Provider Active Fabian GAMBOA, PA Attending Provider Active Team Status: Inactive Member Role Status Dates Dr. Bowen Barnes MD Primary Care Provider Active Chayo Overton NP-C Attending Provider, Referring Prov ider Active Team Status: Active Member Role Status Dates Dr. Bowen Barnes MD Family Provider Active Chayo Overton NP-C Primary Care Provider Active Team Status: Inactive Member Role Status Dates Chayo Overton NP-C Primary Care Provide r, Attending Provider, Referring Provider Active Team Status: Active Member Role Status Dates Chayo Overton NP-C Primary Care Provide r, Attending Provider, Referring Provider Active Team Status: Active Member Role Status Dates Chayo Overton NP-C Primary Care Provider Active Dr. Keven Lopez MD Attending Provider Active Dr. Garfield Mora MD Referring Provider Active Team Status: Inactive Member Role Status Dates Chayo Overton NP-C Primary Care Provider Active Dr. Garfield Mora MD Attending Provider, Referr ing Provider Active Team Status: Inactive Member Role Status Dates Chayo Overton NP-C Primary Care Provider Active Start: February 18, 2024 End: February 18, 2024 Chayo Overton NP-C Attending Provider Active St art: February 18, 2024 End: February 18, 2024 Chayo Wili , MEDICAL MANAGEMENT SPECIALIST-C Referring Provider Active St art: February 18, 2024 End: February 18, 2024 Team Status: Inactive Member Role Status Dates VEE Grya Primary Care Provider Active Start: June 03, 2024 End: June 03, 2024 VEE Gray Attending Provider Active St art: June 03, 2024 End: June 03, 2024 Team Status: Inactive Member Role Status Dates VEE Gray Primary Care Provider Active Start: June 30, 2024 End: June 30, 2024 Dr. Garfield Mora MD Attending Provider Active Start: June 30, 2024 End: June 30, 2024 Dr. Garfield Mora MD Referring Provider Active Start: June 30, 2024 End: June 30, 2024 INFORMATION SOURCE (unrecogn ized section and content) DATE CREATED AUTHOR 07/05/2024 [facility] FOR RECORDS PERTAINING TO PATIENTS WHO ARE [...] BE BASED ON THE PRIMARY CLINICAL RECORDS. official[employer] [facility]. provides no warranty or guarantee of the accuracy or completeness of information in this document.
== END | disposition home or self-care (01) ==
LOC: OPBI 11:58
PROVIDERS: PCP Nurse Practitioner Family; Referring Provider Nurse Practitioner Family; Visit Provider Nurse Practitioner Family
DX: Z12.31 Encounter for screening mammogram for malignant neoplasm of breast (principal)
CPT/HCPCS: 77063; 77067